=== PATIENT | male | born 1950 | race Caucasian/White ===

== ENCOUNTER → 2020-04-20 09:17 | Outpatient (BNVA) | payer MEDICARE, SELFPAY | PROVIDERS: PCP Nurse Practitioner Family; Visit Provider Urology | DX: N13.30 Unspecified hydronephrosis (principal); N32.0 Bladder-neck obstruction; N52.9 Male erectile dysfunction, unspecified | CPT/HCPCS: 81002; 99212 ==

== ENCOUNTER → 2020-04-22 08:52 | Outpatient (BNVA) | payer MEDICARE, SELFPAY | PROVIDERS: Visit Provider Orthopaedic Surgery | DX: M19.071 Primary osteoarthritis, right ankle and foot (principal); I10 Essential (primary) hypertension | CPT/HCPCS: 20605; 99212; J1100 ==

== ENCOUNTER → 2020-05-05 07:09 | Outpatient (REF) | payer MEDICARE, SELFPAY ==
--- NOTE | 2020-05-05 07:17 | NM_ITS ---
EXAMINATION: NM KIDNEY IMAGING CLINICAL INFORMATION: Atrophy of kidney. COMPARISON: None TECHNIQUE: Following intravenous administration of 10 mCi of 99m Tc DTPA,, imaging over the posterior abdomen was obtained up to 60 minutes. 40 mg of Lasix was administered at 30 minutes into the procedure. FINDINGS: Following IV injection, there is symmetrical bilateral renal perfusion. There is normal cortical uptake with slow excretion and no response post Lasix as more than 50% of contrast was already excreted. On renogram, the right kidney cortical uptake is 56% and the left kidney cortical uptake is 44%. No hydronephrosis or obstruction seen. Time to peak activity in right kidney 3.08 minutes and left kidney 4.08 minutes. NM/NM renal imaging IMPRESSION: Normal bilateral renal perfusion. Almost symmetrical cortical uptake with better cortical function right kidney. No hydronephrosis seen. Post Lasix, there is no significant response as the majority of renal activity has been excreted.
== END ==
LOC: HO.NUCMED 07:09
PROVIDERS: PCP Nurse Practitioner Family; Visit Provider Urology
DX: N26.1 Atrophy of kidney (terminal) (principal); N13.30 Unspecified hydronephrosis
CPT/HCPCS: 78700; A9539; J1940

== ENCOUNTER → 2020-05-13 08:46 | Outpatient (BNVA) | payer MEDICARE, SELFPAY | PROVIDERS: PCP Nurse Practitioner Family; Visit Provider Urology | DX: N13.30 Unspecified hydronephrosis (principal); N32.0 Bladder-neck obstruction | CPT/HCPCS: Q3014 ==

== ENCOUNTER → 2020-07-16 09:49 | Outpatient (BNVA) | payer MEDICARE, SELFPAY | PROVIDERS: Visit Provider Physician Assistant | DX: M77.01 Medial epicondylitis, right elbow (principal) | CPT/HCPCS: 20551; 99212; J1020 ==

== ENCOUNTER 2020-11-02 07:52 | Outpatient (REF) | payer MEDICARE, SELFPAY ==
[2020-11-02 12:17] LABS: TSH reflex Free T4 0.77 uIU/mL (0.32-4.0)
[2020-11-02 12:22] LABS: Alanine Aminotransferase 17 U/L (0-40); Albumin Level 4.5 g/dL (3.5-5.0); Alkaline Phosphatase 65 U/L (39-117); Anion Gap 16 (12-20); Aspartate Amino Transferase 18 U/L (5-37); Bilirubin Total 0.8 mg/dL (0.0-1.0); Blood Urea Nitrogen 29 mg/dL (9-16); Carbon Dioxide 23 mmol/L (22-29); Chloride 95 mmol/L (96-108); Cholesterol 178 mg/dL; Estimated Glomerular Filt Rate 38; Glucose Fasting 97 mg/dL (60-99); HDL Cholesterol 101 mg/dL; LDL Cholesterol Calculated 67 mg/dl; Potassium 4.6 mmol/L (3.3-5.1); Sodium 129 mmol/L (135-145); Total Protein 7.6 g/dL (6.5-8.0); Triglycerides 54 mg/dL
== END 2020-11-02 07:53 | disposition home or self-care (01) ==
LOC: HO.HMGCLDS 07:52
PROVIDERS: PCP Internal Medicine; Visit Provider Nurse Practitioner Family
DX: I10 Essential (primary) hypertension (principal)
CPT/HCPCS: 36415; 80053; 80061; 84443

== ENCOUNTER 2020-11-09 09:07 | Outpatient (REF) | payer MEDICARE, SELFPAY ==
[2020-11-09 11:51] LABS: Osmolality, Serum 275 mosm/kg (281-305)
[2020-11-09 12:09] LABS: Anion Gap 14 (12-20); Carbon Dioxide 24 mmol/L (22-29); Chloride 96 mmol/L (96-108); Potassium 4.8 mmol/L (3.3-5.1); Sodium 129 mmol/L (135-145)
[2020-11-09 12:45] LABS: Osmolality Urine 228 mosm/kg (373-1093)
== END 2020-11-09 09:08 | disposition home or self-care (01) ==
LOC: HO.HMGCLDS 09:07
PROVIDERS: PCP Internal Medicine; Visit Provider Nurse Practitioner Family
DX: E87.1 Hypo-osmolality and hyponatremia (principal)
CPT/HCPCS: 36415; 80051; 83930; 83935

== ENCOUNTER → 2020-11-10 08:21 | Outpatient (BNVA) | payer MEDICARE, SELFPAY | PROVIDERS: PCP Internal Medicine; Visit Provider Urology | DX: N32.0 Bladder-neck obstruction (principal); N52.9 Male erectile dysfunction, unspecified; N13.30 Unspecified hydronephrosis | CPT/HCPCS: 51798; 99212 ==

== ENCOUNTER 2020-11-24 08:06 | Outpatient (REF) | payer MEDICARE, SELFPAY ==
[2020-11-24 12:12] LABS: Anion Gap 15 (12-20); Blood Urea Nitrogen 28 mg/dL (9-16); Calcium 8.9 mg/dL (8.4-10.2); Carbon Dioxide 23 mmol/L (22-29); Chloride 97 mmol/L (96-108); Estimated Glomerular Filt Rate 33; Glucose Random 98 mg/dL (60-115); Potassium 5.3 mmol/L (3.3-5.1); Sodium 130 mmol/L (135-145)
== END 2020-11-24 08:07 | disposition home or self-care (01) ==
LOC: HO.HMGCLDS 08:06
PROVIDERS: PCP Internal Medicine; Visit Provider Internal Medicine
DX: E87.1 Hypo-osmolality and hyponatremia (principal)
CPT/HCPCS: 36415; 80048

== ENCOUNTER 2020-12-22 09:42 | Outpatient (REF) | payer MEDICARE, SELFPAY ==
[2020-12-22 12:22] LABS: Alanine Aminotransferase 20 U/L (0-40); Albumin Level 4.5 g/dL (3.5-5.0); Alkaline Phosphatase 56 U/L (39-117); Anion Gap 15 (12-20); Aspartate Amino Transferase 19 U/L (5-37); Blood Urea Nitrogen 22 mg/dL (9-16); Calcium 9.8 mg/dL (8.4-10.2); Carbon Dioxide 22 mmol/L (22-29); Chloride 103 mmol/L (96-108); Estimated Glomerular Filt Rate 35; Glucose Random 100 mg/dL (60-115); Sodium 135 mmol/L (135-145); Total Protein 7.6 g/dL (6.5-8.0)
== END 2020-12-22 09:43 | disposition home or self-care (01) ==
LOC: HO.HMGCLDS 09:42
PROVIDERS: PCP Internal Medicine; Visit Provider Nurse Practitioner Family
DX: E87.1 Hypo-osmolality and hyponatremia (principal); E87.5 Hyperkalemia
CPT/HCPCS: 36415; 80053

== ENCOUNTER 2021-04-01 09:05 | Outpatient (REF) | payer MEDICARE, SELFPAY ==
[2021-04-01 11:28] LABS: MANUAL DIFF FLAG NO
[2021-04-01 11:33] LABS: Basophils Percent Auto 0.5 % (0-2); Eosinophils Absolute Auto 0.4 X10*3/uL (0.0-0.4); Hematocrit 32.6 % (42.0-52.0); Imm Gran Abs Auto 0.02 X10*3/uL (0.00-0.03); Imm Gran Pct Auto 0.3 % (0.0-0.4); Lymphocytes Absolute Auto 1.9 X10*3/uL (1.2-4.9); Lymphocytes Percent Auto 26.2 % (20-40); Mean Corpuscular HGB Conc 33.7 g/dl (31.0-36.0); Mean Corpuscular Hemoglobin 32.5 pg (27.0-33.0); Mean Corpuscular Volume 96.4 fL (80.0-98.0); Mean Platelet Volume 9.7 fL (9.4-12.4); Monocytes Absolute Auto 0.8 X10*3/uL (0.1-1.2); Monocytes Percent Auto 10.3 % (2-11); Neutrophils Absolute Auto 4.2 x10*3/uL (2.0-8.3); Neutrophils Percent Auto 56.7 % (45-73); Platelet Count 237 X10*3/uL (160-400); Red Blood Count 3.38 X10*6/uL (4.60-5.80); Red Cell Distribution Width 12.4 % (11.0-16.0); White Blood Count 7.4 X10*3/uL (4.8-10.8)
[2021-04-01 11:37] LABS: Appearance Urine CLEAR; Color Urine YELLOW; Glucose Urine UA NEG (NEG); Leukocyte Esterase Urine NEG (NEG); Nitrite Urine NEG (NEG); Specific Gravity - Urine 1.015 (1.005-1.025); Urine Blood NEG (NEG); Urine Ketones NEG (NEG); Urine Protein NEG (NEG-TRACE)
[2021-04-01 12:14] LABS: Prostate Specific Antigen 2.15 ng/mL (<0.05-4.0)
[2021-04-01 12:16] LABS: Ferritin 177 ng/mL (20-250); Vitamin D 25-OH Total 41.4 ng/mL (>30)
[2021-04-01 12:19] LABS: Alanine Aminotransferase 21 U/L (0-40); Albumin Level 4.5 g/dL (3.5-5.0); Alkaline Phosphatase 67 U/L (39-117); Anion Gap 18 (12-20); Aspartate Amino Transferase 17 U/L (5-37); Bilirubin Direct 0.3 mg/dL (0.0-0.5); Bilirubin Total 0.7 mg/dL (0.0-1.0); Blood Urea Nitrogen 38 mg/dL (9-16); Calcium 9.7 mg/dL (8.4-10.2); Carbon Dioxide 23 mmol/L (22-29); Chloride 101 mmol/L (96-108); Cholesterol 177 mg/dL; Estimated Glomerular Filt Rate 19; HDL Cholesterol 95 mg/dL; Iron 63 mcg/dL (45-160); LDL Cholesterol Calculated 70 mg/dl; Magnesium 1.8 mg/dL (1.6-2.6); Percent Iron Saturation 20 % (15-50); Phosphorus 3.1 mg/dL (2.7-4.5); Potassium 4.7 mmol/L (3.3-5.1); Sodium 137 mmol/L (135-145); Total Iron Binding Capacity 323 mcg/dL (228-428); Total Protein 7.9 g/dL (6.5-8.0); Triglycerides 62 mg/dL; Unsaturated Iron Binding 260 ug/dL; Uric Acid 13.1 mg/dL (3.4-7.0)
[2021-04-01 12:20] LABS: Creatinine Urine 181.46 mg/dL; Total Protein Urine Random 18 mg/dL (<12)
[2021-04-01 12:27] LABS: Folate 19.4 ng/mL (> or = 4.0); Vitamin B12 379 pg/mL (200-900)
[2021-04-04 12:15] LABS: PTHI 39 pg/mL (14-64)
== END 2021-04-01 09:06 | disposition home or self-care (01) ==
LOC: HO.HMGCLDS 09:05
PROVIDERS: Absent Provider Urology; PCP Internal Medicine; Visit Provider Internal Medicine Nephrology
DX: N40.1 Benign prostatic hyperplasia with lower urinary tract symptoms (principal); N13.8 Other obstructive and reflux uropathy; N32.0 Bladder-neck obstruction; N18.32 Chronic kidney disease, stage 3b; N13.70 Vesicoureteral-reflux, unspecified; Z12.5 Encounter for screening for malignant neoplasm of prostate
CPT/HCPCS: 36415; 80051; 80061; 80076; 81003; 82306; 82310; 82565; 82607; 82728; 82746; 83540; 83735; 83970; 84100; 84153; 84156; 84520; 84550; 85025

== ENCOUNTER 2021-05-26 15:06 | Outpatient (REF) | payer MEDICARE, SELFPAY ==
--- NOTE | ~2021-05-26 | US_ITS ---
EXAMINATION: US VENOUS ULTRASOUND WITH DOPPLER LOWER EXTREMITY, RIGHT CLINICAL INFORMATION: Edema. COMPARISON: None TECHNIQUE: Ultrasound of the deep veins is performed from the hip to the calf with compression sonography and color and pulse Doppler assessment. Spectral analysis with color-flow imaging is performed. FINDINGS: There is normal venous compression and respiratory variation and augmented flow. The visualized common femoral vein, superficial femoral vein, profunda femoral vein, popliteal vein, and the trifurcation region shows no evidence of deep venous thrombosis. There is no significant popliteal fossa cyst. There are 2 focal areas of fluid collection anterior to the knee joint measuring 2.7 x 0.36 x 0.57 cm and 3.0 x 0.40 x 1.6 cm. If the patient's symptoms persist, followup ultrasound in 5 days 7 days might be of value to exclude proximal propagation from a non-visualized calf vein. US/US venous duplex LE RT IMPRESSION: No DVT demonstrated in the right lower extremity. 2 areas of focal fluid collection anterior to the knee joint. Question injury. No fluid collection seen in the popliteal fossa.
== END 2021-05-26 15:07 | disposition home or self-care (01) ==
LOC: HO.HMGCX 15:06
PROVIDERS: PCP Internal Medicine; Visit Provider Physician Assistant Medical
DX: R60.9 Edema, unspecified (principal); M79.604 Pain in right leg
CPT/HCPCS: 93971

== ENCOUNTER → 2021-05-31 08:46 | Outpatient (BNVA) | payer MEDICARE, SELFPAY | PROVIDERS: PCP Internal Medicine; Visit Provider Urology | DX: N32.0 Bladder-neck obstruction (principal); N52.9 Male erectile dysfunction, unspecified | CPT/HCPCS: 51798; 99212 ==

== ENCOUNTER 2021-06-16 08:37 | Outpatient (REF) | payer MEDICARE, SELFPAY ==
--- NOTE | ~2021-06-16 | XR_ITS ---
EXAMINATION: XR KNEE BILATERAL XR KNEE, RIGHT CLINICAL INFORMATION: Pain COMPARISON: None TECHNIQUE: AP standing view of both knees. Lateral and sunrise views of the right knee. FINDINGS: Right knee: No acute fracture or subluxation. Compartmental joint spaces are maintained. No joint effusion. Enthesophyte formation of the patella. Vascular calcifications are noted. Left knee: No acute fracture or subluxation on the frontal view. Joint spaces maintained. XR/XR knee RT 2V IMPRESSION: No acute abnormality of the right knee. No significant arthritic changes.
--- NOTE | ~2021-06-16 | XR_ITS ---
EXAMINATION: XR KNEE BILATERAL XR KNEE, RIGHT CLINICAL INFORMATION: Pain COMPARISON: None TECHNIQUE: AP standing view of both knees. Lateral and sunrise views of the right knee. FINDINGS: Right knee: No acute fracture or subluxation. Compartmental joint spaces are maintained. No joint effusion. Enthesophyte formation of the patella. Vascular calcifications are noted. Left knee: No acute fracture or subluxation on the frontal view. Joint spaces maintained. XR/XR knee standing BI IMPRESSION: No acute abnormality of the right knee. No significant arthritic changes.
== END 2021-06-16 08:38 | disposition home or self-care (01) ==
LOC: HO.HOSX 08:37
PROVIDERS: Visit Provider Orthopaedic Surgery
DX: M70.41 Prepatellar bursitis, right knee (principal)
CPT/HCPCS: 73560; 73565; 99212

== ENCOUNTER → 2021-09-01 09:57 | Outpatient (BNVA) | payer MEDICARE, SELFPAY | PROVIDERS: PCP Internal Medicine; Visit Provider Orthopaedic Surgery | DX: M70.52 Other bursitis of knee, left knee (principal) | CPT/HCPCS: 20610; 99212; J1100 ==

== ENCOUNTER → 2021-11-25 08:54 | Outpatient (BNVA) | payer MEDICARE, SELFPAY | PROVIDERS: PCP Internal Medicine; Visit Provider Urology | DX: N52.9 Male erectile dysfunction, unspecified (principal); N32.0 Bladder-neck obstruction; N13.30 Unspecified hydronephrosis | CPT/HCPCS: 51798; 99212 ==

== ENCOUNTER 2022-07-12 08:02 | Outpatient (REF) | payer MEDICARE, SELFPAY ==
[2022-07-12 11:04] LABS: MANUAL DIFF FLAG NO
[2022-07-12 11:17] LABS: Basophils Absolute Auto 0.1 X10*3/uL (0.0-0.2); Basophils Percent Auto 0.6 % (0-2); Eosinophils Absolute Auto 0.4 X10*3/uL (0.0-0.4); Eosinophils Percent Auto 5.1 % (0-4); Hematocrit 35.6 % (42.0-52.0); Hemoglobin 11.9 g/dl (14.0-18.0); Imm Gran Abs Auto 0.03 X10*3/uL (0.00-0.03); Imm Gran Pct Auto 0.4 % (0.0-0.4); Lymphocytes Absolute Auto 2.4 X10*3/uL (1.2-4.9); Lymphocytes Percent Auto 29.4 % (20-40); Mean Corpuscular HGB Conc 33.4 g/dl (31.0-36.0); Mean Corpuscular Hemoglobin 32.8 pg (27.0-33.0); Mean Corpuscular Volume 98.1 fL (80.0-98.0); Mean Platelet Volume 9.5 fL (9.4-12.4); Monocytes Absolute Auto 0.8 X10*3/uL (0.1-1.2); Monocytes Percent Auto 10.1 % (2-11); Neutrophils Absolute Auto 4.4 x10*3/uL (2.0-8.3); Neutrophils Percent Auto 54.4 % (45-73); Platelet Count 276 X10*3/uL (160-400); Red Blood Count 3.63 X10*6/uL (4.60-5.80); Red Cell Distribution Width 12.7 % (11.0-16.0); White Blood Count 8.1 X10*3/uL (4.8-10.8)
[2022-07-12 11:48] LABS: Alanine Aminotransferase 18 U/L (0-40); Albumin Level 4.4 g/dL (3.5-5.0); Alkaline Phosphatase 68 U/L (39-117); Anion Gap 15 (12-20); Aspartate Amino Transferase 15 U/L (5-37); Bilirubin Total 0.9 mg/dL (0.0-1.0); Blood Urea Nitrogen 37 mg/dL (9-16); Calcium 9.1 mg/dL (8.4-10.2); Carbon Dioxide 24 mmol/L (22-29); Chloride 104 mmol/L (96-108); Cholesterol 187 mg/dL; Estimated Glomerular Filt Rate 24; Glucose Fasting 104 mg/dL (60-99); HDL Cholesterol 92 mg/dL; LDL Cholesterol Calculated 83 mg/dl; Sodium 138 mmol/L (135-145); Total Protein 7.8 g/dL (6.5-8.0); Triglycerides 62 mg/dL
== END 2022-07-12 08:03 | disposition home or self-care (01) ==
LOC: HO.HMGCLDS 08:02
PROVIDERS: PCP Internal Medicine; Visit Provider Internal Medicine
DX: I12.9 Hypertensive chronic kidney disease with stage 1 through stage 4 chronic kidney disease, or unspecified chronic kidney disease (principal); N18.30 Chronic kidney disease, stage 3 unspecified; E78.5 Hyperlipidemia, unspecified
CPT/HCPCS: 36415; 80053; 80061; 85025

== ENCOUNTER 2022-11-23 07:32 | Outpatient (REF) | payer MEDICARE, SELFPAY ==
[2022-11-23 11:08] LABS: MANUAL DIFF FLAG NO
[2022-11-23 11:29] LABS: Appearance Urine Clear; Color Urine Yellow; Glucose Urine UA Negative (Negative); Leukocyte Esterase Urine Negative (Negative); Nitrite Urine Negative (Negative); Specific Gravity - Urine 1.015 (1.005-1.025); UMIC TRIGGER UACC YES; Urine Blood Negative (Negative); Urine Ketones Negative (Negative); Urine Protein 30 (1+) mg/dL (Neg-Trace)
[2022-11-23 11:32] LABS: Basophils Absolute Auto 0.1 X10*3/uL (0.0-0.2); Basophils Percent Auto 0.8 % (0-2); Eosinophils Absolute Auto 0.7 X10*3/uL (0.0-0.4); Eosinophils Percent Auto 8.3 % (0-4); Hematocrit 33.4 % (42.0-52.0); Hemoglobin 11.6 g/dl (14.0-18.0); Imm Gran Abs Auto 0.04 X10*3/uL (0.00-0.03); Imm Gran Pct Auto 0.5 % (0.0-0.4); Lymphocytes Absolute Auto 2.3 X10*3/uL (1.2-4.9); Lymphocytes Percent Auto 29.3 % (20-40); Mean Corpuscular HGB Conc 34.7 g/dl (31.0-36.0); Mean Corpuscular Hemoglobin 31.9 pg (27.0-33.0); Mean Corpuscular Volume 91.8 fL (80.0-98.0); Mean Platelet Volume 9.2 fL (9.4-12.4); Monocytes Absolute Auto 0.9 X10*3/uL (0.1-1.2); Monocytes Percent Auto 11.5 % (2-11); Neutrophils Absolute Auto 3.9 x10*3/uL (2.0-8.3); Neutrophils Percent Auto 49.6 % (45-73); Platelet Count 272 X10*3/uL (160-400); Red Blood Count 3.64 X10*6/uL (4.60-5.80); Red Cell Distribution Width 12.8 % (11.0-16.0); White Blood Count 7.8 X10*3/uL (4.8-10.8)
[2022-11-23 11:35] LABS: Bacteria Urine None Seen (None Seen); Hyaline Casts Urine 0-2 /LPF (0-2); RBC Urine 0-2 /HPF (0-2); Squamous Epithelial Cell Urine 0-2 /HPF (0-2); WBC Urine 0-5 /HPF (0-5)
[2022-11-23 12:07] LABS: Alanine Aminotransferase 23 U/L (0-40); Albumin Level 4.4 g/dL (3.5-5.0); Alkaline Phosphatase 60 U/L (39-117); Anion Gap 15 (12-20); Aspartate Amino Transferase 22 U/L (5-37); Bilirubin Total 1.3 mg/dL (0.0-1.0); Blood Urea Nitrogen 15 mg/dL (9-16); Calcium 10.3 mg/dL (8.4-10.2); Carbon Dioxide 23 mmol/L (22-29); Chloride 94 mmol/L (96-108); Cholesterol 179 mg/dL; Estimated Glomerular Filt Rate 41; Glucose Fasting 100 mg/dL (60-99); HDL Cholesterol 110 mg/dL; LDL Cholesterol Calculated 60 mg/dl; Potassium 4.8 mmol/L (3.3-5.1); Sodium 127 mmol/L (135-145); Total Protein 7.7 g/dL (6.5-8.0); Triglycerides 49 mg/dL
[2022-11-23 12:15] LABS: Prostate Specific Antigen 2.39 ng/mL (<0.05-4.0)
[2022-11-23 12:24] LABS: TSH reflex Free T4 1.01 uIU/mL (0.32-4.0)
== END 2022-11-23 07:33 | disposition home or self-care (01) ==
LOC: HO.HMGCLDS 07:32
PROVIDERS: Urology; PCP Nurse Practitioner Family; Visit Provider Nurse Practitioner Family
DX: Z12.5 Encounter for screening for malignant neoplasm of prostate (principal); N13.8 Other obstructive and reflux uropathy; N32.0 Bladder-neck obstruction; N40.1 Benign prostatic hyperplasia with lower urinary tract symptoms; I12.9 Hypertensive chronic kidney disease with stage 1 through stage 4 chronic kidney disease, or unspecified chronic kidney disease; N18.30 Chronic kidney disease, stage 3 unspecified
CPT/HCPCS: 36415; 80053; 80061; 81001; 84153; 84443; 85025

== ENCOUNTER 2022-11-28 09:13 | Outpatient (AMB) | payer MEDICARE, SELFPAY ==
--- NOTE | 2022-11-28 09:31 | A.OFFVIS_ITS ---
Intake Intake Visit Reasons: 1Y PSA(psa?) Intake Note: Patient is present for Follow Up PSA Urology Med: Finasteride, Tadalafil Antibiotic Allergy: Sulfa Antibiotic, Trimethroprim Blood Thinner: None Allergies morphine [MORPHINE] Allergy (Mild, Verified 11/28/22 09:33) CONSTIPATION sulfamethoxazole [From Bactrim] Allergy (Unknown, Verified 11/28/22 09:33) Unknown trimethoprim [From Bactrim] Allergy (Unknown, Verified 11/28/22 09:33) Unknown diclofenac Adverse Reaction (Intermediate, Verified 11/28/22 09:33) worsening renal function, hyperkalemia HPI HPI Comments History of Present Illness Details Erasto is a pleasant male. He is a patient of Dr. Whyte, He is seen for the following urologic conditions - BPH - prior hydronephrosis - manage through Dr. Valencia Creatinine stable PSA 12/03 2.4 6 month follow-up PVR Lower Urinary Tract Symptoms: Current visit is for further evaluation of, lower urinary tract symptoms, predominate obstructive symptoms. Current treatment includes medication, alpha gudelia, tamsulosin - since 2007 - added finasteride 07/30 - 08/30 stent with prostate procedure - 07/03 stent removal. - 12/03 combination finasteride and tadalafil g daily Prior treatments include 08/30 prostate procedure, stents 09/29 Lasix renogram. Right 58%, left 42%, reported T 1/2 20 minutes left. States good perfusion with clearance. No obvious obstruction.. - 05/02 Lasix renogram. Prompt excretion bilateral, T half less than 5 minutes bilateral. Prostate Symptom Score 07/02 , Mild (0-8), Bother 3. Symptoms include 07/02 , incomplete emptying, weak stream, and are stable. PSA 07/30 Cr 1.78 08/30 Cr 1.9 01/30 Cr 2.2 07/03 Cr 1.6, 10/31 Cr 1.7, 05/02 2.1, 10/02 1.8, 12/03 1.6 Treatment plan - continue [facility] Medical History Chronic kidney disease High cholesterol HTN (hypertension) Hyponatremia Kidney disease Other hydronephrosis Poor urinary stream Surgical History History of prostate surgery History of right hip replacement S/P foot surgery, right Family History Father Alzheimer's dementia Mother Heart attack HTN (hypertension) [facility] Alcohol intake: current Alcohol intake frequency: a few times a week Alcohol type: beer Patient Tobacco Use Status: Current someday Tobacco user Tobacco use type: Cigar e-Cigarette/Vaping Use: Never Used Current occupational status: retired Current occupation: right handed Cognitive needs: No Hearing needs: No Vision needs: No Review of Systems Const Denies chills and Denies fever(s) Card Reports no additional complaints and Denies syncope Resp Denies cough GI Denies abdominal pain and Denies heartburn Reports as per HPI and Denies change in libido Neuro Denies syncope Psych Denies change in libido Endo Denies change in libido Physical Exam Const General: cooperative, healthy appearing, comfortable and no acute distress Orientation/consciousness: patient oriented x3 HEENT Face and sinus: Yes normal facial exam Mouth: moist mucous membranes Neck Neck: Yes normal visual inspection, Yes full ROM and Yes trachea midline Chest Chest palpation & inspection: normal inspection of the chest Resp Effort & Inspection: normal respiratory effort, able to speak in complete sentences and no respiratory distress GI Inspection: Yes normal to inspection Back/Spine/Pelvis Cervical Spine: normal cervical lordosis Thoracic/Lumbar Spine: thoracic and lumbar spine normal to inspection Skin General skin exam: no rashes or lesions noted Neuro General: patient oriented x3, gait normal, tone normal and moves all extremities Extrem General: Yes normal to inspection and Yes capillary refill normal Assessment & Plan Assessment & Plan (1) Hydronephrosis: Code(s): N13.30 - Unspecified hydronephrosis (2) Bladder outlet obstruction: Comment: s/p TURP 2019 Code(s): N32.0 - Bladder-neck obstruction Plan Six month follow-up PVR Patient Instructions: Imaging studies, laboratory and physical exam results were discussed and reviewed in detail. No major barriers to patient understanding were identified. An opportunity to ask questions regarding the treatment plan was provided. All questions were answered. The patient expressed understanding and agreement with the above treatment plan. The patient is aware they should contact our office by phone for worsening of their current condition or the appearance of new urologic symptoms. Compliance is encouraged with any medications and followup testing that is ordered. It is a privilege to participate in the urologic care of your patient. If you have any questions or concerns regarding treatment for the above conditions, or other urologic issues, please do not hesitate to contact me. The office telephone contact is [phone]. This note is constructed using voice recognition software. While every effort has been made to ensure accuracy logging operations inspector errors may have been included. Yours sincerely, Dr Chico Cooper MD, [facility] - Urology Providers of Expert, Compassionate Care for the Genitourinary System Coding Level of Care Code Est Pt Level 4 (77934) Diagnoses Hydronephrosis N13.30 Bladder outlet obstruction N32.0
== END 2022-11-28 10:01 | disposition home or self-care (01) ==
PROVIDERS: PCP Internal Medicine; Visit Provider Urology
DX: N13.30 Unspecified hydronephrosis (principal); N32.0 Bladder-neck obstruction
CPT/HCPCS: 99213

== ENCOUNTER → 2022-11-28 09:13 | Outpatient (BNVA) | payer MEDICARE, SELFPAY | PROVIDERS: PCP Internal Medicine; Visit Provider Urology | DX: N13.30 Unspecified hydronephrosis (principal); N32.0 Bladder-neck obstruction; N40.1 Benign prostatic hyperplasia with lower urinary tract symptoms; N13.8 Other obstructive and reflux uropathy; R33.8 Other retention of urine; R39.12 Poor urinary stream; Z79.899 Other long term (current) drug therapy | CPT/HCPCS: 99212 ==

== ENCOUNTER 2022-12-18 08:44 | Outpatient (REF) | payer MEDICARE, SELFPAY ==
[2022-12-18 11:25] LABS: Appearance Urine Clear; Color Urine Yellow; Glucose Urine UA Negative (Negative); Leukocyte Esterase Urine Negative (Negative); Nitrite Urine Negative (Negative); PH 5.5 (5.0-9.0); Specific Gravity - Urine 1.015 (1.005-1.025); Urine Blood Negative (Negative); Urine Ketones Negative (Negative); Urine Protein Trace mg/dL (Neg-Trace)
[2022-12-18 12:04] LABS: Anion Gap 18 (12-20); Blood Urea Nitrogen 21 mg/dL (9-16); Calcium 9.6 mg/dL (8.4-10.2); Carbon Dioxide 21 mmol/L (22-29); Chloride 101 mmol/L (96-108); Estimated Glomerular Filt Rate 31; Glucose Random 103 mg/dL (60-115); Iron 79 mcg/dL (45-160); Percent Iron Saturation 27 % (15-50); Sodium 135 mmol/L (135-145); Total Iron Binding Capacity 292 mcg/dL (228-428); Unsaturated Iron Binding 213 ug/dL
[2022-12-18 12:37] LABS: Folate 16.9 ng/mL (> or = 4.0); Vitamin B12 235 pg/mL (200-900)
[2022-12-18 13:03] LABS: Osmolality Urine 400 mosm/kg (373-1093); Osmolality, Serum 293 mosm/kg (281-305)
== END 2022-12-18 08:45 | disposition home or self-care (01) ==
LOC: HO.HMGCLDS 08:44
PROVIDERS: Nurse Practitioner Family; PCP Internal Medicine; Visit Provider Internal Medicine
DX: I12.9 Hypertensive chronic kidney disease with stage 1 through stage 4 chronic kidney disease, or unspecified chronic kidney disease (principal); N18.30 Chronic kidney disease, stage 3 unspecified; D64.9 Anemia, unspecified; E87.1 Hypo-osmolality and hyponatremia; I10 Essential (primary) hypertension
CPT/HCPCS: 36415; 80048; 81003; 82607; 82746; 83540; 83930; 83935

== ENCOUNTER 2023-01-24 10:39 | Outpatient (AMB) | payer MEDICARE, SELFPAY ==
[2023-01-24 10:43] VITALS: BP 160/88; PULSE 100; O2SAT 98; BMI 30.4
--- NOTE | 2023-01-24 10:43 | A.OFFPC_ITS ---
Vital Signs 01/24/23 10:43 01/24/23 11:39 Height 5 ft 7 in Weight 194 lb 2 oz BMI 30.4 BP 160/88 H 158/76 H Blood Pressure Location Lt brachial Lt brachial Position Sitting Sitting Pulse 100 Pulse Source Pulse Oximeter Pulse Oximetry (%) 98 Oxygen Delivery Method Room Air Intake Visit Reasons: PE Allergies morphine [MORPHINE] Allergy (Mild, Verified 01/24/23 10:45) CONSTIPATION sulfamethoxazole [From Bactrim] Allergy (Unknown, Verified 01/24/23 10:45) Unknown trimethoprim [From Bactrim] Allergy (Unknown, Verified 01/24/23 10:45) Unknown diclofenac Adverse Reaction (Intermediate, Verified 01/24/23 10:45) worsening renal function, hyperkalemia Medication List - Last Reconciled 01/24/23 by LONNIE SparksP- amlodipine 10 mg PO DAILY atorvastatin 20 mg PO DAILY famotidine (Acid-Pep) 20 mg PO BEDTIME PRN finasteride 5 mg PO DAILY 90 days folic acid 1 mg PO DAILY lisinopril 40 mg PO DAILY metoprolol succinate ER 50 mg PO DAILY tadalafil 20 mg PO DAILY Tobacco use date assessed: 01/24/23 Fall risk assessment: No Falls in past year Last assessed Fall Risk: 01/24/23 Dental Screening Dental Screen Date: 01/24/23 Did you have a dental visit in the last 12 months?: Yes Did you have a dental problem in the last 6 months where you did not have access to dental care?: No Was dental information given to patient?: Patient has dentist HPI PE HPI Details Pt is here for a PE. Will order labs. Colon screen is up to date. PSA is up to date, sees urology. EKG shows new RBBB. Will order echo and refer to cardiology. Pt is asymptomatic. Pt follows up with nephrology. Pt's blood pressure is elevated today, reports white-coat syndrome. He is taking amlodipine 10mg, lisinopril 40mg, and metoprolol 50mg. Pt reports that his blood pressure at home is in the 130s/70s. Denies chest pain, shortness of breath, headache, dizziness, and blurred vision. [facility] Medical History Chronic kidney disease High cholesterol HTN (hypertension) Hyponatremia Kidney disease Other hydronephrosis Poor urinary stream Surgical History History of prostate surgery History of right hip replacement S/P foot surgery, right Family History Father Alzheimer's dementia Mother Heart attack HTN (hypertension) Social History Housing: Condominium Alcohol intake: current Alcohol intake frequency: a few times a week Alcohol type: beer Patient Tobacco Use Status: Current someday Tobacco user Tobacco use type: Cigar e-Cigarette/Vaping Use: Never Used Current occupational status: retired Current occupation: right handed Cognitive needs: No Hearing needs: No Vision needs: No Questionnaire Thrive Questionnaire Date Thrive assessed: 10/17/21 VALENTINO-7 AMB Questionnaire VALENTINO-7 Date VALENTINO - 7 assessed: 10/17/21 Source: Developed by Drs. Mark Paulino, Fernanda Taylor, Andrés Salcedo and colleagues, with an educational artem from [employer]. Review of Systems Const Denies chills and Denies fever(s) Eyes Denies blurry vision ENT Denies vertigo, Denies dizziness and Denies sore throat Card Denies chest pain at rest, Denies chest pain with activity, Denies diaphoresis, Denies dyspnea and Denies dyspnea on exertion Resp Denies cough, Denies dyspnea, Denies dyspnea on exertion and Denies wheezing GI Denies abdominal pain, Denies melena, Denies hematochezia, Denies constipation, Denies diarrhea and Denies loose stools Denies hematuria Musc Denies numbness and Denies tingling Skin/Breast Denies lesions Neuro Denies vertigo, Denies dizziness, Denies numbness and Denies tingling Psych Denies anxiety, Denies depression, Denies homicidal ideation, Denies suicidal ideation and Denies other (substance abuse) Aller/Immun Denies wheezing Physical exam (Primary Care) Vital Signs: Last Vital Signs Pulse 100 01/24/23 10:43 BP 158/76 H 01/24/23 11:39 Pulse Ox 98 01/24/23 10:43 Oxygen Delivery Method Room Air 01/24/23 10:43 BMI result Body Mass Index 30.4 Tobacco/Smoking Status: Tobacco use Status Tobacco use date assessed 01/24/23 01/24/23 10:49 Patient Tobacco Use Status Current someday Tobacco 01/24/23 10:49 Tobacco use type Cigar 01/24/23 10:49 e-Cigarette/Vaping Use Never Used 01/24/23 10:49 Thrive Assessment: Date of Thrive Assessment Date Thrive assessed 10/17/21 01/24/23 10:49 Const General: cooperative Nutritional Appearance: well nourished Orientation/consciousness: patient oriented x3 HENMT Head: Yes normal to inspection, Yes normocephalic and Yes atraumatic Ears: TM's normal bilaterally Eyes General: appearance normal, both eyes and all related structures Alignment and Position: alignment normal and position normal Neck Neck: Yes normal visual inspection and Yes no lymphadenopathy Thyroid: Thyroid normal Resp Effort & Inspection: normal respiratory effort Auscultation: clear to auscultation bilaterally Cardio Rate: regular rate Rhythm: regular rhythm Heart sounds: S1 normal heart sound present, S2 normal heart sound present and no murmurs GI Other: small umbilical hernia Palpation (GI): Soft to palpation and nontender Auscultation: normal bowel sounds Male General Exam: Yes normal external exam Penis: normal penis Scrotum: scrotum normal, testes descended bilaterally and no inguinal hernias Testes: no testicular mass Skin Rashes: no rashes Neuro General: patient oriented x3, moves all extremities, no focal motor deficits and deep tendon reflexes 2+ bilaterally Romberg Test: Negative Psych Appearance: grossly normal Mental Status: mental status grossly normal Speech and movement: Normal speech and movement present Affect: normal affect Attitude: cooperative Thought process: Normal thought process present Thought content: Normal thought content present Insight: Good insight present (Psych) Judgement: Good judgement present (Psych) Assessment and Plan Assessment & Plan (1) Physical exam: Code(s): Z00.00 - Encounter for general adult medical examination without abnormal findings Plan: Labs ordered (2) RBBB: Code(s): I45.10 - Unspecified right bundle-branch block Plan: Echo ordered, referred to cardiology (3) White coat syndrome with diagnosis of hypertension: Code(s): I10 - Essential (primary) hypertension Plan The patient agreed to the use of a medical research associate for this encounter. Scribed for JENIFER David-HARRY by Aleena Torres, medical research associate, on 01/24/2023 at 11:00 EST. Orders: Orders Complete Blood Count Auto Diff Today Z00.00 - Encounter for general adult medical examination without abnormal findings TSH reflex Free T4 Today Z00.00 - Encounter for general adult medical examination without abnormal findings UA CC w/rflx Micro + Cult Today Z00.00 - Encounter for general adult medical examination without abnormal findings CA echo transthoracic complete Today I45.10 - Unspecified right bundle-branch block Comprehensive Met. Panel Today Z00.00 - Encounter for general adult medical examination without abnormal findings AMB EKG-In Office Today Z00.00 - Encounter for general adult medical examination without abnormal findings Referrals Cardiology Referral I45.10 - Unspecified right bundle-branch block Coding Level of Care Code Est Pt Prev Care >65y(03957) Diagnoses Physical exam Z00.00 RBBB I45.10 White coat syndrome with diagnosis of hypertension I10
[2023-01-24 11:39] VITALS: BP 158/76
== END 2023-01-24 12:07 | disposition home or self-care (01) ==
PROVIDERS: Visit Provider Nurse Practitioner Family
DX: Z00.00 Encounter for general adult medical examination without abnormal findings (principal); I45.10 Unspecified right bundle-branch block; I10 Essential (primary) hypertension
CPT/HCPCS: 99397

== ENCOUNTER 2023-01-26 08:10 | Outpatient (REF) | payer MEDICARE, SELFPAY ==
[2023-01-26 11:14] LABS: MANUAL DIFF FLAG NO
[2023-01-26 11:28] LABS: Appearance Urine Cloudy; Color Urine Yellow; Glucose Urine UA Negative (Negative); Leukocyte Esterase Urine Negative (Negative); Nitrite Urine Negative (Negative); PH 5.5 (5.0-9.0); Specific Gravity - Urine >= 1.030 (1.005-1.025); UMIC TRIGGER UACC YES; Urine Blood Trace (Negative); Urine Ketones Negative (Negative); Urine Protein 100 (2+) mg/dL (Neg-Trace)
[2023-01-26 11:35] LABS: Bacteria Urine None Seen (None Seen); Granular Casts Urine Present; Hyaline Casts Urine >20 /LPF (0-2); RBC Urine 0-2 /HPF (0-2); WBC Urine 0-5 /HPF (0-5)
[2023-01-26 11:41] LABS: Basophils Percent Auto 0.5 % (0-2); Eosinophils Absolute Auto 0.5 X10*3/uL (0.0-0.4); Eosinophils Percent Auto 6.1 % (0-4); Hematocrit 35.3 % (42.0-52.0); Hemoglobin 12.3 g/dl (14.0-18.0); Imm Gran Abs Auto 0.03 X10*3/uL (0.00-0.03); Imm Gran Pct Auto 0.4 % (0.0-0.4); Lymphocytes Absolute Auto 2.1 X10*3/uL (1.2-4.9); Mean Corpuscular HGB Conc 34.8 g/dl (31.0-36.0); Mean Corpuscular Hemoglobin 32.8 pg (27.0-33.0); Mean Corpuscular Volume 94.1 fL (80.0-98.0); Mean Platelet Volume 9.2 fL (9.4-12.4); Monocytes Absolute Auto 0.8 X10*3/uL (0.1-1.2); Monocytes Percent Auto 10.7 % (2-11); Neutrophils Absolute Auto 4.1 x10*3/uL (2.0-8.3); Neutrophils Percent Auto 54.3 % (45-73); Platelet Count 262 X10*3/uL (160-400); Red Blood Count 3.75 X10*6/uL (4.60-5.80); Red Cell Distribution Width 13.1 % (11.0-16.0); White Blood Count 7.5 X10*3/uL (4.8-10.8)
[2023-01-26 15:35] LABS: Alanine Aminotransferase 25 U/L (0-40); Albumin Level 4.6 g/dL (3.5-5.0); Alkaline Phosphatase 61 U/L (39-117); Anion Gap 16 (12-20); Aspartate Amino Transferase 27 U/L (5-37); Bilirubin Total 1.3 mg/dL (0.0-1.0); Blood Urea Nitrogen 12 mg/dL (9-16); Calcium 10.3 mg/dL (8.4-10.2); Carbon Dioxide 23 mmol/L (22-29); Chloride 100 mmol/L (96-108); Estimated Glomerular Filt Rate 46; Glucose Random 80 mg/dL (60-115); Potassium 4.7 mmol/L (3.3-5.1); Sodium 134 mmol/L (135-145); Total Protein 8.1 g/dL (6.5-8.0)
[2023-01-26 15:40] LABS: TSH reflex Free T4 0.91 uIU/mL (0.32-4.0)
== END 2023-01-26 08:11 | disposition home or self-care (01) ==
LOC: HO.HMGCLDS 08:10
PROVIDERS: PCP Nurse Practitioner Family; Visit Provider Nurse Practitioner Family
DX: Z00.00 Encounter for general adult medical examination without abnormal findings (principal); Z20.2 Contact with and (suspected) exposure to infections with a predominantly sexual mode of transmission; I10 Essential (primary) hypertension
CPT/HCPCS: 36415; 80053; 81001; 84443; 85025

== ENCOUNTER → 2023-02-20 12:28 | Outpatient (REF) | payer MEDICARE, SELFPAY | LOC: HO.CARD 12:28 | PROVIDERS: PCP Nurse Practitioner Family; Visit Provider Nurse Practitioner Family | DX: I45.10 Unspecified right bundle-branch block (principal) | CPT/HCPCS: 93306; Q9957 ==

== ENCOUNTER → 2023-02-20 12:30 | Outpatient (BNV) | payer MEDICARE, SELFPAY | PROVIDERS: PCP Nurse Practitioner Family; Visit Provider Internal Medicine | DX: I42.9 Cardiomyopathy, unspecified (principal) | CPT/HCPCS: 93306 ==

== ENCOUNTER 2023-04-27 08:49 | Outpatient (AMB) | payer MEDICARE, SELFPAY ==
[2023-04-27 08:57] VITALS: BP 138/68; PULSE 93; BMI 31.1
--- NOTE | 2023-04-27 08:57 | A.OFFVIS_ITS ---
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: No Accompanied by: Self / Same As Patient Allergies morphine [MORPHINE] Allergy (Mild, Verified 04/27/23 09:03) CONSTIPATION sulfamethoxazole [From Bactrim] Allergy (Unknown, Verified 04/27/23 09:03) Unknown trimethoprim [From Bactrim] Allergy (Unknown, Verified 04/27/23 09:03) Unknown diclofenac Adverse Reaction (Intermediate, Verified 04/27/23 09:03) worsening renal function, hyperkalemia Medication List - Last Reconciled 04/27/23 by Arnoldo Steen MD amlodipine 10 mg PO DAILY atorvastatin 20 mg PO DAILY famotidine (Acid-Pep) 20 mg PO BEDTIME PRN finasteride 5 mg PO DAILY 90 days folic acid 1 mg PO DAILY lisinopril 40 mg PO DAILY metoprolol succinate ER 50 mg PO DAILY tadalafil 20 mg PO DAILY HPI HPI Comments History of Present Illness Details Thank you for referring Kenji in cardiology consultation today for noted abnormal EKG with right bundle-branch block. Subsequently had an echocardiogram which showed hyperdynamic LV ejection fraction of 74% with mild asymmetric septal hypertrophy without any other significant abnormality. Patient has no cardiac symptoms. He said he goes to the gym twice a week and has no exertional chest pain or shortness of breath. During a recent physical exam is when he had an EKG done which had shown right bundle-branch block. EKG again done today in the office confirmed right bundle-branch block. Patient has longstanding history of hypertension which is well controlled but has a component of white coat hypertension. At home usually his blood pressure runs 130/70. Patient also has hyperlipidemia which is not well optimized on statin therapy. He has no history of diabetes. No prior cardiovascular history with no history of myocardial infarction or vascular disease with any intervention done. Patient has chronic kidney disease. Patient denies any palpitations, lightheadedness, syncope. [facility] Medical History Chronic kidney disease Kidney disease HTN (hypertension) Other hydronephrosis Poor urinary stream Hyponatremia High cholesterol Surgical History History of prostate surgery S/P foot surgery, right History of right hip replacement Family History Father Alzheimer's dementia Mother Heart attack HTN (hypertension) Social History [facility]: [facility] Alcohol intake: current Alcohol intake frequency: a few times a week Alcohol type: beer Patient Tobacco Use Status: Current someday Tobacco user Tobacco use type: Cigar e-Cigarette/Vaping Use: Never Used Current occupational status: retired Current occupation: right handed Cognitive needs: No Hearing needs: No Vision needs: No Review of Systems Const Reports chills, Reports fatigue, Reports fever(s), Reports frequent falls, Reports weakness, Reports weight gain and Reports weight loss ENT Reports dizziness Card Reports chest pain, Reports leg edema, Reports lightheadedness, Reports palpitations, Reports dyspnea and Reports dyspnea on exertion Resp Reports cough, Reports dyspnea and Reports dyspnea on exertion GI Reports hematochezia Musc Reports abnormal gait, Reports muscle weakness, Reports numbness, Reports radiating pain into limb and Reports tingling Neuro Reports abnormal gait, Reports dizziness, Reports frequent falls, Reports numbness, Reports tingling and Reports weakness Endo Reports fatigue and Reports palpitations Physical Exam Vital Signs: Last Vital Signs Pulse 93 04/27/23 08:57 BP 138/68 04/27/23 08:57 BMI result Body Mass Index 31.1 Const General: cooperative, comfortable, no acute distress, alert, awake and Physically active Nutritional Appearance: overweight Orientation/consciousness: patient oriented x3 Limitations: no limitations HEENT Head: Yes normocephalic and Yes atraumatic Neck Neck: Yes trachea midline, Yes supple and Yes no JVD Resp Effort & Inspection: normal respiratory effort Auscultation: clear to auscultation bilaterally Cardio Jugular venous distension: no JVD Palpation: normal PMI Rate: regular rate Rhythm: regular rhythm Heart sounds: S1 normal heart sound present, S2 normal heart sound present, no click, no gallops, no murmurs and no rubs GI Auscultation: normal bowel sounds Skin General skin exam: no rashes or lesions noted Neuro General: patient oriented x3 and no focal motor deficits Extrem General: Yes no clubbing, cyanosis or edema Psych Appearance: grossly normal Office Procedures EKG Details: EKG shows normal sinus rhythm with right bundle-branch block [id number], Complete Assessment & Plan Assessment & Plan (1) RBBB: Code(s): I45.10 - Unspecified right bundle-branch block Plan: Patient 72-year-old with risk factors of hypertension hyperlipidemia with noted right bundle-branch block on recent EKG. He is completely asymptomatic at his current work load. His echocardiogram shows overall normal structure of the heart. We discussed about pathophysiology right bundle-branch block and rare progression to advanced heart blocks. This was discussed with him. I would advise him to get annual EKG to evaluate for development of other conduction a bnormality over time. No other workup is indicated at this point time as this is not going to pack changer. He is currently asymptomatic. He is currently with well optimized risk factors with well optimized blood pressure as well as lipids. Continue current treatment. Importance of compliance with medication was discussed. He understands and agrees. Also discussed about gradually increasing his aerobic workload as per aha recommendations. Will follow up in the clinic if need be. Thank you for allowing me to partake in his care Coding Level of Care Code New Pt Level 3 (66337) Diagnoses RBBB I45.10 CPT Codes EKG - CPT: 26950-[id number], Complete ([id number])
== END 2023-04-27 09:23 | disposition home or self-care (01) ==
PROVIDERS: PCP Nurse Practitioner Family; Visit Provider Internal Medicine Cardiovascular Disease
DX: I45.10 Unspecified right bundle-branch block (principal)
CPT/HCPCS: 93010; 99203

== ENCOUNTER → 2023-04-27 08:49 | Outpatient (BNVA) | payer MEDICARE, SELFPAY | PROVIDERS: PCP Nurse Practitioner Family; Visit Provider Internal Medicine Cardiovascular Disease | DX: I45.10 Unspecified right bundle-branch block (principal) | CPT/HCPCS: 93005; 99202 ==

== ENCOUNTER 2023-05-28 09:07 | Outpatient (AMB) | payer MEDICARE, SELFPAY ==
--- NOTE | 2023-05-28 09:15 | A.OFFPC_ITS ---
Vital Signs 05/28/23 09:18 Weight 196 lb BP 130/78 Blood Pressure Location Rt brachial Position Sitting Pulse 103 H Pulse Source Pulse Oximeter Pulse Oximetry (%) 99 Oxygen Delivery Method Room Air Intake Visit Reasons: HTN 4M follow up Intake Note: Patient here for HTN F/U. Pt states BP's have been good 100/72, he checks them about 2x a week. 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 Accompanied by: Self / Same As Patient Allergies morphine [MORPHINE] Allergy (Mild, Verified 05/28/23 09:19) CONSTIPATION sulfamethoxazole [From Bactrim] Allergy (Unknown, Verified 05/28/23 09:19) Unknown trimethoprim [From Bactrim] Allergy (Unknown, Verified 05/28/23 09:19) Unknown diclofenac Adverse Reaction (Intermediate, Verified 05/28/23 09:19) worsening renal function, hyperkalemia Medication List - Last Reconciled 05/28/23 by TANIKA Sparks amlodipine 10 mg PO DAILY atorvastatin 20 mg PO DAILY famotidine (Acid-Pep) 20 mg PO BEDTIME PRN finasteride 5 mg PO DAILY 90 days folic acid 1 mg PO DAILY lisinopril 40 mg PO DAILY metoprolol succinate ER 50 mg PO DAILY prednisone 50 mg PO DAILY tadalafil 20 mg PO DAILY Tobacco use date assessed: 05/28/23 Fall risk assessment: No Falls in past year Last assessed Fall Risk: 05/28/23 Dental Screening Dental Screen Date: 05/28/23 Did you have a dental visit in the last 12 months?: Yes Did you have a dental problem in the last 6 months where you did not have access to dental care?: No Was dental information given to patient?: Patient has dentist HPI HTN 4M follow up HPI Details HTN: Blood pressure is stable, managed with amlodipine 10mg, lisinopril 40mg, and metoprolol 50mg. Denies chest pain, shortness of breath, headache, dizziness, and blurred vision. Pt c/o wrist pain and swelling. Will send predn isone. Recommended stretching heat to the area as well. [facility] Medical History Chronic kidney disease Kidney disease HTN (hypertension) Other hydronephrosis Poor urinary stream Hyponatremia High cholesterol Surgical History History of prostate surgery S/P foot surgery, right History of right hip replacement Family History Father Alzheimer's dementia Mother Heart attack HTN (hypertension) Social History Housing: Condominium Alcohol intake: current Alcohol intake frequency: a few times a week Alcohol type: beer Patient Tobacco Use Status: Current someday Tobacco user Tobacco use type: Cigar e-Cigarette/Vaping Use: Never Used Current occupational status: retired Current occupation: right handed Cognitive needs: No Hearing needs: No Vision needs: No Questionnaire PHQ-9 Over the last 2 weeks, how often have you been bothered by any of the following problems? 48732 - PHQ-9 Billing: Patient declined-do not bill Source: Developed by Drs. Mark Paulino, Fernanda Taylor, Andrés Salcedo and colleagues, with an educational artem from [employer]. Thrive Questionnaire Date Thrive assessed: 05/28/23 I am a: Patient What is your living situation today?: I have a steady place to live Within the past 12 months, did the food you bought not last and you didn't have the money to get more?: Never true Within the past 12 months, did you worry whether your food would run out before you got money to buy more?: Never true Do you have trouble paying for medicines?: No Do you have trouble getting transportation to medical appointments?: No Do you have trouble paying your heating and electricity bill?: No Do you have trouble taking care of your child, family member or friend?: No Do you have trouble with day-to-day activities such as bathing, preparing meals, shopping, managing finances, etc.?: No Are you currently unemployed and looking for a job?: No Are you interested in more education?: No Currently or been in a relationship where the following occur: I choose not to answer this question AUDIT C Alcohol Use Questionnaire (AUDIT-C) 1. How often do you have a drink containing alcohol?: 4 or more times a week 2. How many drinks containing alcohol do you have on a typical day when you are drinking?: 3 or 4 3. How often do you have six or more drinks on one occasion?: Less than monthly Total Score: 6 Score Reviewed/Action Taken: Yes VALENTINO-7 AMB Questionnaire VALENTINO-7 Date VALENTINO - 7 assessed: 05/28/23 Feeling nervous, anxious, or on edge: 0 = Not at all Not being able to stop or control worryin = Not at all Worrying too much about different things: 0 = Not at all Trouble relaxin = Not at all Being so restless that it is hard to sit still: 0 = Not at all Becoming easily annoyed or irritable: 0 = Not at all Feeling afraid as if something awful might happen: 0 = Not at all Total VALENTINO-7 score (0-4 normal; 5-9 mild; 10-14 moderate; 15-21 severe): 0 Source: Developed by Drs. Mark Paulino, Fernanda Taylor, Andrés Salcedo and colleagues, with an educational artem from [employer]. VALENTINO-7 Assessment Billing VALENTINO-7 Assessment Tool: VALENTINO-7 Assessment 42301 Review of Systems Const Reports as per HPI Physical exam (Primary Care) Vital Signs: Last Vital Signs Pulse 103 H 05/28/23 09:18 BP 130/78 05/28/23 09:18 Pulse Ox 99 05/28/23 09:18 Oxygen Delivery Method Room Air 05/28/23 09:18 Tobacco/Smoking Status: Tobacco use Status Tobacco use date assessed 05/28/23 05/28/23 09:22 Patient Tobacco Use Status Current someday Tobacco 05/28/23 09:15 Tobacco use type Cigar 05/28/23 09:15 e-Cigarette/Vaping Use Never Used 05/28/23 09:15 Thrive Assessment: Date of Thrive Assessment Date Thrive assessed 10/17/21 05/28/23 09:15 Currently or been in a relationship where the following occur: I choose not to answer this question Const General: cooperative Orientation/consciousness: patient oriented x3 Resp Effort & Inspection: normal respiratory effort Auscultation: clear to auscultation bilaterally Cardio Rate: regular rate Rhythm: regular rhythm Heart sounds: S1 normal heart sound present and S2 normal heart sound present Neuro General: patient oriented x3 Psych Appearance: grossly normal Mental Status: mental status grossly normal Speech and movement: Normal speech and movement present Affect: normal affect Attitude: cooperative Thought process: Normal thought process present Thought content: Normal thought content present Insight: Good insight present (Psych) Judgement: Good judgement present (Psych) Assessment and Plan Assessment & Plan (1) HTN (hypertension): Code(s): I10 - Essential (primary) hypertension Plan: Labs ordered Plan The patient agreed to the use of a certified court/medical interpreter for this encounter. Scribed for TANIKA David by Aleena Torres certified court/medical interpreter, on 05/28/2023 at 09:25 EST. Orders: Orders Complete Blood Count Auto Diff Today I10 - Essential (primary) hypertension UA CC w/rflx Micro + Cult Today I10 - Essential (primary) hypertension Comprehensive [place]. Panel Fast Today I10 - Essential (primary) hypertension TSH reflex Free T4 Today I10 - Essential (primary) hypertension Lipid Panel Today I10 - Essential (primary) hypertension Medications: New prednisone 50 mg PO DAILY 7 tabs 0RF Coding Level of Care Code Est Pt Level 3 (86190) Diagnoses HTN (hypertension) I10 Additional Codes VALENTINO-7 Assessment Billing - VALENTINO-7 Assessment Tool: VALENTINO-7 Assessment 57657 ([id number])
[2023-05-28 09:18] VITALS: BP 130/78; PULSE 103; O2SAT 99
== END 2023-05-28 11:55 | disposition home or self-care (01) ==
PROVIDERS: PCP Internal Medicine; Visit Provider Nurse Practitioner Family
DX: I10 Essential (primary) hypertension (principal)
CPT/HCPCS: 99213

== ENCOUNTER 2023-06-01 08:20 | Outpatient (AMB) | payer MEDICARE, SELFPAY ==
--- NOTE | 2023-06-01 08:27 | MHC.OFFVIS ---
Intake Intake Visit Reasons: 6m/PVR(set) Intake Note: Patient is Present for Follow Up PVR Urology Medication: Finasteride, Tadalafil Antibiotic Allergies: Sulfa, Trimethoprim Blood Thinners: None PVR: 20 Allergies morphine [MORPHINE] Allergy (Mild, Verified 06/01/23 08:30) CONSTIPATION sulfamethoxazole [From Bactrim] Allergy (Unknown, Verified 06/01/23 08:30) Unknown trimethoprim [From Bactrim] Allergy (Unknown, Verified 06/01/23 08:30) Unknown diclofenac Adverse Reaction (Intermediate, Verified 06/01/23 08:30) worsening renal function, hyperkalemia Medication List - Last Reconciled 06/01/23 by Chico Cooper MD amlodipine 10 mg PO DAILY atorvastatin 20 mg PO DAILY famotidine (Acid-Pep) 20 mg PO BEDTIME PRN finasteride 5 mg PO DAILY 90 days folic acid 1 mg PO DAILY lisinopril 40 mg PO DAILY metoprolol succinate ER 50 mg PO DAILY prednisone 50 mg PO DAILY tadalafil 20 mg PO DAILY HPI HPI Comments History of Present Illness Details Erasto is a pleasant male. He is a patient of Dr. Whyte, He is seen for the following urologic conditions - BPH - prior hydronephrosis - manage through Dr. Valencia Six-month PVR 20 cc Continues with effective emptying PSA 12/03 2.4 Continues on finasteride 5 mg daily with tadalafil 20 mg daily Lower Urinary Tract Symptoms: Current visit is for further evaluation of, lower urinary tract symptoms, predominate obstructive symptoms. Current treatment includes medication, alpha gudelia, tamsulosin - since 2007 - added finasteride 07/30 - 08/30 stent with prostate procedure - 07/03 stent removal. - 12/03 combination finasteride and tadalafil g daily Prior treatments include 08/30 prostate procedure, stents 09/29 Lasix renogram. Right 58%, left 42%, reported T 1/2 20 minutes left. States good perfusion with clearance. No obvious obstruction.. - 05/02 Lasix renogram. Prompt excretion bilateral, T half less than 5 minutes bilateral. Prostate Symptom Score 07/02 , Mild (0-8), Bother 3. Symptoms include 07/02 , incomplete emptying, weak stream, and are stable. PSA 07/30 Cr 1.78 08/30 Cr 1.9 01/30 Cr 2.2 07/03 Cr 1.6, 10/31 Cr 1.7, 05/02 2.1, 10/02 1.8, 12/03 1.6, 02/03 1.5 Treatment plan - continue PVr [facility] Medical History Chronic kidney disease Kidney disease HTN (hypertension) Other hydronephrosis Poor urinary stream Hyponatremia High cholesterol Surgical History History of prostate surgery S/P foot surgery, right History of right hip replacement Family History Father Alzheimer's dementia Mother Heart attack HTN (hypertension) Social History Housing: [facility] Alcohol intake: current Alcohol intake frequency: a few times a week Alcohol type: beer Patient Tobacco Use Status: Current someday Tobacco user Tobacco use type: Cigar e-Cigarette/Vaping Use: Never Used Current occupational status: retired Current occupation: right handed Cognitive needs: No Hearing needs: No Vision needs: No Review of Systems Const Denies chills and Denies fever(s) Card Reports no additional complaints and Denies syncope Resp Denies cough GI Denies abdominal pain and Denies heartburn Reports as per HPI and Denies change in libido Neuro Denies syncope Psych Denies change in libido Endo Denies change in libido Physical Exam Const General: cooperative, healthy appearing, comfortable and no acute distress Orientation/consciousness: patient oriented x3 HEENT Face and sinus: Yes normal facial exam Mouth: moist mucous membranes Neck Neck: Yes normal visual inspection, Yes full ROM and Yes trachea midline Chest Chest palpation & inspection: normal inspection of the chest Resp Effort & Inspection: normal respiratory effort, able to speak in complete sentences and no respiratory distress GI Inspection: Yes normal to inspection Back/Spine/Pelvis Cervical Spine: normal cervical lordosis Thoracic/Lumbar Spine: thoracic and lumbar spine normal to inspection Skin General skin exam: no rashes or lesions noted Neuro General: patient oriented x3, gait normal, tone normal and moves all extremities Extrem General: Yes normal to inspection and Yes capillary refill normal Office Procedures Post Void Residual Post Residual Void Post Void Residual (PVR): 20 11161-[id number] Void Residual by ultrasound Assessment & Plan Assessment & Plan (1) Bladder outlet obstruction: Comment: s/p TURP 2019 Code(s): N32.0 - Bladder-neck obstruction (2) Erectile dysfunction: Code(s): N52.9 - Male erectile dysfunction, unspecified Plan Six month follow-up PSA tele Orders: Orders AMB Post Void Residual by ultrasound Today N32.0 - Bladder-neck obstruction Prostate Specific Antigen 6 Months N32.0 - Bladder-neck obstruction Patient Instructions: Imaging studies, laboratory and physical exam results were discussed and reviewed in detail. No major barriers to patient understanding were identified. An opportunity to ask questions regarding the treatment plan was provided. All questions were answered. The patient expressed understanding and agreement with the above treatment plan. The patient is aware they should contact our office by phone for worsening of their current condition or the appearance of new urologic symptoms. Compliance is encouraged with any medications and followup testing that is ordered. It is a privilege to participate in the urologic care of your patient. If you have any questions or concerns regarding treatment for the above conditions, or other urologic issues, please do not hesitate to contact me. The office telephone contact is [phone]. This note is constructed using voice recognition software. While every effort has been made to ensure accuracy dried yeast supervisor errors may have been included. Yours sincerely, Dr Chico Cooper MD, [facility] - Urology Providers of Expert, Compassionate Care for the Genitourinary System Coding Level of Care Code Est Pt Level 3 (98038) Diagnoses Bladder outlet obstruction N32.0 Erectile dysfunction N52.9 CPT Codes Post Residual Void - PVR CPT Code: 50083-Awgt Void Residual by ultrasound ([id number])
== END 2023-06-01 09:19 | disposition home or self-care (01) ==
PROVIDERS: PCP Internal Medicine; Visit Provider Urology
DX: N32.0 Bladder-neck obstruction (principal); N52.9 Male erectile dysfunction, unspecified
CPT/HCPCS: 99213

== ENCOUNTER → 2023-06-01 08:20 | Outpatient (BNVA) | payer MEDICARE, SELFPAY | PROVIDERS: PCP Internal Medicine; Visit Provider Urology | DX: N32.0 Bladder-neck obstruction (principal); N52.9 Male erectile dysfunction, unspecified | CPT/HCPCS: 51798; 99212 ==

== ENCOUNTER 2023-09-03 10:07 | Outpatient (AMB) | payer MEDICARE, SELFPAY ==
--- NOTE | 2023-09-03 10:15 | A.OFFVIS_ITS ---
Vital Signs 09/03/23 10:25 Height 5 ft 7 in Weight 185 lb BMI 29.0 Intake Visit Reasons: ov-Lt knee pain Intake Note: Erasto is a 73 year old male who presents today with a cane for a follow up of his left knee pain. He was given an injection on 08/13/21 . Patient reports having pain with gait initiation and ambulation. Had relief with his last injection. He would like to receive an injection today. He expresses right ankle pain. Allergies morphine [MORPHINE] Allergy (Mild, Verified 09/03/23 10:24) CONSTIPATION sulfamethoxazole [From Bactrim] Allergy (Unknown, Verified 09/03/23 10:24) Unknown trimethoprim [From Bactrim] Allergy (Unknown, Verified 09/03/23 10:24) Unknown diclofenac Adverse Reaction (Intermediate, Verified 09/03/23 10:24) worsening renal function, hyperkalemia HPI HPI ov-Lt knee pain: Details: Erasto is a 73 year old male who presents today with a cane for a follow up of his left knee pain. He was given an injection on 08/13/21 . Patient reports having pain with gait initiation and ambulation. Had relief with his last injection. He would like to receive an injection today. He expresses right ankle pain. [facility] Medical History Chronic kidney disease Kidney disease HTN (hypertension) Other hydronephrosis Poor urinary stream Hyponatremia High cholesterol Surgical History History of prostate surgery S/P foot surgery, right History of right hip replacement Family History Father Alzheimer's dementia Mother Heart attack HTN (hypertension) [facility] Alcohol intake: current Alcohol intake frequency: a few times a week Alcohol type: beer Patient Tobacco Use Status: Current someday Tobacco user Tobacco use type: Cigar e-Cigarette/Vaping Use: Never Used Current occupational status: retired Current occupation: right handed Cognitive needs: No Hearing needs: No Vision needs: No Physical Exam Vital Signs: BMI result Body Mass Index 29.0 Extrem Other: Left knee with mild effusion and ttp over medial tibial plateau Right midfoot s/p prior surgery with ttp over dorsal and medial navicular with no effusion Office Procedures Joint Injection/Drain Joint Injection/Drain Details: Injected 1 mL of Decadron and 3 mL 1% lidocaine and 3 mL of 0.25% Marcaine. Site was prepped using aseptic technique. Patient tolerated the procedure well. 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 He states fusion but radiographs suggest otherwise. Referral to Dr Hinds Orders: Orders XR ankle RT min 3V Today M25.579 - Pain in unspecified ankle and joints of unspecified foot Referrals Orthopedics Referral M19.071 - Primary osteoarthritis, right ankle and foot
[2023-09-03 10:25] VITALS: BMI 29.0
== END 2023-09-03 11:15 | disposition home or self-care (01) ==
LOC: HO.HOS 10:08
PROVIDERS: PCP Internal Medicine; Visit Provider Orthopaedic Surgery
DX: M25.462 Effusion, left knee (principal); M19.071 Primary osteoarthritis, right ankle and foot
CPT/HCPCS: 20610; 99213

== ENCOUNTER 2023-09-03 10:08 | Outpatient (REF) | payer MEDICARE, SELFPAY ==
--- NOTE | ~2023-09-03 | XR_ITS ---
EXAMINATION: XR ANKLE, RIGHT CLINICAL INFORMATION: Pain COMPARISON: None available. TECHNIQUE: AP, lateral, and mortise views of the right ankle. FINDINGS: Bones have normal alignment at the right ankle. Small osteophytes of the talocrural joint. A subchondral cyst of the medial talar dome measures up to 0.8 cm and is consistent with sequela of old osteochondral injury. Well-corticated ossicles project distal to the malleoli. No acute fractures. The smooth mild cortical thickening of the posterior malleolus is consistent with old healed malleolar fracture. There is dorsal osteophyte formation at the talonavicular joint. The navicular-cuneiform articulations are not well seen on these views focused on the ankle. There appears to be osseous fusion between the navicular cuneiforms. There are osteophytes at the suboptimally evaluated Lisfranc joint, including prominent osteophytes and subchondral cysts of the first tarsometatarsal joint. There are small calcaneal enthesophytes at sites of attachment of the Achilles tendon and plantar aponeurosis. XR/XR ankle RT min 3V IMPRESSION: * Mild osteoarthritis of the right ankle. * The subchondral cystic lucency of the medial talar dome is consistent with sequela of remote osteochondral injury. * Moderate osteoarthritis of the talonavicular joint. * There are osteoarthritic changes of the suboptimally evaluated Lisfranc joint, including prominent osteophytes and small subchondral cysts of the first tarsometatarsal joint.
== END 2023-09-03 10:09 | disposition home or self-care (01) ==
LOC: HO.HOSX 10:08
PROVIDERS: PCP Internal Medicine; Visit Provider Orthopaedic Surgery
DX: M25.562 Pain in left knee (principal); M25.462 Effusion, left knee; M19.071 Primary osteoarthritis, right ankle and foot
CPT/HCPCS: 20610; 73610; 99212; J0665; J1100

== ENCOUNTER 2023-11-20 06:54 | Outpatient (REF) | payer MEDICARE, SELFPAY ==
[2023-11-20 10:10] LABS: MANUAL DIFF FLAG NO
[2023-11-20 10:16] LABS: Appearance Urine Clear; Color Urine Yellow; Glucose Urine UA Negative (Negative); Leukocyte Esterase Urine Negative (Negative); Nitrite Urine Negative (Negative); PH 5.5 (5.0-9.0); Urine Blood Negative (Negative); Urine Ketones Trace mg/dL (Negative); Urine Protein Trace mg/dL (Neg-Trace)
[2023-11-20 10:22] LABS: Bacteria Urine None Seen (None Seen); Basophils Percent Auto 0.6 % (0-2); Eosinophils Absolute Auto 0.4 X10*3/uL (0.0-0.4); Eosinophils Percent Auto 5.3 % (0-4); Hemoglobin 11.4 g/dl (14.0-18.0); Hyaline Casts Urine 0-2 /LPF (0-2); Imm Gran Abs Auto 0.03 X10*3/uL (0.00-0.03); Imm Gran Pct Auto 0.4 % (0.0-0.4); Lymphocytes Absolute Auto 1.8 X10*3/uL (1.2-4.9); Lymphocytes Percent Auto 25.8 % (20-40); Mean Corpuscular HGB Conc 34.5 g/dl (31.0-36.0); Mean Corpuscular Hemoglobin 32.4 pg (27.0-33.0); Mean Corpuscular Volume 93.8 fL (80.0-98.0); Mean Platelet Volume 9.3 fL (9.4-12.4); Monocytes Absolute Auto 0.8 X10*3/uL (0.1-1.2); Monocytes Percent Auto 12.2 % (2-11); Neutrophils Absolute Auto 3.8 x10*3/uL (2.0-8.3); Neutrophils Percent Auto 55.7 % (45-73); Platelet Count 234 X10*3/uL (160-400); RBC Urine 0-2 /HPF (0-2); Red Blood Count 3.52 X10*6/uL (4.60-5.80); Red Cell Distribution Width 13.3 % (11.0-16.0); Squamous Epithelial Cell Urine 0-2 /HPF (0-2); WBC Urine 0-5 /HPF (0-5); White Blood Count 6.8 X10*3/uL (4.8-10.8)
[2023-11-20 10:59] LABS: Creatinine Urine 140.15 mg/dL
[2023-11-20 11:02] LABS: Parathyroid Hormone Intact 57.4 pg/mL (8.7-77.1)
[2023-11-20 11:15] LABS: Albumin Level 4.6 g/dL (3.5-5.0); Anion Gap 18 (12-20); Blood Urea Nitrogen 16 mg/dL (9-16); Calcium 9.6 mg/dL (8.4-10.2); Carbon Dioxide 23 mmol/L (22-29); Chloride 95 mmol/L (96-108); Estimated Glomerular Filt Rate 40; Glucose Random 90 mg/dL (60-115); Magnesium 1.5 mg/dL (1.6-2.6); Phosphorus 2.8 mg/dL (2.7-4.5); Potassium 4.8 mmol/L (3.3-5.1); Sodium 131 mmol/L (135-145)
[2023-11-20 11:53] LABS: Uric Acid 8.4 mg/dL (3.4-7.0)
[2023-11-23 17:04] LABS: VITAMIN D (1,25 OH) D3 10 pg/mL; Vit D (1,25-Dihydroxy) Total 10 pg/mL (18-72); Vitamin D (1,25 OH) D2 <8 pg/mL
== END 2023-11-20 06:55 | disposition home or self-care (01) ==
LOC: HO.HMGCLDS 06:54
PROVIDERS: PCP Nurse Practitioner Family; Referring Provider Internal Medicine Nephrology; Visit Provider Nurse Practitioner Family
DX: N18.32 Chronic kidney disease, stage 3b (principal)
CPT/HCPCS: 36415; 80048; 81001; 82040; 82043; 82570; 82652; 83735; 83970; 84100; 84550; 85025

== ENCOUNTER 2023-12-31 06:39 | Outpatient (REF) | payer MEDICARE, SELFPAY ==
[2023-12-31 11:28] LABS: Prostate Specific Antigen 3.87 ng/mL (<0.05-4.0)
== END 2023-12-31 06:40 | disposition home or self-care (01) ==
LOC: HO.HMGCLDS 06:39
PROVIDERS: PCP Internal Medicine; Visit Provider Urology
DX: N32.0 Bladder-neck obstruction (principal); Z12.5 Encounter for screening for malignant neoplasm of prostate
CPT/HCPCS: 36415; 84153

== ENCOUNTER 2024-01-04 14:18 | Outpatient (AMB) | payer MEDICARE, SELFPAY ==
--- NOTE | 2024-01-04 14:15 | A.OFFVIS_ITS ---
Intake Visit Reasons: 6M Follow Up-PSA(set) Intake Note: Patient is present for 6m f/u PSA Urology Medication:finasteride, tadalafil Antibiotic Allergy:none Blood Thinner:none Trim Installer Required: No Allergies morphine [MORPHINE] Allergy (Mild, Verified 01/04/24 14:16) CONSTIPATION sulfamethoxazole [From Bactrim] Allergy (Unknown, Verified 01/04/24 14:16) Unknown trimethoprim [From Bactrim] Allergy (Unknown, Verified 01/04/24 14:16) Unknown diclofenac Adverse Reaction (Intermediate, Verified 01/04/24 14:16) worsening renal function, hyperkalemia Medication List - Last Reconciled 01/04/24 by Chico Cooper MD amlodipine 10 mg PO DAILY atorvastatin 20 mg PO DAILY famotidine (Acid-Pep) 20 mg PO BEDTIME PRN finasteride 5 mg PO DAILY 90 days folic acid 1 mg PO DAILY lisinopril 40 mg PO DAILY metoprolol succinate ER 50 mg PO DAILY tadalafil 20 mg PO DAILY HPI Comments Details: Erasto is a pleasant male. He is a patient of Dr. Whyte, He is seen for the following urologic conditions - BPH - prior hydronephrosis - manage through Dr. Valencia Telemedicine Evaluation 15 min Consultation [facility] [facility] [employer] Moni Video attempted 6m f/u Slight rise in PSA Creatinine remains stable 1.7 Six-month PVR 20 cc Continues with effective emptying PSA 12/03 2.4, 12/04 3.8 Continues on finasteride 5 mg daily with tadalafil 20 mg daily Lower Urinary Tract Symptoms: Current visit is for further evaluation of, lower urinary tract symptoms, predominate obstructive symptoms. Current treatment includes medication, alpha gudelia, tamsulosin - since 2007 - added finasteride 07/30 - 08/30 stent with prostate procedure - 07/03 stent removal. - 12/03 combination finasteride and tadalafil g daily Prior treatments include 08/30 prostate procedure, stents 09/29 Lasix renogram. Right 58%, left 42%, reported T 1/2 20 minutes left. States good perfusion with clearance. No obvious obstruction.. - 05/02 Lasix renogram. Prompt excretion bilateral, T half less than 5 minutes bilateral. Prostate Symptom Score 07/02 , Mild (0-8), Bother 3. Symptoms include 07/02 , incomplete emptying, weak stream, and are stable. PSA 07/30 Cr 1.78 08/30 Cr 1.9 01/30 Cr 2.2 07/03 Cr 1.6, 10/31 Cr 1.7, 05/02 2.1, 10/02 1.8, 12/03 1.6, 02/03 1.5 Treatment plan - continue PVR PFSH Medical History Chronic kidney disease Kidney disease HTN (hypertension) Other hydronephrosis Poor urinary stream Hyponatremia High cholesterol Surgical History History of prostate surgery S/P foot surgery, right History of right hip replacement Family History Father Alzheimer's dementia Mother Heart attack HTN (hypertension) Social History Housing: [facility] Alcohol intake: current Alcohol intake frequency: a few times a week Alcohol type: beer Patient Tobacco Use Status: Current someday Tobacco user Tobacco use type: Cigar e-Cigarette/Vaping Use: Never Used Current occupational status: retired Current occupation: right handed Cognitive needs: No Hearing needs: No Vision needs: No Review of Systems Const All systems reviewed & are unremarkable except as noted in HPI and below Reports no additional complaints Resp Reports no additional complaints GI Reports no additional complaints Reports as per HPI Musc Reports no additional complaints Physical Exam Telemedicine evaluation Appropriate responses Regular breathing rate and rhythm HEENT Head: Yes normal to inspection Ears: hearing grossly normal bilaterally Eyes General: appearance normal, both eyes and all related structures Neck Neck: Yes normal visual inspection Chest Chest palpation & inspection: normal inspection of the chest Resp Effort & Inspection: normal respiratory effort and able to speak in complete sentences Telehealth Telehealth [facility] Location of provider rendering services: practice address Location of patient: address on file Patient Identification confirmed using: Name, : Yes Telehealth method: video Patient verbally consented to treatment: Yes Patient verbally consented to billing insurance company: Yes Patient informed of any privacy concerns related to visit: Yes Minutes spent on Phone/Video with Pt.: 15 Assessment & Plan Assessment & Plan (1) Hydronephrosis: Code(s): N13.30 - Unspecified hydronephrosis Category: Medical (2) Bladder outlet obstruction: Comment: s/p TURP 2019 Code(s): N32.0 - Bladder-neck obstruction Category: Medical (3) Erectile dysfunction: Code(s): N52.9 - Male erectile dysfunction, unspecified Category: Medical Plan Six month follow-up PSA office Orders: Orders PSA,Total (Free>4and<10) 6 Months N32.0 - Bladder-neck obstruction Patient Instructions: Imaging studies, laboratory and physical exam results were discussed and reviewed in detail. No major barriers to patient understanding were identified. An opportunity to ask questions regarding the treatment plan was provided. All questions were answered. The patient expressed understanding and agreement with the above treatment plan. The patient is aware they should contact our office by phone for worsening of their current condition or the appearance of new urologic symptoms. Compliance is encouraged with any medications and followup testing that is ordered. It is a privilege to participate in the urologic care of your patient. If you have any questions or concerns regarding treatment for the above conditions, or other urologic issues, please do not hesitate to contact me. The office telephone contact is [phone]. This note is constructed using voice recognition software. While every effort has been made to ensure accuracy training and development project leader errors may have been included. Yours sincerely, Dr Chico Cooper MD, [facility] - Urology Providers of Expert, Compassionate Care for the Genitourinary System Coding Level of Care Code Tele Est Pt Level 3 (51906) Diagnoses Hydronephrosis N13.30 Bladder outlet obstruction N32.0 Erectile dysfunction N52.9
== END 2024-01-04 15:02 | disposition home or self-care (01) ==
LOC: HO.HUSH 14:18
PROVIDERS: PCP Internal Medicine; Visit Provider Urology
DX: N13.30 Unspecified hydronephrosis (principal); N32.0 Bladder-neck obstruction; N52.9 Male erectile dysfunction, unspecified
CPT/HCPCS: 99213

== ENCOUNTER → 2024-01-04 14:18 | Outpatient (BNVA) | payer MEDICARE, SELFPAY | PROVIDERS: PCP Internal Medicine; Visit Provider Urology ==

== ENCOUNTER 2024-02-04 10:21 | Outpatient (AMB) | payer MEDICARE, SELFPAY ==
[2024-02-04 10:29] VITALS: BP 120/60; PULSE 80; O2SAT 97; BMI 29.1
--- NOTE | 2024-02-04 10:29 | A.OFFPC_ITS ---
Vital Signs 02/04/24 10:29 Height 5 ft 7 in Weight 186 lb BMI 29.1 BP 120/60 Blood Pressure Location Rt brachial Position Sitting Pulse 80 Pulse Source Pulse Oximeter Pulse Oximetry (%) 97 Intake Visit Reasons: PE Intake Note: pt is here for physical exam Logistics Research Engineer Required: No Accompanied by: Self / Same As Patient Allergies morphine [MORPHINE] Allergy (Mild, Verified 02/04/24 11:01) CONSTIPATION sulfamethoxazole [From Bactrim] Allergy (Unknown, Verified 02/04/24 11:01) Unknown trimethoprim [From Bactrim] Allergy (Unknown, Verified 02/04/24 11:01) Unknown diclofenac Adverse Reaction (Intermediate, Verified 02/04/24 11:01) worsening renal function, hyperkalemia Medication List - Last Reconciled 02/04/24 by TANIKA Sparks amlodipine 10 mg PO DAILY atorvastatin 20 mg PO DAILY famotidine (Acid-Pep) 20 mg PO BEDTIME PRN finasteride 5 mg PO DAILY 90 days folic acid 1 mg PO DAILY lisinopril 40 mg PO DAILY metoprolol succinate ER 50 mg PO DAILY tadalafil 20 mg PO DAILY Tobacco use date assessed: 05/28/23 Fall risk assessment: No Falls in past year Last assessed Fall Risk: 02/04/24 Dental Screening Dental Screen Date: 05/28/23 HPI PE HPI Details Pt is here for a PE. Will order labs. Colon screen is up to date. PSA is up to date. Denies dribbling with urination, weak stream, and frequent nocturia. Pt follows up with nephrology and urology. Refuses all vaccines. Pt reports feeling well [facility] Medical History Chronic kidney disease Kidney disease HTN (hypertension) Other hydronephrosis Poor urinary stream Hyponatremia High cholesterol Surgical History History of prostate surgery S/P foot surgery, right History of right hip replacement Family History Father Alzheimer's dementia Mother Heart attack HTN (hypertension) Social History Housing: Condominium Alcohol intake: current Alcohol intake frequency: a few times a week Alcohol type: beer Patient Tobacco Use Status: Current someday Tobacco user Tobacco use type: Cigar e-Cigarette/Vaping Use: Never Used Current occupational status: retired Current occupation: right handed Cognitive needs: No Hearing needs: No Vision needs: No Questionnaire PHQ-9 Over the last 2 weeks, how often have you been bothered by any of the following problems? 1. Little interest or pleasure in doing things: not at all 2. Feeling down, depressed, or hopeless: not at all 3. Trouble falling or staying asleep, or sleeping too much: not at all 4. Feeling tired or having little energy: not at all 5. Poor appetite or overeating: not at all 6. Feeling bad about yourself - or that you are a failure or have let yourself or your family down: not at all 7. Trouble concentrating on things, such as reading the newspaper or watching television: not at all 8. Moving or speaking so slowly that other people could have noticed. Or the opposite - being so fidgety or restless that you have been moving around a lot more than usual: not at all 9. Thoughts that you would be better off or of hurting yourself in some way: not at all Total score: 0 Depression Screening Interpretation: Negative Depression Screening Done: Yes 19170 - PHQ-9 Billing: Yes Source: Developed by Drs. Mark Paulino, Fernanda Taylor, Andrés Salcedo and colleagues, with an educational artem from [employer]. Thrive Questionnaire Date Thrive assessed: 02/04/24 I am a: Patient What is your living situation today?: I have a steady place to live Within the past 12 months, did the food you bought not last and you didn't have the money to get more?: Never true Within the past 12 months, did you worry whether your food would run out before you got money to buy more?: Never true Do you have trouble paying for medicines?: No Do you have trouble getting transportation to medical appointments?: No Do you have trouble paying your heating and electricity bill?: No Do you have trouble taking care of your child, family member or friend?: No Do you have trouble with day-to-day activities such as bathing, preparing meals, shopping, managing finances, etc.?: No Are you interested in more education?: No Please select the resources that you would like help with: None Currently or been in a relationship where the following occur: No concerns reported THRIVE Score: 0 AUDIT C Alcohol Use Questionnaire (AUDIT-C) 1. How often do you have a drink containing alcohol?: 4 or more times a week 2. How many drinks containing alcohol do you have on a typical day when you are drinking?: 3 or 4 3. How often do you have six or more drinks on one occasion?: Less than monthly Total Score: 6 Score Reviewed/Action Taken: Yes VALENTINO-7 AMB Questionnaire VALENTINO-7 Date VALENTINO - 7 assessed: 02/04/24 Feeling nervous, anxious, or on edge: 0 = Not at all Not being able to stop or control worryin = Not at all Worrying too much about different things: 0 = Not at all Trouble relaxin = Not at all Being so restless that it is hard to sit still: 0 = Not at all Becoming easily annoyed or irritable: 0 = Not at all Feeling afraid as if something awful might happen: 0 = Not at all Total VALENTINO-7 score (0-4 normal; 5-9 mild; 10-14 moderate; 15-21 severe): 0 Source: Developed by Drs. Mark Paulino, Fernanda Taylor, Andrés Salcedo and colleagues, with an educational artem from [employer]. VALENTINO-7 Assessment Billing VALENTINO-7 Assessment Tool: VALENTINO-7 Assessment 11753 Review of Systems Const Denies chills and Denies fever(s) Eyes Denies blurry vision ENT Denies vertigo, Denies dizziness and Denies sore throat Card Denies chest pain at rest, Denies chest pain with activity, Denies diaphoresis, Denies dyspnea and Denies dyspnea on exertion Resp Denies cough, Denies dyspnea, Denies dyspnea on exertion and Denies wheezing GI Denies abdominal pain, Denies melena, Denies hematochezia, Denies constipation, Denies diarrhea and Denies loose stools Denies hematuria Musc Denies numbness and Denies tingling Skin/Breast Denies lesions Neuro Denies vertigo, Denies dizziness, Denies numbness and Denies tingling Psych Denies anxiety, Denies depression, Denies homicidal ideation, Denies suicidal ideation and Denies other (substance abuse) Aller/Immun Denies wheezing Physical exam (Primary Care) Vital Signs: Last Vital Signs Pulse 80 02/04/24 10:29 BP 120/60 02/04/24 10:29 Pulse Ox 97 02/04/24 10:29 BMI result Body Mass Index 29.1 Tobacco/Smoking Status: Tobacco use Status Tobacco use date assessed 05/28/23 02/04/24 10:29 Patient Tobacco Use Status Current someday Tobacco 02/04/24 10:29 Tobacco use type Cigar 02/04/24 10:29 e-Cigarette/Vaping Use Never Used 02/04/24 10:29 PHQ-9: PHQ-9 Score PHQ-9: Total score 0 02/04/24 10:58 Depression Screening Interpretation: Negative Thrive Assessment: Date of Thrive Assessment Date Thrive assessed 02/04/24 02/04/24 10:33 Currently or been in a relationship where the following occur: No concerns reported Const General: cooperative Nutritional Appearance: well nourished Orientation/consciousness: patient oriented x3 HENMT Head: Yes normal to inspection, Yes normocephalic and Yes atraumatic Ears: TM's normal bilaterally Eyes General: appearance normal, both eyes and all related structures Alignment and Position: alignment normal and position normal Neck Neck: Yes normal visual inspection, Yes no lymphadenopathy and Yes supple Resp Effort & Inspection: normal respiratory effort Auscultation: clear to auscultation bilaterally Cardio Rate: regular rate Rhythm: regular rhythm Heart sounds: S1 normal heart sound present, S2 normal heart sound present and no murmurs GI Palpation (GI): Soft to palpation and nontender Auscultation: normal bowel sounds Male General Exam: Yes normal external exam Penis: normal penis Scrotum: scrotum normal, testes descended bilaterally and no inguinal hernias Testes: no testicular mass Skin Rashes: no rashes Neuro General: patient oriented x3, moves all extremities, no focal motor deficits and deep tendon reflexes 2+ bilaterally Romberg Test: Negative Psych Appearance: grossly normal Mental Status: mental status grossly normal Speech and movement: Normal speech and movement present Affect: normal affect Attitude: cooperative Thought process: Normal thought process present Thought content: Normal thought content present Insight: Good insight present (Psych) Judgement: Good judgement present (Psych) Assessment and Plan Assessment & Plan (1) Elevated uric acid in blood: Code(s): E79.0 - Hyperuricemia without signs of inflammatory arthritis and tophaceous disease Plan: recheck levels (2) Physical exam: Code(s): Z00.00 - Encounter for general adult medical examination without abnormal findings Plan: Labs ordered Plan The patient agreed to the use of a medical doctor md/medical director for this encounter. Scribed for TANIKA David by Aleena Torres medical doctor md/medical director, on 02/04/2024 at 10:55 EST. Orders: Orders Uric Acid Today E79.0 - Hyperuricemia without signs of inflammatory arthritis and tophaceous disease Coding Level of Care Code Est Pt Prev Care >65y(15530) Diagnoses Elevated uric acid in blood E79.0 Physical exam Z00.00 Additional Codes VALENTINO-7 Assessment Billing - VALENTINO-7 Assessment Tool: VALENTINO-7 Assessment 35832 ([id number])
== END 2024-02-04 11:20 | disposition home or self-care (01) ==
PROVIDERS: PCP Internal Medicine; Visit Provider Nurse Practitioner Family
DX: E79.0 Hyperuricemia without signs of inflammatory arthritis and tophaceous disease (principal); Z00.00 Encounter for general adult medical examination without abnormal findings

== ENCOUNTER → 2024-02-04 10:21 | Outpatient (BNVA) | payer MEDICARE, SELFPAY | PROVIDERS: PCP Internal Medicine; Visit Provider Nurse Practitioner Family | DX: Z00.00 Encounter for general adult medical examination without abnormal findings (principal); E79.0 Hyperuricemia without signs of inflammatory arthritis and tophaceous disease | CPT/HCPCS: 96127 ==

== ENCOUNTER 2024-05-12 06:41 | Outpatient (REF) | payer MEDICARE, SELFPAY ==
[2024-05-12 09:59] LABS: MANUAL DIFF FLAG NO
[2024-05-12 10:02] LABS: Basophils Percent Auto 0.6 % (0-2); Eosinophils Absolute Auto 0.4 X10*3/uL (0.0-0.4); Eosinophils Percent Auto 6.1 % (0-4); Hematocrit 32.8 % (42.0-52.0); Imm Gran Abs Auto 0.02 X10*3/uL (0.00-0.03); Imm Gran Pct Auto 0.3 % (0.0-0.4); Lymphocytes Absolute Auto 2.3 X10*3/uL (1.2-4.9); Lymphocytes Percent Auto 34.5 % (20-40); Mean Corpuscular HGB Conc 33.5 g/dl (31.0-36.0); Mean Corpuscular Hemoglobin 32.7 pg (27.0-33.0); Mean Corpuscular Volume 97.6 fL (80.0-98.0); Mean Platelet Volume 9.6 fL (9.4-12.4); Monocytes Absolute Auto 0.8 X10*3/uL (0.1-1.2); Monocytes Percent Auto 12.5 % (2-11); Neutrophils Absolute Auto 3.1 x10*3/uL (2.0-8.3); Platelet Count 244 X10*3/uL (160-400); Red Blood Count 3.36 X10*6/uL (4.60-5.80); Red Cell Distribution Width 12.7 % (11.0-16.0); White Blood Count 6.7 X10*3/uL (4.8-10.8)
[2024-05-12 10:07] LABS: Appearance Urine Clear; Color Urine Yellow; Glucose Urine UA Negative (Negative); Leukocyte Esterase Urine Negative (Negative); Nitrite Urine Negative (Negative); PH 5.5 (5.0-9.0); Urine Blood Negative (Negative); Urine Ketones Negative (Negative); Urine Protein Trace mg/dL (Neg-Trace)
[2024-05-12 10:24] LABS: Alanine Aminotransferase 28 U/L (0-40); Albumin Level 4.3 g/dL (3.5-5.0); Alkaline Phosphatase 63 U/L (39-117); Anion Gap 15 (12-20); Aspartate Amino Transferase 34 U/L (5-37); Bilirubin Total 0.8 mg/dL (0.0-1.0); Blood Urea Nitrogen 19 mg/dL (9-16); Calcium 9.3 mg/dL (8.4-10.2); Carbon Dioxide 23 mmol/L (22-29); Chloride 102 mmol/L (96-108); Cholesterol 175 mg/dL (<200); Estimated Glomerular Filt Rate 36; Glucose Fasting 96 mg/dL (60-99); HDL Cholesterol 121 mg/dL (>40); LDL Cholesterol Calculated 44 mg/dL (<100); Potassium 5.2 mmol/L (3.3-5.1); Sodium 135 mmol/L (135-145); Total Protein 7.6 g/dL (6.5-8.0); Triglycerides 53 mg/dL (<150)
[2024-05-12 10:29] LABS: Uric Acid 8.9 mg/dL (3.4-7.0)
[2024-05-12 10:37] LABS: TSH reflex Free T4 1.26 uIU/mL (0.32-4.0)
== END 2024-05-12 06:42 | disposition home or self-care (01) ==
LOC: HO.HMGCLDS 06:41
PROVIDERS: PCP Nurse Practitioner Family; Visit Provider Nurse Practitioner Family
DX: I10 Essential (primary) hypertension (principal); E79.0 Hyperuricemia without signs of inflammatory arthritis and tophaceous disease
CPT/HCPCS: 36415; 80053; 80061; 81003; 84443; 84550; 85025

== ENCOUNTER 2024-05-19 06:29 | Outpatient (REF) | payer MEDICARE, SELFPAY ==
[2024-05-19 10:55] LABS: Anion Gap 13 (12-20); Carbon Dioxide 22 mmol/L (22-29); Chloride 102 mmol/L (96-108); Potassium 4.6 mmol/L (3.3-5.1); Sodium 132 mmol/L (135-145)
== END 2024-05-19 06:30 | disposition home or self-care (01) ==
LOC: HO.HMGCLDS 06:29
PROVIDERS: PCP Nurse Practitioner Family; Visit Provider Nurse Practitioner Family
DX: E87.5 Hyperkalemia (principal)
CPT/HCPCS: 36415; 80051

== ENCOUNTER 2024-07-04 07:40 | Outpatient (REF) | payer MEDICARE, SELFPAY ==
--- OUTSIDE RECORDS SUMMARY | 2024-07-04 07:43 | XMS_ITS | Encounter Summary ---
Author Organization [facility] Address [address] [place] [address] Phone Care Team Providers Care Communication Instructor Name Role Phone Lesly Whyte MD Primary Care Provider [phone] Encounter Details Date Type Department Care Team (Late st Contact Info) Description 11/21/2023 Documentation Only [facility] [address] [place] [address] Kelley Oakes [place] [address] [place] [phone] Social History Tobacco Use Types Packs/Day Years Used Date Smoking Tobacco: Some Days Cigars Sex and Gender Information Value Date Recorded Sex Assigned at Not on file Legal Sex Male 4:32 PM EST Gender Identity Not on file Sexual Orientation Not on file documented as of this encounter Plan of Treatment Upcoming Encounters Date Type Department Care Team (Late st Contact Info) Description 07/09/2024 10:40 AM EST Office Visit [facility] [address] [place] [phone] Lalito Novak MD [address] [place] [address] [place] [phone] documented as of this encounter Visit Diagnoses Not on filedocumented in this encounter Care Teams Communication Instructor Relationship Specialty Start Date End Date Lesly Whyte MD [address] [place] [address] PCP - General Internal Medicine 07/15/20 documented as of this encounter
--- OUTSIDE RECORDS SUMMARY | 2024-07-04 07:43 | XMS_ITS | Clinical Summary ---
Author Organization [facility] [place], Address [address] [place] [address] [place] [address] Phone Care Team Providers Care Metal Numerical Control Programmer Name Role Phone Lesly Whyte MD Primary Care Provider [phone] Allergies Active Allergy Reactions Criticality Noted Date Comments Aspirin Other (see comments) 05/12/2019 Patient states gets upset stomach Morphine Other (see comments) 05/12/2019 Patient gets constipation Torsemide 04/26/2021 Medications atorvastatin (LIPITOR) 20 MG tablet Take 20 mg by mouth at bed time Active finasteride (PROSCAR) 5 MG tablet Take 5 mg by mouth 1 (one) time each day Active vardenafil (LEVITRA) 20 MG tablet Take 20 mg by mouth every 3rd (third) day Active Diclofenac Sodium 2.5 % cream Apply 1 Dose topically in the morning and 1 Dose in the evening. 120 g 3 4 Active lisinopril 20 MG tablet TAKE 2 TABLETS BY MOUTH ONCE DAILY 200 tablet 2 4 Active amLODIPine (NORVASC) 10 MG tablet TAKE 1 TABLET BY MOUTH DAILY 100 tablet 2 4 Active folic acid (FOLVITE) 1 MG tablet TAKE 1 TABLET BY MOUTH DAILY 100 tablet 2 4 Active metoprolol succinate XL (TOPROL XL) 50 MG 24 hr tablet TAKE 1 TABLET BY MOUTH AT BEDTIME (DO NOT CRUSH OR CHEW) 100 tablet 2 4 Active Active Problems Problem Noted Date Diagnosed Date Stage 3b chronic kidney disease 07/15/2020 Essential hypertension 05/12/2019 Anemia 05/12/2019 Hyperlipidemia 05/12/2019 Vesicoureteric reflux 05/12/2019 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 Hydronephrosis Obstruction of urinary bladder outlet Encounters Date Type Department Care Team Description 05/13/2024 Refill [facility] [address] [place] [address] Lalito Novak MD 05/12/2024 Refill [facility] [address] [place] [address] Lalito Novak MD 04/23/2024 9:30 AM EST Office Visit [facility] [address] [place] [address] Lalito Novak MD Stage 3b chronic kidney disease (HCC) (Primary Dx) from Last 3 Months Immunizations Name Administration Dates Next Due Pfizer SARS-COV-2 09/23/2020,09/02/2020 Family History Medical History Relation Comments Dementia Father Heart attack Mother Hypertension Mother Stroke Paternal Grandfather Relation Status Comments Father Mother Paternal Grandfather Social History Tobacco Use Types Packs/Day Years Used Date Smoking Tobacco: Some Days Cigars Sex and Gender Information Value Date Recorded Sex Assigned at Not on file Legal Sex Male 4:32 PM EST Gender Identity Not on file Sexual Orientation Not on file Last Filed Vital Signs Vital Sign Reading Time Taken Comments Blood Pressure 136/66 05/19/2019 10:47 AM EST Pulse - - Temperature - - Respiratory Rate - - Oxygen Saturation - - Inhaled Oxygen Concentration - - Weight 86.2 kg (190 lb) 05/19/2019 10:47 AM EST Height 175.3 cm (5' 9 ) 01/27/2019 12:00 PM EDT Body Mass Index 28.06 01/27/2019 12:00 PM EDT Plan of Treatment Upcoming Encounters Date Type Department Care Team (Late st Contact Info) Description 07/09/2024 10:40 AM EST Office Visit [facility] [address] [place] [address] Lalito Novak MD [address] [place] [address] [place] [address] Health Maintenance Due Date Last Done Comments Pneumococcal Vaccine: 65+ Ye ars (1 of 2 - PCV) 1958 Colorectal Cancer Screening: Annual FOBT 2001 Colorectal Cancer Screening: Colonoscopy 2001 Colorectal Cancer Screening: Sigmoidoscopy 2001 Influenza Vaccine (#1) 2024 Hepatitis B Vaccine Aged Out No longe r eligible based on patient's age to complete this topic Insurance [facility] MEDICARE Care Teams Metal Numerical Control Programmer Relationship Specialty Start Date End Date Lesly Whyte MD [address] [place], [place] [id number] PCP - General Internal Medicine 07/15/20
--- OUTSIDE RECORDS SUMMARY | 2024-07-04 07:43 | XMS_ITS | Encounter Summary ---
Author Organization [facility] Address [address] [place] [address] Phone Care Team Providers Care Toy Designer Name Role Phone Lesly Whyte MD Primary Care Provider [phone] Reason for Visit * Reason Comments Med Refill Encounter Details Date Type Department Care Team (Late Contact Info) Description 12/02/2020 Refill [facility] [address] [place] [address] Prosper Valencia MD [address] [place] [address] [place] [address] Social History Tobacco Use Types Packs/Day Years [...] Visit [facility] [place], [address] [place] [phone] Lalito Novak MD [address] [place] [address] [place] [address] documented as of this encounter Visit Diagnoses Not on filedocumented in this encounter Care Teams Toy Designer Relationship Specialty Start Date End Date Lesly Whyte MD [address] [place] [address] PCP - General Internal Medicine 07/15/20 documented as of this encounter
--- OUTSIDE RECORDS SUMMARY | 2024-07-04 07:43 | XMS_ITS | Encounter Summary ---
Author Organization [facility] Address [address] [place] [address] Phone Care Team Providers Care Dietary Aid Name Role Phone Lesly Whyte MD Primary Care Provider [phone] Encounter Details Date Type Department Care Team (Late st Contact Info) Description 11/28/2023 Documentation Only [facility] [address] [place] [address] Kelley Oakes [place] [address] [place] [phone] Social History Tobacco Use Types Packs/Day Years [...] Visit [facility] [address] [place] [phone] Lalito Novak MD [address] [place] [address] [place] [phone] documented as of this encounter Visit Diagnoses Not on filedocumented in this encounter Care Teams Dietary Aid Relationship Specialty Start Date End Date Lesly Whyte MD [address] [place] [address] PCP - General Internal Medicine 07/15/20 documented as of this encounter
--- OUTSIDE RECORDS SUMMARY | 2024-07-04 07:43 | XMS_ITS | Encounter Summary ---
Author Organization [facility] Address [address] [place] [address] Phone Care Team Providers Care Shaving Machine Operator Name Role Phone Lesly Whyte MD Primary Care Provider [phone] Encounter Details Date Type Department Care Team (Late st Contact Info) Description 11/22/2023 Documentation Only [facility] [address] [place] [address] Kelley Oakes [place] [address] [place] [phone] Social History Tobacco Use Types Packs/Day Years [...] Visit [facility] [address] [place] [phone] Lalito Novak MD [address] [place] [address] [place] [phone] documented as of this encounter Visit Diagnoses Not on filedocumented in this encounter Care Teams Shaving Machine Operator Relationship Specialty Start Date End Date Lesly Whyte MD [address] [place] [address] PCP - General Internal Medicine 07/15/20 documented as of this encounter
[2024-07-04 10:17] LABS: Anion Gap 17 (12-20); Carbon Dioxide 22 mmol/L (22-29); Chloride 100 mmol/L (96-108); Potassium 4.7 mmol/L (3.3-5.1); Sodium 134 mmol/L (135-145)
[2024-07-04 10:52] LABS: PSA,Total (Free>4and<10) 5.41 ng/mL (0.00-4.00)
[2024-07-04 11:23] LABS: Osmolality, Serum 284 mosm/kg (281-305)
[2024-07-07 11:29] LABS: Free Prostate Spec Ag 1.1 ng/mL; Percent Free Prostate Spec Ag 22 % (calc) (>25); Prostate Specific Ag Total 5.1 ng/mL (< OR = 4.0)
== END 2024-07-04 07:41 | disposition home or self-care (01) ==
LOC: HO.HMGCLDS 07:40
PROVIDERS: PCP Nurse Practitioner Family; Referring Provider Urology; Visit Provider Nurse Practitioner Family
DX: E87.1 Hypo-osmolality and hyponatremia (principal); N32.0 Bladder-neck obstruction; Z12.5 Encounter for screening for malignant neoplasm of prostate
CPT/HCPCS: 36415; 80051; 83930; 84153; 84154

== ENCOUNTER 2024-07-08 10:09 | Outpatient (AMB) | payer MEDICARE, SELFPAY ==
--- NOTE | 2024-07-08 10:15 | MHC.OFFVIS ---
Intake Visit Reasons: 6m/PSA(set)Elevated Intake Note: Patient is present for 6M/PSA Urology Medication:FINASTERIDE,TADALAFIL Antibiotic Allergy:SULFA,BACTRIM Blood Thinner:NONE Cosmetology Educator Required: No Allergies morphine [MORPHINE] Allergy (Mild, Verified 07/08/24 10:16) CONSTIPATION sulfamethoxazole [From Bactrim] Allergy (Unknown, Verified 07/08/24 10:16) Unknown trimethoprim [From Bactrim] Allergy (Unknown, Verified 07/08/24 10:16) Unknown diclofenac Adverse Reaction (Intermediate, Verified 07/08/24 10:16) worsening renal function, hyperkalemia HPI Comments Details: Erasto is a pleasant male. He is a patient of Dr. Whyte, He is seen for the following urologic conditions - BPH - prior hydronephrosis - manage through Dr. Valencia 6m f/u PSA continued elevation to 5.1 Recommend prostate biopsy Creatinine remains stable 1.7 Six-month PVR 20 cc Continues with effective emptying PSA 12/03 2.4, 12/04 3.8, 07/08 5.1 F 22% Continues on finasteride 5 mg daily with tadalafil 20 mg daily Has upcoming trip [place] Lower Urinary Tract Symptoms: Current visit is for further evaluation of, lower urinary tract symptoms, predominate obstructive symptoms. Current treatment includes medication, alpha gudelia, tamsulosin - since 2007 - added finasteride 07/30 - 08/30 stent with prostate procedure - 07/03 stent removal. - 12/03 combination finasteride and tadalafil g daily Prior treatments include 08/30 prostate procedure, stents 09/29 Lasix renogram. Right 58%, left 42%, reported T 1/2 20 minutes left. States good perfusion with clearance. No obvious obstruction.. - 05/02 Lasix renogram. Prompt excretion bilateral, T half less than 5 minutes bilateral. Prostate Symptom Score 07/02 , Mild (0-8), Bother 3. Symptoms include 07/02 , incomplete emptying, weak stream, and are stable. PSA 07/30 Cr 1.78 08/30 Cr 1.9 01/30 Cr 2.2 07/03 Cr 1.6, 10/31 Cr 1.7, 05/02 2.1, 10/02 1.8, 12/03 1.6, 9/23 1.5 Treatment plan - continue PVR PFSH Medical History Chronic kidney disease Kidney disease HTN (hypertension) Other hydronephrosis Poor urinary stream Hyponatremia High cholesterol Surgical History History of prostate surgery S/P foot surgery, right History of right hip replacement Family History Father Alzheimer's dementia Mother Heart attack HTN (hypertension) Social [facility] Alcohol intake: current Alcohol intake frequency: a few times a week Alcohol type: beer Patient Tobacco Use Status: Current someday Tobacco user Tobacco use type: Cigar e-Cigarette/Vaping Use: Never Used Current occupational status: retired Current occupation: right handed Cognitive needs: No Hearing needs: No Vision needs: No Review of Systems Const Denies chills and Denies fever(s) Card Reports no additional complaints and Denies syncope Resp Denies cough GI Denies abdominal pain and Denies heartburn Reports as per HPI and Denies change in libido Neuro Denies syncope Psych Denies change in libido Endo Denies change in libido Physical Exam Const General: cooperative, healthy appearing, comfortable and no acute distress Orientation/consciousness: patient oriented x3 HEENT Face and sinus: Yes normal facial exam Mouth: moist mucous membranes Neck Neck: Yes normal visual inspection, Yes full ROM and Yes trachea midline Chest Chest palpation & inspection: normal inspection of the chest Resp Effort & Inspection: normal respiratory effort, able to speak in complete sentences and no respiratory distress GI Inspection: Yes normal to inspection Back/Spine/Pelvis Cervical Spine: normal cervical lordosis Thoracic/Lumbar Spine: thoracic and lumbar spine normal to inspection Skin General skin exam: no rashes or lesions noted Neuro General: patient oriented x3, gait normal, tone normal and moves all extremities Extrem General: Yes normal to inspection and Yes capillary refill normal Assessment & Plan Assessment & Plan (1) Bladder outlet obstruction: Comment: s/p TURP 2019 Code(s): N32.0 - Bladder-neck obstruction Category: Medical (2) Elevated PSA: Code(s): R97.20 - Elevated prostate specific antigen [PSA] Category: Medical Plan Risks and benefits regarding trans rectal ultrasound with prostate biopsy were discussed. Options of continued surveillance, no treatment and biopsy were offered. The risks include but are not limited to, urinary tract infection, sepsis, difficulty urinating, bleeding into the rectum or bladder that requires intervention and transfusion,and failure to diagnose prostate cancer. The patient understands the options and the risks involved. They wish to proceed. Printed information was provided to ensure he remains off anticoagulation for the appropriate length of time. He may require cardiology or PCP clearance. An antibiotic will be administered prior to, and following the procedure Medications: New levofloxacin take 1 tablet day before procedure, 1 tablet day of procedure and 1 tablet day after procedure 500 mg PO daily 3 days 3 tabs 0RF R97.20 - Elevated prostate specific antigen [PSA] Patient Instructions: This note is constructed using voice recognition software. While every effort has been made to ensure accuracy drawing in hand errors may have been included. Imaging studies, laboratory and physical exam results were discussed and reviewed in detail. No major barriers to patient understanding were identified. An opportunity to ask questions regarding the treatment plan was provided. All questions were answered. The patient expressed understanding and agreement with the above treatment plan. The patient is aware they should contact our office by phone for worsening of their current condition or the appearance of new urologic symptoms. Compliance is encouraged with any medications and followup testing that is ordered. It is a privilege to participate in the urologic care of your patient. If you have any questions or concerns regarding treatment for the above conditions, or other urologic issues, please do not hesitate to contact me. The office telephone contact is [phone]. Sincerely, Dr Chico Cooper MD, [facility] - Urology Compassionate Specialist Care for the Genitourinary System Coding Level of Care Code Est Pt Level 4 (82659) Diagnoses Bladder outlet obstruction N32.0 Elevated PSA R97.20
--- OUTSIDE RECORDS SUMMARY | 2024-07-08 11:54 | XMS_ITS | Encounter Summary ---
Author Organization [facility] Address [address] [place] [address] Phone Care Team Providers Care Director Employment Name Role Phone Lesly Whyte MD Primary Care Provider [phone] Encounter Details Date Type Department Care Team (Late st Contact Info) Description 11/28/2023 Documentation Only [facility] [address] [place] [address] Kelley Oakes [place] [address] [place] [phone] Social History Tobacco Use Types Packs/Day Years [...] Visit [facility] [address] [place] [phone] Lalito Novak MD [address] [place] [address] [place] [phone] documented as of this encounter Visit Diagnoses Not on filedocumented in this encounter Care Teams Director Employment Relationship Specialty Start Date End Date Lesly Whyte MD [address] [place] [address] PCP - General Internal Medicine 07/15/20 documented as of this encounter
--- OUTSIDE RECORDS SUMMARY | 2024-07-08 11:54 | XMS_ITS | Encounter Summary ---
Author Organization [facility] Address [address] [place] [address] Phone Care Team Providers Care Grinder Watch Parts Name Role Phone Lesly Whyte MD Primary Care Provider [phone] Encounter Details Date Type Department Care Team (Late st Contact Info) Description 11/21/2023 Documentation Only [facility] [address] [place] [address] Kelley Oakes [place] [address] [place] [phone] Social History Tobacco Use Types Packs/Day Years [...] Visit [facility] [address] [place] [phone] Lalito Novak MD [address] [place] [address] [place] [phone] documented as of this encounter Visit Diagnoses Not on filedocumented in this encounter Care Teams Grinder [employer] Relationship Specialty Start Date End Date Lesly Whyte MD [address] [place] [address] PCP - General Internal Medicine 07/15/20 documented as of this encounter
--- OUTSIDE RECORDS SUMMARY | 2024-07-08 11:54 | XMS_ITS | Encounter Summary ---
Author Organization [facility] Address [address] [place] [address] Phone Care Team Providers Care It Investment/Portfolio Manager Name Role Phone Lesly Whyte MD Primary Care Provider [phone] Encounter Details Date Type Department Care Team (Late st Contact Info) Description 11/22/2023 Documentation Only [facility] [address] [place] [address] Kelley Oakes [place] [address] [place] [phone] Social History Tobacco Use Types Packs/Day Years [...] Visit [facility] [address] [place] [phone] Lalito Novak MD [address] [place] [address] [place] [phone] documented as of this encounter Visit Diagnoses Not on filedocumented in this encounter Care Teams It Investment/Portfolio Manager Relationship Specialty Start Date End Date Lesly Whyte MD [address] [place] [address] PCP - General Internal Medicine 07/15/20 documented as of this encounter
--- OUTSIDE RECORDS SUMMARY | 2024-07-08 11:54 | XMS_ITS | Clinical Summary ---
Author Organization [facility] [place], Address [address] [place] [address] [place] [address] Phone Care Team Providers Care Restaurant Busser Name Role Phone Lesly Whyte MD Primary Care Provider [phone] Allergies Active Allergy Reactions Criticality Noted Date [...] Refill [facility] [address] [place] [address] Lalito Novak MD 05/12/2024 Refill [facility] [address] [place] [address] Lalito Novak MD 04/23/2024 9:30 AM EST Office Visit [facility] [address] [place] [address] Lalito Novak MD Stage 3b chronic kidney [...] Visit [facility] [address] [place] [address] Lalito Novak MD [address] [place] [address] [place] [address] Health Maintenance Due Date Last Done Comments Pneumococcal Vaccine: 65+ Ye ars (1 of 2 - PCV) 1958 Colorectal Cancer Screening: Annual FOBT 2001 Colorectal Cancer Screening: Colonoscopy 2001 Colorectal Cancer Screening: Sigmoidoscopy 2001 Influenza Vaccine (#1) 2024 Hepatitis B Vaccine Aged Out No longe r eligible based on patient's age to complete this topic Insurance [facility] MEDICARE Care Teams Restaurant Busser Relationship Specialty Start Date End Date Lesly Whyte MD [address] [place], [place] [phone] PCP - General Internal Medicine 07/15/20
--- OUTSIDE RECORDS SUMMARY | 2024-07-08 11:54 | XMS_ITS | Encounter Summary ---
Author Organization [facility] Address [address] [place] [address] Phone Care Team Providers Care Heel Edge Inker Machine Name Role Phone Lesly Whyte MD Primary Care Provider [phone] Reason for Visit * Reason Comments Med Refill Encounter Details Date Type Department Care Team (Late Contact Info) Description 12/02/2020 Refill [facility] [address] [place] [address] Prosper Valencia MD [address] [place] [address] [place] [address] Social History Tobacco Use Types [...] Visit [facility] [place], [address] [place] [phone] Lalito Novak MD [address] [place] [address] [place] [address] documented as of this encounter Visit Diagnoses Not on filedocumented in this encounter Care Teams Heel Edge Inker Machine Relationship Specialty Start Date End Date Lesly Whyte MD [address] [place] [address] PCP - General Internal Medicine 07/15/20 documented as of this encounter
== END 2024-07-08 10:46 | disposition home or self-care (01) ==
PROVIDERS: PCP Internal Medicine; Visit Provider Urology
DX: N32.0 Bladder-neck obstruction (principal); R97.20 Elevated prostate specific antigen [PSA]
CPT/HCPCS: 99214

== ENCOUNTER → 2024-07-08 10:09 | Outpatient (BNVA) | payer MEDICARE, SELFPAY | PROVIDERS: PCP Internal Medicine; Visit Provider Urology | DX: N32.0 Bladder-neck obstruction (principal); R97.20 Elevated prostate specific antigen [PSA] | CPT/HCPCS: 99212 ==

== ENCOUNTER 2024-08-12 09:46 | Outpatient (AMB) | payer MEDICARE, SELFPAY ==
[2024-08-12 09:58] VITALS: BP 130/70; PULSE 83; O2SAT 97; BMI 29.1
--- NOTE | 2024-08-12 09:58 | A.OFFPC_ITS ---
Vital Signs 08/12/24 09:58 Height 5 ft 7 in Weight 186 lb BMI 29.1 BP 130/70 Blood Pressure Location Lt brachial Position Sitting Pulse 83 Pulse Source Pulse Oximeter Pulse Oximetry (%) 97 Oxygen Delivery Method Room Air Intake Visit Reasons: Office visit Value Advisor Required: No Accompanied by: Self / Same As Patient Allergies morphine [MORPHINE] Allergy (Mild, Verified 08/12/24 10:23) CONSTIPATION sulfamethoxazole [From Bactrim] Allergy (Unknown, Verified 08/12/24 10:23) Unknown trimethoprim [From Bactrim] Allergy (Unknown, Verified 08/12/24 10:23) Unknown diclofenac Adverse Reaction (Intermediate, Verified 08/12/24 10:23) worsening renal function, hyperkalemia Medication List - Last Reconciled 08/12/24 by JENIFER Sparks- amlodipine 10 mg PO DAILY atorvastatin 20 mg PO DAILY famotidine (Acid-Pep) 20 mg PO BEDTIME PRN finasteride 5 mg PO DAILY 90 days folic acid 1 mg PO DAILY lisinopril 40 mg PO DAILY metoprolol succinate ER 50 mg PO DAILY tadalafil 20 mg PO DAILY Tobacco use date assessed: 08/12/24 Fall risk assessment: No Falls in past year Last assessed Fall Risk: 08/12/24 Dental Screening Dental Screen Date: 08/12/24 Did you have a dental visit in the last 12 months?: Yes Did you have a dental problem in the last 6 months where you did not have access to dental care?: No Was dental information given to patient?: Patient has dentist HPI Office visit HPI Details Chief Complaint Follow-up for stable hypertension management History of Present Illness The patient is a 74-year-old male presenting with a follow-up appointment for essential hypertension management. Blood pressure remains stable, with the patient experiencing no chest pain or shortness of breath. He denies any dizziness or blurred vision. His current medication regimen includes a beta gudelia, an GUS inhibitor, and amlodipine, which he has been taking as prescribed. Hx of elevated urice acid. denies any s/s of gout, or a gout flare. Additionally, the patient is managing hyperlipidemia with atorvastatin 20 mg. He has regular consultations with specialists, including a electronic funds transfer coordinator for cardiovascular management, a urologist, and a it service continuity supervisor. Plans are in place for further laboratory testing in the coming month to assess his overall health. Social History - Employment and family history were not discussed during the conversation. - No details provided regarding exercise , functional status, or nutrition. - [facility] Health Maintenance - Routine monitoring and management of b lood pressure. - Continued medication adherence for hyp ertension and hyperlipidemia. Review of Systems - Cardiovascular: Denies chest pain, kalani rtness of breath, dizziness, or blurred vision. Physical Exam General: Cooperative, healthy appearing, comfortable, no acute distress and well developed Orientation: Patient oriented x3 Limitations: No limitations Head: Normal to inspection Ears: Hearing grossly normal bilaterally Nose: Normal external nose present Face and sinus: Normal facial exam Eyes: Appearance normal, both eyes and all related structures Neck: Normal visual inspection and Yes full ROM Respiratory: Normal respiratory effort and able to speak in complete sentences. Clear to auscultation bilaterally Cardiovascular: Regular rate and rhythm. Normal S1 and S2 GI: Normal to inspection. Soft to palpation and nontender Skin: No rashes or lesions noted, recent sun exposure Neuro: Patient oriented x3 Extremities: Normal to inspection Results Plan The patient will maintain his current medication regimen for essential hypertension and hyperlipidemia. Next month, laboratory tests will be conducted to assess his overall health. He will continue seeing his electronic funds transfer coordinator, urologist, and it service continuity supervisor to ensure comprehensive management. These decisions align with his stable blood pressure and absence of related symptoms. Discussion Notes During the visit, I discussed the ongoing management of the patient's essential hypertension and hyperlipidemia. We reviewed the benefits of continuing the current medication regimen, and the patient expressed understanding and agreement. The necessity for forthcoming laboratory tests was explained to evaluate his health status further. The patient was reminded about the importance of adhering to his scheduled specialist consultations. I provided reassurance regarding his current stable condition and encouraged ongoing medication adherence as part of his health maintenance. Patient Instructions - Continue current medications as prescr ibed for hypertension and hyperlipidemia. - Schedule and undergo the laboratory te sts next month as discussed. - Follow up with your electronic funds transfer coordinator, urol ogist, and it service continuity supervisor as recommended. - Report any new symptoms such as chest pain, dizziness, or shortness of breath promptly. [facility] Medical History Chronic kidney disease Kidney disease HTN (hypertension) Other hydronephrosis Poor urinary stream Hyponatremia High cholesterol Surgical History History of prostate surgery S/P foot surgery, right History of right hip replacement Family History Father Alzheimer's dementia Mother Heart attack HTN (hypertension) Social History Housing: Condominium Alcohol intake: current Alcohol intake frequency: a few times a week Alcohol type: beer Patient Tobacco Use Status: Current someday Tobacco user Tobacco use type: Cigar e-Cigarette/Vaping Use: Never Used Current occupational status: retired Current occupation: right handed Cognitive needs: No Hearing needs: No Vision needs: No Questionnaire PHQ-9 Over the last 2 weeks, how often have you been bothered by any of the following problems? 1. Little interest or pleasure in doing things: not at all 2. Feeling down, depressed, or hopeless: not at all 3. Trouble falling or staying asleep, or sleeping too much: not at all 4. Feeling tired or having little energy: not at all 5. Poor appetite or overeating: not at all 6. Feeling bad about yourself - or that you are a failure or have let yourself or your family down: not at all 7. Trouble concentrating on things, such as reading the newspaper or watching television: not at all 8. Moving or speaking so slowly that other people could have noticed. Or the opposite - being so fidgety or restless that you have been moving around a lot more than usual: not at all 9. Thoughts that you would be better off or of hurting yourself in some way: not at all Total score: 0 Depression Screening Interpretation: Negative Depression Screening Done: Yes 17155 - PHQ-9 Billing: Yes Source: Developed by Drs. Mark Paulino, Fernanda Taylor, Andrés Salcedo and colleagues, with an educational artem from [employer]. Thrive Questionnaire Date Thrive assessed: 08/12/24 I am a: Patient What is your living situation today?: I have a steady place to live Within the past 12 months, did the food you bought not last and you didn't have the money to get more?: Never true Within the past 12 months, did you worry whether your food would run out before you got money to buy more?: Never true Do you have trouble paying for medicines?: No Do you have trouble getting transportation to medical appointments?: No Do you have trouble paying your heating and electricity bill?: No Do you have trouble taking care of your child, family member or friend?: No Do you have trouble with day-to-day activities such as bathing, preparing meals, shopping, managing finances, etc.?: No Are you currently unemployed and looking for a job?: No Are you interested in more education?: No Please select the resources that you would like help with: None Currently or been in a relationship where the following occur: No concerns reported THRIVE Score: 0 AUDIT C Alcohol Use Questionnaire (AUDIT-C) 1. How often do you have a drink containing alcohol?: 4 or more times a week 2. How many drinks containing alcohol do you have on a typical day when you are drinking?: 3 or 4 3. How often do you have six or more drinks on one occasion?: Less than monthly Total Score: 6 Score Reviewed/Action Taken: Yes VALENTINO-7 AMB Questionnaire VALENTINO-7 Date VALENTINO - 7 assessed: 08/12/24 Feeling nervous, anxious, or on edge: 0 = Not at all Not being able to stop or control worryin = Not at all Worrying too much about different things: 0 = Not at all Trouble relaxin = Not at all Being so restless that it is hard to sit still: 0 = Not at all Becoming easily annoyed or irritable: 0 = Not at all Feeling afraid as if something awful might happen: 0 = Not at all Total VALENTINO-7 score (0-4 normal; 5-9 mild; 10-14 moderate; 15-21 severe): 0 Source: Developed by Drs. Mark Paulino, Fernanda Taylor, Andrés Salcedo and colleagues, with an educational artem from [employer]. VALENTINO-7 Assessment Billing VALENTINO-7 Assessment Tool: VALENTINO-7 Assessment 32718 Physical exam (Primary Care) Vital Signs: Last Vital Signs Pulse 83 08/12/24 09:58 BP 130/70 08/12/24 09:58 Pulse Ox 97 08/12/24 09:58 Oxygen Delivery Method Room Air 08/12/24 09:58 BMI result Body Mass Index 29.1 Tobacco/Smoking Status: Tobacco use Status Tobacco use date assessed 08/12/24 08/12/24 10:00 Patient Tobacco Use Status Current someday Tobacco 08/12/24 10:00 Tobacco use type Cigar 08/12/24 10:00 e-Cigarette/Vaping Use Never Used 08/12/24 10:00 PHQ-9: PHQ-9 Score PHQ-9: Total score 0 08/12/24 10:00 Depression Screening Interpretation: Negative Thrive Assessment: Date of Thrive Assessment Date Thrive assessed 08/12/24 08/12/24 10:00 Currently or been in a relationship where the following occur: No concerns reported Coding Level of Care Code Est Pt Level 3 (86017) Diagnoses HTN (hypertension) I10 Dyslipidemia E78.5 Elevated uric acid in blood E79.0 Additional Codes VALENTINO-7 Assessment Billing - VALENTINO-7 Assessment Tool: VALENTINO-7 Assessment 06946 ([id number]) PHQ-9 - 43035 - PHQ-9 Billing: Yes ([id number]) Assessment & Plan Assessment & Plan (1) HTN (hypertension): Code(s): I10 - Essential (primary) hypertension Category: Medical (2) Dyslipidemia: Code(s): E78.5 - Hyperlipidemia, unspecified Category: Medical (3) Elevated uric acid in blood: Code(s): E79.0 - Hyperuricemia without signs of inflammatory arthritis and tophaceous disease Category: Medical Plan . Orders: Orders Complete Blood Count Auto Diff Today E78.5 - Hyperlipidemia, unspecified, I10 - Essential (primary) hypertension Comprehensive [place]. Panel Fast Today E78.5 - Hyperlipidemia, unspecified, I10 - Essential (primary) hypertension TSH reflex Free T4 Today E78.5 - Hyperlipidemia, unspecified, I10 - Essential (primary) hypertension UA CC w/rflx Micro + Cult Today E78.5 - Hyperlipidemia, unspecified, I10 - Essential (primary) hypertension Lipid Panel Today E78.5 - Hyperlipidemia, unspecified, I10 - Essential (primary) hypertension Uric Acid Today E79.0 - Hyperuricemia without signs of inflammatory arthritis and tophaceous disease
--- OUTSIDE RECORDS SUMMARY | 2024-08-12 11:21 | XMS_ITS | Encounter Summary ---
Author Organization [facility] Address [address] [place] [address] Phone Care Team Providers Care Information Systems Consultant Name Role Phone Lesly Whyte MD Primary Care Provider [phone] Encounter Details Date Type Department Care Team (Late st Contact Info) Description 11/22/2023 Documentation Only [facility] [address] [place] [address] Kelley Oakes [place] [address] [place] [phone] Social History Tobacco Use Types Packs/Day Years Used Date Smoking Tobacco: Some Days Cigars Sex and Gender Information Value Date Recorded Sex Assigned at Not on file Legal Sex Male 4:32 PM EST Gender Identity Not on file Sexual Orientation Not on file documented as of this encounter Plan of Treatment Upcoming Encounters Date Type Department Care Team (Late st Contact Info) Description 10/02/2024 11:30 AM EDT Office Visit [facility] [address] [place] [address] Lalito Novak MD [address] [place] [address] [place] [address] documented as of this encounter Visit Diagnoses Not on filedocumented in this encounter Care Teams Information Systems Consultant Relationship Specialty Start Date End Date Lesly Whyte MD [address] [place], [place] [id number] PCP - General Internal Medicine 07/15/20 documented as of this encounter
--- OUTSIDE RECORDS SUMMARY | 2024-08-12 11:21 | XMS_ITS | Encounter Summary ---
Author Organization [facility] Address [address] [place] [address] Phone Care Team Providers Care District Court Justice Name Role Phone Lesly Whyte MD Primary Care Provider [phone] Encounter Details Date Type Department Care Team (Late st Contact Info) Description 11/21/2023 Documentation Only [facility] [address] [place] [address] Kelley Oakes [place] [address] [place] [phone] Social History Tobacco Use Types Packs/Day Years [...] [facility] [address] [place] [address] Lalito Novak MD [address] [place] [address] [place] [address] documented as of this encounter Visit Diagnoses Not on filedocumented in this encounter Care Teams District Court Justice Relationship Specialty Start Date End Date Lesly Whyte MD [address] [place], [place] [id number] PCP - General Internal Medicine 07/15/20 documented as of this encounter
--- OUTSIDE RECORDS SUMMARY | 2024-08-12 11:21 | XMS_ITS | Clinical Summary ---
Author Organization [facility] [place], Address [address] [place] [address] [place] [address] Phone Care Team Providers Care Transfer Specialist Name Role Phone Lesly Whyte MD Primary Care Provider [phone] Allergies Active Allergy Reactions Criticality Noted Date [...] Encounters Date Type Department Care Team Description 07/09/2024 10:40 AM EST Office Visit [facility] [place], [address] [place] [address] Lalito Novak MD Stage 3b chronic kidney [...] Office Visit [facility] [place], [address] [place] [phone] Lalito Novak MD [address] [facility] [place] [address] Health Maintenance Due Date Last Done Comments Pneumococcal Vaccine: 65+ Ye ars (1 of 2 - PCV) 1956 Colorectal Cancer Screening: Annual FOBT 2001 Colorectal Cancer Screening: Colonoscopy 2001 Colorectal Cancer Screening: Sigmoidoscopy 2001 Influenza Vaccine (#1) 2024 Hepatitis B Vaccine Aged Out No longe r eligible based on patient's age to complete this topic Insurance [facility] [place] [address] Care Teams Transfer Specialist Relationship Specialty Start Date End Date Lesly Whyte MD [address] [place] [address] PCP - General Internal Medicine 07/15/20
--- OUTSIDE RECORDS SUMMARY | 2024-08-12 11:21 | XMS_ITS | Encounter Summary ---
Author Organization [facility] Address [address] [place] [address] Phone Care Team Providers Care Yarn Skeins Examiner Name Role Phone Lesly Whyte MD Primary Care Provider [phone] Reason for Visit * Reason Comments Med Refill Encounter Details Date Type Department Care Team (Late Contact Info) Description 12/02/2020 Refill [facility] [place] [address] [place] [address] Prosper Valencia MD [address] [place] [address] [place] [address] Social History Tobacco Use Types [...] Visit [facility] [place], [address] [place] [address] Lalito Novak MD [address] [place] [address] [place] [address] documented as of this encounter Visit Diagnoses Not on filedocumented in this encounter Care Teams Yarn Skeins Examiner Relationship Specialty Start Date End Date Lesly Whyte MD [address] [place] [address] PCP - General Internal Medicine 07/15/20 documented as of this encounter
--- OUTSIDE RECORDS SUMMARY | 2024-08-12 11:21 | XMS_ITS | Encounter Summary ---
Author Organization [facility] Address [address] [place] [address] Phone Care Team Providers Care Operations Officer Name Role Phone Lesly Whyte MD Primary Care Provider [phone] Encounter Details Date Type Department Care Team (Late st Contact Info) Description 11/28/2023 Documentation Only [facility] [address] [place] [address] Kelley Oakes [place] [address] [place] [phone] Social History Tobacco Use Types Packs/Day Years [...] Visit [facility] [address] [place] [address] Lalito Novak MD [address] [place] [address] [place] [address] documented as of this encounter Visit Diagnoses Not on filedocumented in this encounter Care Teams Operations Officer Relationship Specialty Start Date End Date Lesly Whyte MD [address] [place], [place] [id number] PCP - General Internal Medicine 07/15/20 documented as of this encounter
== END 2024-08-12 11:23 | disposition home or self-care (01) ==
LOC: HO.HMCC 09:46
PROVIDERS: PCP Internal Medicine; Visit Provider Nurse Practitioner Family
DX: I10 Essential (primary) hypertension (principal); E78.5 Hyperlipidemia, unspecified; E79.0 Hyperuricemia without signs of inflammatory arthritis and tophaceous disease

== ENCOUNTER → 2024-08-12 09:46 | Outpatient (BNVA) | payer MEDICARE, SELFPAY | PROVIDERS: PCP Internal Medicine; Visit Provider Nurse Practitioner Family | DX: I10 Essential (primary) hypertension (principal); E78.5 Hyperlipidemia, unspecified; E79.0 Hyperuricemia without signs of inflammatory arthritis and tophaceous disease | CPT/HCPCS: 96127; 99212 ==

== ENCOUNTER 2024-08-14 07:41 | Outpatient (REF) | payer MEDICARE, SELFPAY ==
--- OUTSIDE RECORDS SUMMARY | 2024-08-14 07:43 | XMS_ITS | Encounter Summary ---
Author Organization [facility] Address [address] [place] [address] Phone Care Team Providers Care Optical Scientist Name Role Phone Lesly Whyte MD Primary Care Provider [phone] Reason for Visit * Reason Comments Med Refill Encounter Details Date Type Department Care Team (Late Contact Info) Description 12/02/2020 Refill [facility] [address] [place] [address] Prosper Valencia MD [address] [place] [address] [place] [address] Social History Tobacco Use Types [...] Visit [facility] [place], [address] [place] [address] Lalito Novak MD [address] [place] [address] [place] [address] documented as of this encounter Visit Diagnoses Not on filedocumented in this encounter Care Teams Optical Scientist Relationship Specialty Start Date End Date Lesly Whyte MD [address] [place] [address] PCP - General Internal Medicine 07/15/20 documented as of this encounter
--- OUTSIDE RECORDS SUMMARY | 2024-08-14 07:44 | XMS_ITS | Clinical Summary ---
Author Organization [facility] [place], Address [address] [place] [address] [place] [address] Phone Care Team Providers Care Non Clinical Advisor Name Role Phone Lesly Whyte MD Primary Care Provider [phone] Allergies Active Allergy Reactions Criticality Noted Date [...] Office Visit [facility], [address] [address] Lalito Novak MD Stage 3b chronic kidney [...] Office Visit [facility], [address] [address] Lalito Novak MD [address] [facility] [place] [address] Health Maintenance Due Date Last Done Comments Pneumococcal Vaccine: 65+ Ye ars (1 of 2 - PCV) 1958 Colorectal Cancer Screening: Annual FOBT 2001 Colorectal Cancer Screening: Colonoscopy 2001 Colorectal Cancer Screening: Sigmoidoscopy 2001 Influenza Vaccine (#1) 2024 Hepatitis B Vaccine Aged Out No longe r eligible based on patient's age to complete this topic Insurance [facility] MEDICARE Care Teams Non Clinical Advisor Relationship Specialty Start Date End Date Lesly Whyte MD [address] [place] [address] PCP - General Internal Medicine 07/15/20
--- OUTSIDE RECORDS SUMMARY | 2024-08-14 07:44 | XMS_ITS | Encounter Summary ---
Author Organization [facility] Address [address] [place] [address] Phone Care Team Providers Care Museum Librarian Name Role Phone Lesly Whyte MD Primary Care Provider [phone] Encounter Details Date Type Department Care Team (Late st Contact Info) Description 11/28/2023 Documentation Only [facility] [address] [place] [address] Kelley Oakes [place] [address] [place] [address] Social History Tobacco Use Types Packs/Day Years [...] Visit [facility] [address] [place] [address] Lalito Novak MD [address] [place] [address] [place] [address] documented as of this encounter Visit Diagnoses Not on filedocumented in this encounter Care Teams Museum Librarian Relationship Specialty Start Date End Date Lesyl Whyte MD [address] [place], [place] [phone] PCP - General Internal Medicine 07/15/20 documented as of this encounter
--- OUTSIDE RECORDS SUMMARY | 2024-08-14 07:44 | XMS_ITS | Encounter Summary ---
Author Organization [facility] Address [address] [place] [address] Phone Care Team Providers Care Fleet Service Clerk Name Role Phone Lesly Whyte MD Primary Care Provider [phone] Encounter Details Date Type Department Care Team (Late st Contact Info) Description 11/22/2023 Documentation Only [facility] [address] [place] [address] Kelley Oakes [place] [address] [place] [phone] Social History Tobacco Use Types Packs/Day Years [...] Visit [facility] [address] [place] [address] Lalito Novak MD [address] [place] [address] [place] [address] documented as of this encounter Visit Diagnoses Not on filedocumented in this encounter Care Teams Fleet Service Clerk Relationship Specialty Start Date End Date Lesly Whyte MD [address] [place], [place] [phone] PCP - General Internal Medicine 07/15/20 documented as of this encounter
--- OUTSIDE RECORDS SUMMARY | 2024-08-14 07:44 | XMS_ITS | Encounter Summary ---
Author Organization [facility] Address [address] [place] [address] Phone Care Team Providers Care Refinery Operator Helper Crude Unit Name Role Phone Lesly Whyte MD Primary Care Provider [phone] Encounter Details Date Type Department Care Team (Late st Contact Info) Description 11/21/2023 Documentation Only [facility] [address] [place] [address] [address] [place] [address] [place] [phone] Social History Tobacco Use Types Packs/Day Years [...] [facility] [address] [place] [address] Lalito oNvak MD [address] [place] [address] [place] [address] documented as of this encounter Visit Diagnoses Not on filedocumented in this encounter Care Teams Refinery Operator Helper Crude Unit Relationship Specialty Start Date End Date Lesly Whyte MD [address] [place], [place] [phone] PCP - General Internal Medicine 07/15/20 documented as of this encounter
[2024-08-14] MEDS: Lidocaine HCl 1 % MPF 5 ML VIAL 10 ML SUBCUT (08:43)
--- NOTE | 2024-08-14 16:55 | W.PM.OPN ---
Operative Note Operative Note Date of Service: 08/14/24 Narrative: Preoperative diagnosis: Elevated PSA Postoperative diagnosis: Elevated PSA Procedure: 1. transrectal ultrasound measurement of prostate 2. transrectal ultrasound-guided pudendal nerve block 3. transrectal ultrasound-guided prostate biopsy 12 core Surgeon: Dr. Chico Cooper Anesthetic: 10cc 1% lidocaine Indications for procedure: Elevated PSA 5.4 Counselling: Technical aspects, risks and benefits of proposed procedure were discussed in full. All questions have been answered, written consent has been obtained and patient agrees to proceed. Procedure: The patient was brought into the procedure area and placed in a left lateral decubitus position. Patient identity confirmed. Perioperative antibiotics confirmed. Safety pause time out performed. GEOFFREY was performed to dilate rectal sphincter Iodine 10cc with 60 cc gel was placed per rectum to reduce infection risk using a catheter tip syringe. 8 Hz Christian rectal end-fire ultrasound probe was placed transrectally without difficulty. The prostate was visualized. Seminal vesicles were normal. Prostate margins were clearly demarcated. Bladder was seen superiorly. No cystic structures were noted No calcifications were noted at the surgical margin The prostate was otherwise homogeneous in nature The prostate was measured in 3 dimensions Prostatic Width: 4 cm Prostatic Height: 3 cm Urethral Length: 5 cm Total volume equals : 60 ml An ultrasound-guided pudendal nerve block was performed using a 22 gauge spinal needle in the sagittal plane. 4 cc of 1% lidocaine placed at the junction of each seminal vesicle and 2 cc placed at the apex of the prostate. A 12 core biopsy was performed with 6 cores each side using an 18 gauge prostate biopsy gun. Two cores each were taken at the prostate apex, mid and base on each side. Cores were spaced between lateral and medial aspects. Each core was examined as placed on specimen foam as part of senior quality control inspector to ensure a minimum 1 cm of length and minimal discontinuity. He tolerated the procedure well with minimal rectal bleeding. Blood pressure remained stable following procedure. He was able to ambulate to bathroom after 5 minutes. Printed instructions regarding antibiotic use and common adverse events from the procedure such as low-grade temperature, potential infection and bleeding were given. He understands to call the office or go to an emergency room should any of these events arise. Pathology: 12 core prostate biopsy. CPT code 77893: Transrectal ultrasound; this is a diagnostic test for evaluation of the prostate and surrounding structures, looking for abnormalities or suspicious areas worrisome for cancer CPT code 80412: Biopsy, prostate; needle or punch, single or multiple, any approach CPT code 11168: Ultrasonic guidance for needle placement (eg, biopsy, aspiration, injection, localization device), imaging supervision and interpretation
== END 2024-08-14 07:42 | disposition home or self-care (01) ==
LOC: HO.US 07:41
PROVIDERS: PCP Internal Medicine; Visit Provider Urology
DX: C61 Malignant neoplasm of prostate (principal); R97.20 Elevated prostate specific antigen [PSA]
CPT/HCPCS: 55700; 76942; 88305; J2003

== ENCOUNTER → 2024-08-14 07:41 | Outpatient (BNV) | payer MEDICARE, SELFPAY | PROVIDERS: PCP Internal Medicine; Visit Provider Urology | DX: R97.20 Elevated prostate specific antigen [PSA] (principal) | CPT/HCPCS: 55700; 76872; 76942 ==

== ENCOUNTER 2024-09-02 10:51 | Outpatient (AMB) | payer MEDICARE, SELFPAY ==
[2024-09-02 11:29] VITALS: BMI 29.1
--- NOTE | 2024-09-02 11:29 | MHC.OFFVIS ---
Vital Signs 09/02/24 11:29 Height 5 ft 7 in Weight 186 lb BMI 29.1 Intake Visit Reasons: Prostate biopsy results Intake Note: Erasto 74 yr old male presents today for his prostate biopsy results. Allergies morphine [MORPHINE] Allergy (Mild, Verified 09/02/24 11:30) CONSTIPATION sulfamethoxazole [From Bactrim] Allergy (Unknown, Verified 09/02/24 11:30) Unknown trimethoprim [From Bactrim] Allergy (Unknown, Verified 09/02/24 11:30) Unknown diclofenac Adverse Reaction (Intermediate, Verified 09/02/24 11:30) worsening renal function, hyperkalemia HPI Comments Details: Erasto is a pleasant male. He is a patient of Dr. Whyte, He is seen for the following urologic conditions - lower urinary tract symptoms - prior hydronephrosis - manage through Dr. Valencia - prostate cancer Prostate cancer diagnosis Discussed findings Plan for staging with prostate MRI and PET-CT Will obtain genetics since discordant Payette score Continues on finasteride 5 mg daily with tadalafil 20 mg daily Prostate cancer low volume, grade group 3 Trigger rising PSA despite finasteride PSA 12/03 2.4, 12/04 3.8, 07/08 5.1 F 22% 60 g prostate at TRUS PT1c 09/05 Histologic type: Adenocarcinoma, acinar type Payette score: 4+3=7 (left mid medial - 60%), 3+3=6 (left apex lateral 70%, left apex medial - 10%) Grade group: 3 and 1 Tumor quantitation: Number cores positive: 3 Total number of cores: 12 Periprostatic fat inv.: Not identified Seminal vesicle inv.: Not identified Perineural inv.: Present LVI: Not identified Lower Urinary Tract Symptoms: Current visit is for further evaluation of, lower urinary tract symptoms, predominate obstructive symptoms. Current treatment includes medication, alpha gudelia, tamsulosin - since 2007 - added finasteride 07/30 - 08/30 stent with prostate procedure - 07/03 stent removal. - 12/03 combination finasteride and tadalafil g daily Prior treatments include 08/30 prostate procedure, stents 09/29 Lasix renogram. Right 58%, left 42%, reported T 1/2 20 minutes left. States good perfusion with clearance. No obvious obstruction.. - 05/02 Lasix renogram. Prompt excretion bilateral, T half less than 5 minutes bilateral. Prostate Symptom Score 2/19 , Mild (0-8), Bother 3. Symptoms include 07/02 , incomplete emptying, weak stream, and are stable. PSA 07/30 Cr 1.78 08/30 Cr 1.9 01/30 Cr 2.2 07/03 Cr 1.6, 10/31 Cr 1.7, 05/02 2.1, 10/02 1.8, 12/03 1.6, 02/03 1.5 Treatment plan - continue [facility] Medical History Chronic kidney disease Kidney disease HTN (hypertension) Other hydronephrosis Poor urinary stream Hyponatremia High cholesterol Surgical History History of prostate surgery S/P foot surgery, right History of right hip replacement Family History Father Alzheimer's dementia Mother Heart attack HTN (hypertension) Social History Housing: Condominium Alcohol intake: current Alcohol intake frequency: a few times a week Alcohol type: beer Patient Tobacco Use Status: Current someday Tobacco user Tobacco use type: Cigar e-Cigarette/Vaping Use: Never Used Current occupational status: retired Current occupation: right handed Cognitive needs: No Hearing needs: No Vision needs: No Review of Systems Const Denies chills and Denies fever(s) Card Reports no additional complaints and Denies syncope Resp Denies cough GI Denies abdominal pain and Denies heartburn Reports as per HPI and Denies change in libido Neuro Denies syncope Psych Denies change in libido Endo Denies change in libido Physical Exam Vital Signs: BMI result Body Mass Index 29.1 Const General: cooperative, healthy appearing, comfortable and no acute distress Orientation/consciousness: patient oriented x3 HEENT Face and sinus: Yes normal facial exam Mouth: moist mucous membranes Neck Neck: Yes normal visual inspection, Yes full ROM and Yes trachea midline Chest Chest palpation & inspection: normal inspection of the chest Resp Effort & Inspection: normal respiratory effort, able to speak in complete sentences and no respiratory distress GI Inspection: Yes normal to inspection Back/Spine/Pelvis Cervical Spine: normal cervical lordosis Thoracic/Lumbar Spine: thoracic and lumbar spine normal to inspection Skin General skin exam: no rashes or lesions noted Neuro General: patient oriented x3, gait normal, tone normal and moves all extremities Extrem General: Yes normal to inspection and Yes capillary refill normal Assessment & Plan Assessment & Plan (1) Hormone sensitive prostate cancer: Code(s): C61 - Malignant neoplasm of prostate; Z19.1 - Hormone sensitive malignancy status Category: Medical Plan PET-CT, prostate MRI, genetics Orders: Orders MR Prostate wo/w con 4 Weeks R97.20 - Elevated prostate specific antigen [PSA] PET CT fusion skull to thigh Today C61 - Malignant neoplasm of prostate Patient Instructions: This note is constructed using voice recognition software. While every effort has been made to ensure accuracy geochemical laboratory technician errors may have been included. Imaging studies, laboratory and physical exam results were discussed and reviewed in detail. No major barriers to patient understanding were identified. An opportunity to ask questions regarding the treatment plan was provided. All questions were answered. The patient expressed understanding and agreement with the above treatment plan. The patient is aware they should contact our office by phone for worsening of their current condition or the appearance of new urologic symptoms. Compliance is encouraged with any medications and followup testing that is ordered. It is a privilege to participate in the urologic care of your patient. If you have any questions or concerns regarding treatment for the above conditions, or other urologic issues, please do not hesitate to contact me. The office telephone contact is [phone]. Sincerely, Dr Chico Cooper MD, [facility] [place] [facility] - Urology Compassionate Specialist Care for the Genitourinary System Coding Level of Care Code Est Pt Level 4 (35473) Complex EM visit Add On G2211 Diagnoses Hormone sensitive prostate cancer C61; Z19.1
--- OUTSIDE RECORDS SUMMARY | 2024-09-02 12:52 | XMS_ITS | Encounter Summary ---
Author Organization [facility] Address [address] [place] [address] Phone Care Team Providers Care Trademark Affixer Name Role Phone Lesly Whyte MD Primary Care Provider [phone] Encounter Details Date Type Department Care Team (Late st Contact Info) Description 11/28/2023 Documentation Only [facility] [address] [place] [address] Kelley Oakes [place] [address] [place] [address] Social History Tobacco Use Types Packs/Day Years [...] Visit [facility] [address] [place] [place] [address] Lalito Novak MD [address] [place] [address] [place] [address] documented as of this encounter Visit Diagnoses Not on filedocumented in this encounter Care Teams Trademark Affixer Relationship Specialty Start Date End Date Lesly Whyte MD [address] [place], [place] [phone] PCP - General Internal Medicine 07/15/20 documented as of this encounter
--- OUTSIDE RECORDS SUMMARY | 2024-09-02 12:52 | XMS_ITS | Encounter Summary ---
Author Organization [facility] Address [address] [place] [address] Phone Care Team Providers Care V Belt Coverer Name Role Phone Lesly Whyte MD Primary Care Provider [phone] Encounter Details Date Type Department Care Team (Late st Contact Info) Description 11/22/2023 Documentation Only [facility] [address] [place] [address] Kelley Oakes [place] [address] [place] [address] Social History Tobacco Use Types Packs/Day Years [...] Visit [facility] [address] [place] [address] Lalito Novak MD [address] [place] [address] [place] [address] documented as of this encounter Visit Diagnoses Not on filedocumented in this encounter Care Teams V Belt Coverer Relationship Specialty Start Date End Date Lesly Whyte MD [address] [place], [place] [id number] PCP - General Internal Medicine 07/15/20 documented as of this encounter
--- OUTSIDE RECORDS SUMMARY | 2024-09-02 12:52 | XMS_ITS | Encounter Summary ---
Author Organization [facility] Address [address] [place] [address] Phone Care Team Providers Care Traffic Inspector Name Role Phone Lesly Whyte MD Primary Care Provider [phone] Encounter Details Date Type Department Care Team (Late st Contact Info) Description 11/21/2023 Documentation Only [facility] [address] [place] [address] Kelley Oakes [place] [address] [place] [phone] Social History Tobacco Use Types Packs/Day Years [...] Visit [facility] [address] [place] [address] Lalito Novak MD [address] [place] [address] [place] [address] documented as of this encounter Visit Diagnoses Not on filedocumented in this encounter Care Teams Traffic Inspector Relationship Specialty Start Date End Date Lesly Whyte MD [address] [place], [place] [id number] PCP - General Internal Medicine 07/15/20 documented as of this encounter
--- OUTSIDE RECORDS SUMMARY | 2024-09-02 12:52 | XMS_ITS | Encounter Summary ---
Author Organization [facility] Address [address] [place] [address] Phone Care Team Providers Care Human Resources Professional Name Role Phone Lesly Whyte MD Primary Care Provider [phone] Reason for Visit * Reason Comments Med Refill Encounter Details Date Type Department Care Team (Late st Contact Info) Description 12/02/2020 Refill [facility] [address] [place] [phone] Prosper Valencia MD Social History Tobacco Use Types Packs/Day Years Used Date Smoking Tobacco: Some Days Cigars Sex and Gender Information Value Date Recorded Sex Assigned at Not on file Legal Sex Male 4:32 PM EST Gender Identity Not on file Sexual Orientation Not on file documented as of this encounter Plan of Treatment Upcoming Encounters Date Type Department Care Team (Late Contact Info) Description 10/02/2024 11:30 AM EDT Office Visit [facility] [address] [place] [address] Lalito Novak MD [address] [place] [address] [place] [phone] documented as of this encounter Visit Diagnoses Not on filedocumented in this encounter Care Teams Human Resources Professional Relationship Specialty Start Date End Date Lesly Whyte MD [address] [place] [address] PCP - General Internal Medicine 07/15/20 documented as of this encounter
--- OUTSIDE RECORDS SUMMARY | 2024-09-02 12:52 | XMS_ITS | Clinical Summary ---
Author Organization [facility] [place], Address [address] [place] [address] [place] [address] Phone Care Team Providers Care Pcas Name Role Phone Lesly Whyte MD Primary Care Provider [phone] Allergies Active Allergy Reactions Criticality Noted Date [...] Office Visit [facility], [address] [place] [address] Lalito Novak MD Stage 3b chronic kidney disease (HCC) (Primary Dx) from Last 3 Months Immunizations Immunization Administration Dates Next Due Pfizer SARS-COV-2 09/23/2020,09/02/2020 [...] Office Visit [facility], [address] [place] [phone] Lalito Novak MD [address] [place] [phone] Health Maintenance Due Date Last Done Comments Pneumococcal Vaccine: 50+ Ye ars (1 of 2 - PCV) 07/28/1971 Colorectal Cancer Screening: Annual FOBT 2001 Colorectal Cancer Screening: Colonoscopy 2001 Colorectal Cancer Screening: Sigmoidoscopy 2001 Influenza Vaccine (Season Ended) 2025 Hepatitis B Vaccine Aged Out No longe r eligible based on patient's age to complete this topic Insurance [facility] Medicare Care Teams Pcas Relationship Specialty Start Date End Date Lesly Whyte MD [address] [place] [address] PCP - General Internal Medicine 07/15/20
== END 2024-09-02 12:09 | disposition home or self-care (01) ==
LOC: HO.HUSH 10:52
PROVIDERS: PCP Internal Medicine; Visit Provider Urology
DX: C61 Malignant neoplasm of prostate (principal); Z19.1 Hormone sensitive malignancy status
CPT/HCPCS: 99214; G2211

== ENCOUNTER → 2024-09-02 10:51 | Outpatient (BNVA) | payer MEDICARE, SELFPAY | PROVIDERS: PCP Internal Medicine; Visit Provider Urology | DX: C61 Malignant neoplasm of prostate (principal); Z19.1 Hormone sensitive malignancy status | CPT/HCPCS: 99212 ==

== ENCOUNTER 2024-09-23 10:42 | Outpatient (REF) | payer MEDICARE, SELFPAY ==
--- NOTE | ~2024-09-23 | PE_ITS ---
EXAMINATION: FLUORINE-18 FDG PET/CT SCAN CLINICAL INFORMATION: Malignant neoplasm of prostate. TECHNIQUE: 55 minutes following the intravenous administration of 5.3 mCi of gallium PSMA gozetotide from the skull base to proximal thighs were obtained using a combined PET/CT scanner with CT scan based attenuation correction. No oral or intravenous contrast was administered. Transverse, coronal, sagittal, and volume reconstruction projections were obtained. . The radiotracer was injected intravenously through left antecubital vein, without any complications. Total CT exam dose-length product 888 mGy-cm. * These CT images were obtained using dose optimization techniques as appropriate, variously including the following: Automated exposure control * Adjustment of mA and/or kV according to patient size (this includes techniques or standardized protocols for targeted exams where dose is matched to indication/reason for exam; i.e. extremities or head) * Use of iterative reconstruction technique COMPARISON: Ultrasound prostate biopsy 08/14/2024. FINDINGS: HEAD AND NECK: No abnormal radiotracer uptake. No large intracranial hemorrhage, acute territorial infarct or significant shift of midline structures. CHEST: Ports and Devices: None Lungs: No abnormal radiotracer uptake. Pleura: No significant pleural effusion. Lymph Nodes: No tracer-avid mediastinal, hilar or internal mammary or axillary lymphadenopathy. Mediastinum: There is no significant pericardial effusion/thickening. There is mild coronary artery calcifications. No pericardial effusion seen. Breasts/Chest Wall: No abnormal radiotracer uptake. ABDOMEN/PELVIS: Liver/Biliary System: No focal tracer-avid liver lesion. The gallbladder appears unremarkable. Pancreas: Normal.No pancreatic ductal dilatation seen. Spleen: No abnormal radiotracer uptake. No evidence of splenomegaly. Adrenal Glands: No abnormal radiotracer uptake. Kidneys: No hydronephrosis, hydroureter or renal calculi bilaterally. Bowel: There is no significant bowel dilatation to suggest obstruction. Lymph Nodes: No abnormal lymph nodes seen in the retroperitoneal, pelvis or the lateral region. Pelvic Organs: The urinary bladder is underdistended. MUSCULOSKELETAL: No aggressive lytic or sclerotic process seen. VASCULAR: Unremarkable. PET/PET CT fusion skull to thigh IMPRESSION: No abnormal gallium PSMA isotope activity seen in retroperitoneal, internal, external iliac or pelvic lymph nodes to suspect any metastatic lymph nodes.. Electronically signed by: Ishan King MD 09/23/2024 01:52 PM EDT
--- OUTSIDE RECORDS SUMMARY | 2024-09-23 11:57 | XMS_ITS | Encounter Summary ---
Author Organization [facility] Address [address] [place] [address] Phone Care Team Providers Care Glaucoma Specialist Name Role Phone Lesly Whyte MD Primary Care Provider [phone] Encounter Details Date Type Department Care Team (Late st Contact Info) Description 11/21/2023 Documentation Only [facility] [address] [place] [address] Kelley Oakes [place] [address] [place] [phone] Social History Tobacco Use Types Packs/Day Years [...] [facility] [address] [place] [address] Lalito Novak MD [address] [place] [address] [place] [address] documented as of this encounter Visit Diagnoses Not on filedocumented in this encounter Care Teams Glaucoma Specialist Relationship Specialty Start Date End Date Lesly Whyte MD [address] [place], [place] [id number] PCP - General Internal Medicine 07/15/20 documented as of this encounter
--- OUTSIDE RECORDS SUMMARY | 2024-09-23 11:57 | XMS_ITS | Encounter Summary ---
Author Organization [facility] Address [address] [place] [address] Phone Care Team Providers Care Cartographic Designer Name Role Phone Lesly Whyte MD Primary Care Provider [phone] Reason for Visit * Reason Comments Med Refill Encounter Details Date Type Department Care Team (Late st Contact Info) Description 12/02/2020 Refill [facility] [address] [place] [phone] Prosper Valencia MD Social History Tobacco Use [...] Office Visit [facility] [address] [place] [address] Lalito Novak MD [address] [place] [address] [place] [address] documented as of this encounter Visit Diagnoses Not on filedocumented in this encounter Care Teams Cartographic Designer Relationship Specialty Start Date End Date Lesly Whyte MD [address] [place] [address] PCP - General Internal Medicine 07/15/20 documented as of this encounter
--- OUTSIDE RECORDS SUMMARY | 2024-09-23 11:57 | XMS_ITS | Encounter Summary ---
Author Organization [facility] Address [address] [place] [address] Phone Care Team Providers Care Entrepreneur Name Role Phone Lesly Whyte MD Primary Care Provider [phone] Encounter Details Date Type Department Care Team (Late st Contact Info) Description 11/28/2023 Documentation Only [facility] [address] [place] [address] Kelley Oakes [place] [address] [place] [phone] Social History Tobacco Use Types Packs/Day Years [...] Visit [facility] [address] [place] [address] Lalito Novak MD [address] [place] [address] [place] [address] documented as of this encounter Visit Diagnoses Not on filedocumented in this encounter Care Teams Entrepreneur Relationship Specialty Start Date End Date Lesly Whtye MD [address] [place], [place] [id number] PCP - General Internal Medicine 07/15/20 documented as of this encounter
--- OUTSIDE RECORDS SUMMARY | 2024-09-23 11:57 | XMS_ITS | Encounter Summary ---
Author Organization [facility] Address [address] [place] [address] Phone Care Team Providers Care Systems Specialist Name Role Phone Lesly Whyte MD Primary Care Provider [phone] Encounter Details Date Type Department Care Team (Late st Contact Info) Description 11/22/2023 Documentation Only [facility] [address] [place] [address] Kelley Oakes [place] [address] [place] [phone] Social History Tobacco Use Types Packs/Day Years [...] Visit [facility] [address] [place] [address] Lalito Novak MD [address] [place] [address] [place] [address] documented as of this encounter Visit Diagnoses Not on filedocumented in this encounter Care Teams Systems Specialist Relationship Specialty Start Date End Date Lesly Whyte MD [address] [place], [place] [phone] PCP - General Internal Medicine 07/15/20 documented as of this encounter
--- OUTSIDE RECORDS SUMMARY | 2024-09-23 11:57 | XMS_ITS | Clinical Summary ---
Author Organization [facility] [place], Address [address] [place] [address] [place] [address] Phone Care Team Providers Care Medical Biller Coder Name Role Phone Lesly Whyte MD Primary Care Provider [phone] Allergies Active Allergy Reactions Criticality Noted Date [...] Office Visit [facility], [address] [place] [address] Lalito Novak MD Stage 3b chronic kidney [...] Office Visit [facility], [address] [place] [phone] Lalito Novak MD [address] [place] [phone] Health Maintenance Due Date Last Done Comments Pneumococcal Vaccine: 50+ Ye ars (1 of 2 - PCV) 07/28/1971 Colorectal Cancer Screening: Annual FOBT 2001 Colorectal Cancer Screening: Colonoscopy 2001 Colorectal Cancer Screening: Sigmoidoscopy 2001 Influenza Vaccine (Season Ended) 2025 Hepatitis B Vaccine Aged Out No longe r eligible based on patient's age to complete this topic Insurance [facility] Medicare Care Teams Medical Biller Coder Relationship Specialty Start Date End Date Lesly Whyte MD [address] [place] [address] PCP - General Internal Medicine 07/15/20
== END 2024-09-23 10:43 | disposition home or self-care (01) ==
LOC: HO.PET 10:42
PROVIDERS: PCP Nurse Practitioner Family; Visit Provider Urology
DX: Z13.89 Encounter for screening for other disorder (principal)

== ENCOUNTER 2024-09-30 08:29 | Outpatient (REF) | payer MEDICARE, SELFPAY ==
--- NOTE | ~2024-09-30 | MR_ITS ---
EXAMINATION: MR PROSTATE WITHOUT THEN WITH IV CONTRAST HISTORY: R97.20 - Elevated prostate specific antigen [PSA] TECHNIQUE: 1.5T body coil survey of the pelvis was performed. Phase array coil imaging of the prostate was performed in multiplanar high resolution axial, coronal, sagittal fast spin echo T2 and axial T1 weighted imaging sequences. Axial diffusion imaging at intermediate and high field performed with ADC mapping. Next, 8.5 mL Gadavist was given by intravenous infusion, and dynamic axial imaging performed. COMPARISON: There are no prior studies for comparison. CLINICAL DATA: Most recent PSA: 5.41 ng/mL on 07/04/2024 PSA Density: 0.31 ng/mL squared Prostate Biopsy: Positive biopsy on 08/14/2024 with a Crockett score 4+3 = 7. FINDINGS: Prostate size: 2.9 x 4.1 x 2.8 cm. Calculated prostate volume is 17.3 mL. Hemorrhage: There are scattered areas of mildly increased T1 signal intensity within the peripheral zone suggestive of residual hemorrhage from prior biopsy. Transitional Zone: There is minimal heterogeneous nodular hypertrophy of the transitional zone. Peripheral Zone: Evaluation of diffusion weighted images is somewhat limited by magnetic susceptibility artifact from a right total hip arthroplasty. However, there is an area of interest within the peripheral zone as described below: Area of interest #1: Location: Left posteromedial peripheral zone in the mid gland/apex (series 7, images 21-22 and series 10, images 13-14) measuring 11 mm. DWI PI-RADS v2.1 score: 4 T2 PI-RADS v2.1 score: 4 DCE PI-RADS v2.1 score: + Overall PI-RADS v2.1 score: 4 Capsular contact: yes Extracapsular extension: None Seminal vesicle invasion: None Neurovascular bundle involvement: None Seminal Vesicles/Ejaculatory Ducts: Symmetric and normal in signal and caliber. Pelvic Lymph Nodes: No obturator or internal iliac lymph nodes meeting size criteria for adenopathy. Marrow Signal: Normal marrow signal and enhancement without focal lesion identified. MR/MR Prostate wo/w con IMPRESSION: Focus of abnormal signal intensity in the left posteromedial peripheral zone in the mid gland/apex, highly suspicious for clinically significant prostate carcinoma. PI-RADS 4: High (clinically significant cancer is likely to be present) PI-RADS Assessment Categories PI-RADS 1: Very low (clinically significant cancer is highly unlikely to be present) PI-RADS 2: Low (clinically significant cancer is unlikely to be present) PI-RADS 3: Intermediate (the presence of clinically significant cancer is equivocal) PI-RADS 4: High (clinically significant cancer is likely to be present) PI-RADS 5: Very high (clinically significant cancer is highly likely to be present) [employer]. MR Prostate Imaging Reporting and Data System version 2.1. [email or web address] Electronically signed by: Mark Cesar MD 09/30/2024 11:13 AM EDT
--- OUTSIDE RECORDS SUMMARY | 2024-09-30 08:43 | XMS_ITS | Encounter Summary ---
Author Organization [facility] Address [address] [place] [address] Phone Care Team Providers Care Data Programmer Name Role Phone Lesly Whyte MD Primary Care Provider [phone] Encounter Details Date Type Department Care Team (Late st Contact Info) Description 11/21/2023 Documentation Only [facility] [address] [place] [address] Kelley Oakes [place] [address] [place] [phone] Social History Tobacco Use Types Packs/Day Years [...] Visit [facility] [address] [place] [place] [address] Lalito Novak MD [address] [place] [address] [place] [address] documented as of this encounter Visit Diagnoses Not on filedocumented in this encounter Care Teams Data Programmer Relationship Specialty Start Date End Date Lesly Whyte MD [address] [place], [place] [id number] PCP - General Internal Medicine 07/15/20 documented as of this encounter
--- OUTSIDE RECORDS SUMMARY | 2024-09-30 08:43 | XMS_ITS | Encounter Summary ---
Author Organization [facility] Address [address] [place] [address] Phone Care Team Providers Care Pocket Marker Name Role Phone Lesly Whyte MD Primary Care Provider [phone] Reason for Visit * Reason Comments Med Refill Encounter Details Date Type Department Care Team (Late st Contact Info) Description 12/02/2020 Refill [facility] [address] [place] [phone] Prosper Valencia MD Social History Tobacco Use [...] Office Visit [facility] [address] [place] [address] Lalito Novak MD [address] [place] [address] [place] [address] documented as of this encounter Visit Diagnoses Not on filedocumented in this encounter Care Teams Pocket Marker Relationship Specialty Start Date End Date Lesly Whyte MD [address] [place] [address] PCP - General Internal Medicine 07/15/20 documented as of this encounter
--- OUTSIDE RECORDS SUMMARY | 2024-09-30 08:43 | XMS_ITS | Encounter Summary ---
Author Organization [facility] Address [address] [place] [address] Phone Care Team Providers Care Visual Merchandising Director Name Role Phone Lesly Whyte MD Primary Care Provider [phone] Encounter Details Date Type Department Care Team (Late st Contact Info) Description 11/28/2023 Documentation Only [facility] [address] [place] [address] Kelley Oakes [place] [address] [place] [phone] Social History Tobacco Use Types Packs/Day Years [...] Visit [facility] [address] [place] [address] Lalito Novak MD [address] [place] [address] [place] [address] documented as of this encounter Visit Diagnoses Not on filedocumented in this encounter Care Teams Visual Merchandising Director Relationship Specialty Start Date End Date Lesly Whyte MD [address] [place], [place] [phone] PCP - General Internal Medicine 07/15/20 documented as of this encounter
--- OUTSIDE RECORDS SUMMARY | 2024-09-30 08:43 | XMS_ITS | Clinical Summary ---
Author Organization [facility] [place], Address [address] [place] [address] [place] [address] Phone Care Team Providers Care Computer Aided Design Technician Name Role Phone Lesly Whyte MD Primary Care Provider [phone] Allergies Active Allergy Reactions Criticality Noted Date [...] Office Visit [facility] [place], [address] [place] [address] Lalito Novak MD Stage 3b chronic kidney [...] Office Visit [facility] [place], [address] [place] [address] Lalito Novak MD [address] [place] [address] Health Maintenance Due Date Last Done Comments Pneumococcal Vaccine: 50+ Ye ars (1 of 2 - PCV) 07/28/1971 Colorectal Cancer Screening: Annual FOBT 2001 Colorectal Cancer Screening: Colonoscopy 2001 Colorectal Cancer Screening: Sigmoidoscopy 2001 Influenza Vaccine (Season Ended) 2025 Hepatitis B Vaccine Aged Out No longe r eligible based on patient's age to complete this topic Insurance [facility] Medicare Care Teams Computer Aided Design Technician Relationship Specialty Start Date End Date Lesly Whyte MD [address] [place] [address] PCP - General Internal Medicine 07/15/20
--- OUTSIDE RECORDS SUMMARY | 2024-09-30 08:43 | XMS_ITS | Encounter Summary ---
Author Organization [facility] Address [address] [place] [address] Phone Care Team Providers Care Vice President Of Human Resources Name Role Phone Lesly Whyte MD Primary Care Provider [phone] Encounter Details Date Type Department Care Team (Late st Contact Info) Description 11/22/2023 Documentation Only [facility] Of [address] [place] [address] Kelley Oakes [place] [address] [place] [phone] Social History Tobacco Use Types Packs/Day Years [...] Visit [facility] Of [address] [place] [address] Lalito Novak MD [address] [place] [address] [place] [address] documented as of this encounter Visit Diagnoses Not on filedocumented in this encounter Care Teams Vice President Of Human Resources Relationship Specialty Start Date End Date Lesly Whyte MD [address] [place], [place] [phone] PCP - General Internal Medicine 07/15/20 documented as of this encounter
[2024-09-30] MEDS: gadobutroL 10 ML VIAL IVPUSH (09:51)
== END 2024-09-30 08:30 | disposition home or self-care (01) ==
LOC: HO.MRI 08:29
PROVIDERS: Visit Provider Urology
DX: R97.20 Elevated prostate specific antigen [PSA] (principal)
CPT/HCPCS: 72197; A9585

== ENCOUNTER → 2024-09-30 08:44 | Outpatient (BNV) | payer MEDICARE, SELFPAY | PROVIDERS: Visit Provider Radiology Diagnostic Radiology | DX: R97.20 Elevated prostate specific antigen [PSA] (principal) | CPT/HCPCS: 72197 ==

== ENCOUNTER 2024-10-17 09:37 | Outpatient (AMB) | payer MEDICARE, SELFPAY ==
--- NOTE | 2024-10-17 09:48 | A.OFFVIS_ITS ---
Intake Visit Reasons: 6w/MRI/PSMA Intake Note: Patient is present for 6w/MRI/PET Urology Medication:FINASTERIDE,TADALAFIL Antibiotic Allergy:SULFA,BACTRIM Blood Thinner:NONE [employer] Chief Scientist Required: No Allergies morphine [MORPHINE] Allergy (Mild, Verified 10/17/24 09:57) CONSTIPATION sulfamethoxazole [From Bactrim] Allergy (Unknown, Verified 10/17/24 09:57) Unknown trimethoprim [From Bactrim] Allergy (Unknown, Verified 10/17/24 09:57) Unknown diclofenac Adverse Reaction (Intermediate, Verified 10/17/24 09:57) worsening renal function, hyperkalemia HPI Comments Details: Erasto is a pleasant male. He is a patient of Dr. Whyte, He is seen for the following urologic conditions - lower urinary tract symptoms - prior hydronephrosis - manage through Dr. Valencia - prostate cancer Prolaris borderline single agent therapy versus active surveillance PET-CT no evidence of disease outside prostate Prostate MRI confirms left posterolateral 11 mm lesion abutting capsule Treatment choices include external beam radiation, brachytherapy versus targeted cryotherapy Given constellation of age, comorbidities, imaging and staging findings recommendation would be cryotherapy - prior TURP makes brachytherapy higher chance of incontinence related issues Printed information provided Continues on finasteride 5 mg daily with tadalafil 20 mg daily Prostate cancer low volume, grade group 3 Trigger rising PSA despite finasteride PSA 12/03 2.4, 12/04 3.8, 07/08 5.1 F 22% 60 g prostate at TRUS PT1c 09/05 Histologic type: Adenocarcinoma, acinar type Angelia score: 4+3=7 (left mid medial - 60%), 3+3=6 (left apex lateral 70%, left apex medial - 10%) Grade group: 3 and 1 Tumor quantitation: Number cores positive: 3 Total number of cores: 12 Periprostatic fat inv.: Not identified Seminal vesicle inv.: Not identified Perineural inv.: Present LVI: Not identified Lower Urinary Tract Symptoms: Current visit is for further evaluation of, lower urinary tract symptoms, predominate obstructive symptoms. Current treatment includes medication, alpha gudelia, tamsulosin - since 2007 - added finasteride 07/30 - 08/30 stent with prostate procedure - 07/03 stent removal. - 12/03 combination finasteride and tadalafil g daily Prior treatments include 08/30 prostate procedure, stents 09/29 Lasix renogram. Right 58%, left 42%, reported T 1/2 20 minutes left. States good perfusion with clearance. No obvious obstruction.. - 05/02 Lasix renogram. Prompt excretion bilateral, T half less than 5 minutes bilateral. Prostate Symptom Score 07/02 , Mild (0-8), Bother 3. Symptoms include 07/02 , incomplete emptying, weak stream, and are stable. PSA 07/30 Cr 1.78 08/30 Cr 1.9 01/30 Cr 2.2 07/03 Cr 1.6, 10/31 Cr 1.7, 05/02 2.1, 10/02 1.8, 12/03 1.6, 02/03 1.5 Treatment plan - continue PVR COUNT INCLUDES [facility] Medical History Chronic kidney disease Kidney disease HTN (hypertension) Other hydronephrosis Poor urinary stream Hyponatremia High cholesterol Surgical History History of prostate surgery S/P foot surgery, right History of right hip replacement Family History Father Alzheimer's dementia Mother Heart attack HTN (hypertension) Social History Housing: Condominium Alcohol intake: current Alcohol intake frequency: a few times a week Alcohol type: beer Patient Tobacco Use Status: Current someday Tobacco user Tobacco use type: Cigar e-Cigarette/Vaping Use: Never Used Current occupational status: retired Current occupation: right handed Cognitive needs: No Hearing needs: No Vision needs: No Review of Systems Const Denies chills and Denies fever(s) Card Reports no additional complaints and Denies syncope Resp Denies cough GI Denies abdominal pain and Denies heartburn Reports as per HPI and Denies change in libido Neuro Denies syncope Psych Denies change in libido Endo Denies change in libido Physical Exam Const General: cooperative, healthy appearing, comfortable and no acute distress Orientation/consciousness: patient oriented x3 HEENT Face and sinus: Yes normal facial exam Mouth: moist mucous membranes Neck Neck: Yes normal visual inspection, Yes full ROM and Yes trachea midline Chest Chest palpation & inspection: normal inspection of the chest Resp Effort & Inspection: normal respiratory effort, able to speak in complete sentences and no respiratory distress GI Inspection: Yes normal to inspection Back/Spine/Pelvis Cervical Spine: normal cervical lordosis Thoracic/Lumbar Spine: thoracic and lumbar spine normal to inspection Skin General skin exam: no rashes or lesions noted Neuro General: patient oriented x3, gait normal, tone normal and moves all extremities Extrem General: Yes normal to inspection and Yes capillary refill normal Assessment & Plan Assessment & Plan (1) Hormone sensitive prostate cancer: Code(s): C61 - Malignant neoplasm of prostate; Z19.1 - Hormone sensitive malignancy status Category: Medical Plan The patient was counseled regarding the option of targeted focal cryotherapy for treatment of intermediate-risk, localized prostate cancer. Imaging studies, inc luding multiparametric MRI, identified a solitary 11 mm lesion confined to the posterolateral aspect of the prostate, with PET/CT showing no evidence of regional or distant metastatic disease. Based on current clinical and imaging data, the cancer appears organ-confined and amenable to focal treatment. The benefits of targeted cryotherapy include a minimally invasive approach with preservation of surrounding uninvolved prostate tissue and lower risks of urinary incontinence and erectile dysfunction compared to whole-gland therapy. Cryotherapy allows for outpatient or same-day treatment, minimal recovery time, and can be repeated if necessary. It also preserves options for salvage therapies if disease recurs or progresses. The risks discussed include potential complications such as urinary retention, irritative voiding symptoms, rectal discomfort, hematuria, and erectile dysfunction, particularly if the neurovascular bundles are affected by the freeze zone. There is also a risk of incomplete cancer ablation or disease recurrence, especially in multifocal or microscopic disease not seen on imaging. Post-treatment monitoring with PSA, imaging, and possibly repeat biopsy is essential. The patient demonstrated understanding of the procedure, potential outcomes, and the need for ongoing surveillance. All questions were addressed, and the patient expressed interest in proceeding with focal cryotherapy after reviewing the risks, benefits, and alternatives. Orders: Orders AMB Urinalysis Automated Today C61 - Malignant neoplasm of prostate, N32.0 - Bladder-neck obstruction, R97.20 - Elevated prostate specific antigen [PSA], Z19.1 - Hormone sensitive malignancy status Patient Instructions: This note is constructed using voice recognition software. While every effort has been made to ensure accuracy prototype model maker errors may have been included. Imaging studies, laboratory and physical exam results were discussed and reviewed in detail. No major barriers to patient understanding were identified. An opportunity to ask questions regarding the treatment plan was provided. All questions were answered. The patient expressed understanding and agreement with the above treatment plan. The patient is aware they should contact our office by phone for worsening of their current condition or the appearance of new urologic symptoms. Compliance is encouraged with any medications and followup testing that is ordered. It is a privilege to participate in the urologic care of your patient. If you have any questions or concerns regarding treatment for the above conditions, or other urologic issues, please do not hesitate to contact me. The office telephone contact is [phone]. Sincerely, Dr Chico Cooper MD, [facility] - Urology Compassionate Specialist Care for the Genitourinary System Coding Level of Care Code Est Pt Level 4 (89253) Complex EM visit Add On G2211 Diagnoses Hormone sensitive prostate cancer C61; Z19.1
--- OUTSIDE RECORDS SUMMARY | 2024-10-17 10:13 | XMS_ITS | Encounter Summary ---
Author Organization [facility] Address [address] [place] [address] Phone Care Team Providers Care Outside Plant Cable Engineer Name Role Phone Lesly Whyte MD Primary Care Provider [phone] Reason for Visit * Reason Comments Med Refill Encounter Details Date Type Department Care Team (Late st Contact Info) Description 12/02/2020 [facility]ill [facility] [address] [place] [phone] Prosper Valencia MD Social History Tobacco Use [...] Department Care Team (Late Contact Info) Description 01/06/2025 10:20 AM EDT Office Visit [facility] [address] [place] [address] Lalito Novak MD [address] [place] [address] [place] [phone] documented as of this encounter Visit Diagnoses Not on filedocumented in this encounter Care Teams Outside Plant Cable Engineer Relationship Specialty Start Date End Date Lesly Whyte MD [address] [place] [address] PCP - General Internal Medicine 07/15/20 documented as of this encounter
== END 2024-10-17 10:56 | disposition home or self-care (01) ==
LOC: HO.HUSH 09:38
PROVIDERS: PCP Internal Medicine; Visit Provider Urology
DX: C61 Malignant neoplasm of prostate (principal); Z19.1 Hormone sensitive malignancy status
CPT/HCPCS: 99214; G2211

== ENCOUNTER → 2024-10-17 09:37 | Outpatient (BNVA) | payer MEDICARE, SELFPAY | PROVIDERS: PCP Internal Medicine; Visit Provider Urology | DX: C61 Malignant neoplasm of prostate (principal); Z19.1 Hormone sensitive malignancy status | CPT/HCPCS: 99212 ==

== ENCOUNTER 2024-11-27 07:08 | Outpatient (REF) | payer MEDICARE, SELFPAY ==
--- OUTSIDE RECORDS SUMMARY | 2024-11-27 07:11 | XMS_ITS | Encounter Summary ---
Author Organization [facility] Address [address] [place] [address] Phone Care Team Providers Care Credit Verifier Name Role Phone Lesly Whyte MD Primary Care Provider [phone] Reason for Visit * Reason Comments Med Refill Encounter Details Date Type Department Care Team (Late st Contact Info) Description 12/02/2020 Refill [facility] [address] [place] [phone] Prosper Valencia MD Social History Tobacco Use [...] Office Visit [facility] [address] [place] [address] Lalito Novak MD [address] [place] [address] [place] [phone] documented as of this encounter Visit Diagnoses Not on filedocumented in this encounter Care Teams Credit Verifier Relationship Specialty Start Date End Date Lesly Whyte MD [address] [place] [address] PCP - General Internal Medicine 07/15/20 documented as of this encounter
[2024-11-27 10:07] LABS: MANUAL DIFF FLAG NO
[2024-11-27 10:10] LABS: Hematocrit 32.0 % (42.0-52.0); Hemoglobin 11.3 g/dl (14.0-18.0); Imm Gran Abs Auto 0.03 X10*3/uL (0.00-0.03); Imm Gran Pct Auto 0.4 % (0.0-0.4); Lymphocytes Absolute Auto 1.7 X10*3/uL (1.2-4.9); Mean Corpuscular HGB Conc 35.3 g/dl (31.0-36.0); Mean Corpuscular Hemoglobin 32.7 pg (27.0-33.0); Mean Corpuscular Volume 92.5 fL (80.0-98.0); NRBC Abs Auto 0.000 X10*3/uL (0.0-0.012); NRBC Pct Auto 0.0 /100WBC (0.0-0.2); Platelet Count 231 X10*3/uL (160-400); Red Blood Count 3.46 X10*6/uL (4.60-5.80); White Blood Count 8.3 X10*3/uL (4.8-10.8)
[2024-11-27 10:47] LABS: Alanine Aminotransferase 24 U/L (0-40); Albumin Level 4.5 g/dL (3.5-5.0); Alkaline Phosphatase 64 U/L (39-117); Anion Gap 13 (12-20); Aspartate Amino Transferase 25 U/L (5-37); Blood Urea Nitrogen 15 mg/dL (9-16); Calcium 9.3 mg/dL (8.4-10.2); Carbon Dioxide 23 mmol/L (22-29); Chloride 98 mmol/L (96-108); Cholesterol 161 mg/dL (<200); Estimated Glomerular Filt Rate 39; HDL Cholesterol 97 mg/dL (>40); Potassium 4.7 mmol/L (3.3-5.1); Sodium 129 mmol/L (135-145); Total Protein 7.7 g/dL (6.5-8.0); Triglycerides 47 mg/dL (<150); Uric Acid 7.8 mg/dL (3.4-7.0)
[2024-11-27 11:02] LABS: Microalbum/Creatinine Ratio Ur 39.9 ug/mg cr (<30)
[2024-11-27 11:33] LABS: Appearance Urine Clear; Glucose Urine UA Negative (Negative); PH 6.0 (5.0-9.0); Specific Gravity - Urine 1.010 (1.005-1.025)
== END 2024-11-27 07:09 | disposition home or self-care (01) ==
LOC: HO.HMGCLDS 07:08
PROVIDERS: PCP Nurse Practitioner Family; Referring Provider Internal Medicine Nephrology; Visit Provider Nurse Practitioner Family
DX: E78.5 Hyperlipidemia, unspecified (principal); E79.0 Hyperuricemia without signs of inflammatory arthritis and tophaceous disease; I12.9 Hypertensive chronic kidney disease with stage 1 through stage 4 chronic kidney disease, or unspecified chronic kidney disease; N18.32 Chronic kidney disease, stage 3b
CPT/HCPCS: 36415; 80053; 80061; 81003; 82043; 82570; 84443; 84550; 85025

== ENCOUNTER 2024-12-29 10:20 | Day surgery (SDC) | payer MEDICARE, SELFPAY ==
--- OUTSIDE RECORDS SUMMARY | 2024-11-20 07:48 | XMS_ITS | Encounter Summary ---
Author Organization [facility] Address [address] [place] [address] Phone Care Team Providers Care Injection Molding Engineer Name Role Phone Lesly Whyte MD Primary Care Provider [phone] Reason for Visit * Reason Comments Med Refill Encounter Details Date Type Department Care Team (Late st Contact Info) Description 12/02/2020 Refill [facility] [address] [place] [phone] Prosper Valencia MD Social History Tobacco Use [...] Office Visit [facility] [address] [place] [address] Lalito Novak MD [address] [place] [address] [place] [phone] documented as of this encounter Visit Diagnoses Not on filedocumented in this encounter Care Teams Injection Molding Engineer Relationship Specialty Start Date End Date Lesly Whyte MD [address] [place] [address] PCP - General Internal Medicine 07/15/20 documented as of this encounter
[2024-12-25 09:27] VITALS: BMI 29.1
--- NOTE | 2024-12-25 14:55 | P.CONAN_ITS ---
Documented by User: Nona Pringle NP 12/25/24 15:24 HPI - Anesthesia Eval Consult details Narrative: 74yo M for Cryosugical Ablation Prostate Chronic hyponatremia (127-134 since 2020): managed by PCP and follows renal - fluid restriction - Repeat labs DOS 2022 [facility] [place]BBB - Echo OK and prn f/u only PMFSH Active Problems Active Problems: All Active Problems Hormone sensitive prostate cancer (Acute) Elevated PSA (Acute) Elevated uric acid in blood (Acute) Arthrosis of right midfoot (Acute) Effusion, left knee (Acute) White coat syndrome with diagnosis of hypertension (Acute) RBBB (Acute) Physical exam (Acute) Anemia (Acute) Hyponatremia (Acute) CKD (chronic kidney disease) stage 3, GFR 30-59 ml/min (Acute) Hx of colonoscopy (Acute) Annual physical exam (Acute) Cataract (Acute) Medicare annual wellness visit, initial (Acute) Suprapatellar bursitis of left knee (Acute) Prepatellar bursitis, right knee (Acute) Monoarthritis of knee (Acute) Swelling (Acute) Hyperkalemia (Acute) Medial epicondylitis, right elbow (Acute) Erectile dysfunction (Acute) Hydronephrosis (Acute) Bladder outlet obstruction (Acute) HTN (hypertension) (Acute) Dyslipidemia (Acute) Hyponatremia (Acute) Past Medical History Medical History RBBB Chronic kidney disease Kidney disease HTN (hypertension) Other hydronephrosis Poor urinary stream Hyponatremia High cholesterol Family History Family History Father Alzheimer's dementia Mother Heart attack HTN (hypertension) Surgical History Surgical History Hx of cystoscopy History of prostate surgery S/P foot surgery, right History of right hip replacement Social History Social History Housing: Condominium Are you a primary critical care nurse practitioner to a significant other at home: No Do you presently have visiting nurse or other home services: No Alcohol intake: current Alcohol intake frequency: a few times a week Alcohol type: beer Patient Tobacco Use Status: Never used Tobacco Tobacco use type: Cigar e-Cigarette/Vaping Use: Never Used Have you been hit, kicked, punched, or otherwise hurt by someone within the past year? If so, by whom?: No Are you DNR?: No Advance Directives: No Advance Directives Information Provided: Yes Poor oral hygiene: No Current occupational status: retired Current occupation: right handed Cognitive needs: No Hearing needs: No Vision needs: No Meds Allergies Allergy/AdvReac Type Severity Reaction Status Date / Time morphine (MORPHINE) Allergy Mild CONSTIPATIO Verified 12/29/24 11:21 N sulfamethoxazole (From Allergy Unknown Unknown Verified 12/29/24 11:21 Bactrim) trimethoprim (From Bactrim) Allergy Unknown Unknown Verified 12/29/24 11:21 diclofenac AdvReac Intermediate worsening Verified 12/29/24 11:21 renal function, hyperkalemia Home Medications ?Medication ?Instructions ?Recorded ?Confirmed ?Last Taken ?Type amlodipine 10 mg tablet 10 mg PO DAILY 02/13/2012/12 Unknown History metoprolol succinate 50 mg 50 mg PO DAILY 02/13/20 Unknown History tablet,extended release 24 hr tadalafil 20 mg tablet 20 mg PO DAILY 02/13/2012/12 Unknown History folic acid 1 mg tablet 1 mg PO DAILY 04/13/2012/25 Unknown History lisinopril 40 mg tablet 40 mg PO DAILY 06/16/2112/12 Unknown History famotidine 20 mg tablet (Acid-Pep) 20 mg PO BEDTIME MI N Heartburn 01/24/23 12/25/24 Unknown History Exam Height,Weight and Vital Signs: Height 5 ft 7 in Weight 84.368 kg Pertinent Lab Results Pertinent Lab Results: Laboratory Tests 11/27/24 07:52 WBC 8.3 Hgb 11.3 L Hct 32.0 L Plt Count 231 Narrative Narrative: ECHO 2022 Conclusions: - The left ventricular systolic function is hyperdynamic. The calculated ejection fraction is 74% by biplane method. - No obvious valvular pathology seen on this study. Assessment and Plan Assessment Anesthesia Assessment: Chart Reviewed Documented by User: Marlen Mendez MD 12/29/24 12:55 [facility] Past Medical History Medical History RBBB Chronic kidney disease Kidney disease HTN (hypertension) Other hydronephrosis Poor urinary stream Hyponatremia High cholesterol Family History Family History Father Alzheimer's dementia Mother Heart attack HTN (hypertension) Family history of problems with anesthesia: No Surgical History Surgical History Hx of cystoscopy History of prostate surgery S/P foot surgery, right History of right hip replacement History of Problems with Anesthesia: No Social History Social History Housing: [facility] Are you a primary critical care nurse practitioner to a significant other at home: No Do you presently have visiting nurse or other home services: No Alcohol intake: current Alcohol intake frequency: a few times a week Alcohol type: beer Patient Tobacco Use Status: Never used Tobacco Tobacco use type: Cigar e-Cigarette/Vaping Use: Never Used Have you been hit, kicked, punched, or otherwise hurt by someone within the past year? If so, by whom?: No Are you DNR?: No Advance Directives: No Advance Directives Information Provided: Yes Poor oral hygiene: No Current occupational status: retired Current occupation: right handed Cognitive needs: No Hearing needs: No Vision needs: No Meds Allergies Allergy/AdvReac Type Severity Reaction Status Date / Time morphine (MORPHINE) Allergy Mild CONSTIPATIO Verified 12/29/24 11:21 N sulfamethoxazole (From Allergy Unknown Unknown Verified 12/29/24 11:21 Bactrim) trimethoprim (From Bactrim) Allergy Unknown Unknown Verified 12/29/24 11:21 diclofenac AdvReac Intermediate worsening Verified 12/29/24 11:21 renal function, hyperkalemia Home Medications ?Medication ?Instructions ?Recorded ?Confirmed ?Last Taken ?Type amlodipine 10 mg tablet 10 mg PO DAILY 02/13/2012/12 Unknown History metoprolol succinate 50 mg 50 mg PO DAILY 02/13/20 Unknown History tablet,extended release 24 hr tadalafil 20 mg tablet 20 mg PO DAILY 02/13/2012/12 Unknown History folic acid 1 mg tablet 1 mg PO DAILY 04/13/2012/25 Unknown History lisinopril 40 mg tablet 40 mg PO DAILY 06/16/2112/12 Unknown History famotidine 20 mg tablet (Acid-Pep) 20 mg PO BEDTIME MI N Heartburn 01/24/23 12/25/24 Unknown History Exam Airway Mallampati Class: III TM Dist: <=3cm Neck ROM: Limited Heart: rrr Lungs: cta Assessment and Plan Assessment Anesthesia Assessment: Anesthesia Plan Discussed Final Anesthetic Review Family History of Problems with Anesthesia: No History of Problems with Anesthesia: No NPO: Yes ASA Class: III Final Preanesthetic Review: No Changes in Pt Med Stat, Meds/Allgs Chart Reviewed, Consent Obtained/Reviewed and Anes Risks/Benef Reviewed Patient Risk: Intermediate Procedure Risk: Low Anesthetic Plan Anesthetic Plan: GA, MAC: and Agree w/ Assess. and Plan Disposition: Standard PACU
[2024-12-29] MEDS: Lactated Ringers 1,000 ML 100 ML IVCONT (11:00)
[2024-12-29 11:17] VITALS: BMI 28.8
[2024-12-29 11:19] VITALS: BP 136/83; PULSE 78; RESP 16; TEMP 36.2; O2SAT 98
[2024-12-29 11:23] LABS: Anion Gap 17 (12-20); Blood Urea Nitrogen 15 mg/dL (9-16); Calcium 9.9 mg/dL (8.4-10.2); Carbon Dioxide 21 mmol/L (22-29); Chloride 100 mmol/L (96-108); Creatinine Clr Calc Pharmacy 39.8; Estimated Glomerular Filt Rate 39; Potassium 4.9 mmol/L (3.3-5.1); Sodium 133 mmol/L (135-145)
--- NOTE | 2024-12-29 12:59 | MHC.SHP ---
Pre-Procedural Eval Section A - 24 Hr Update-Section A only Date of Service: 12/29/24 The patient is an INPATIENT: No Changes since office visit: No Cold of Flu in the past 2 weeks, No New Medical Problems, No Changes in Medication and No Patient answered all questions The patient has been examined within 24 hours of the surgical procedure. The History & Physical has been completed within 30 days and I have reviewed it.: Yes Section B - Complete if H&P > 30 days Chief Complaint: Malignant neoplasm of prostate Details of Present Illness: Targeted prostate cryotherapy Relevant Social History: None Present Medications: see Short Stay Collaborative assessment Medical History: No relevant PMH History of Previous Operations: No relevant previous surgery Allergies: Allergies Allergy/AdvReac Type Severity Reaction Status Date / Time morphine (MORPHINE) Allergy Mild CONSTIPATIO Verified 12/29/24 11:21 N sulfamethoxazole (From Allergy Unknown Unknown Verified 12/29/24 11:21 Bactrim) trimethoprim (From Bactrim) Allergy Unknown Unknown Verified 12/29/24 11:21 diclofenac AdvReac Intermediate worsening Verified 12/29/24 11:21 renal function, hyperkalemia Review of Systems Sugical H&P ROS: Negative: Constitution, Cardiovascular, Respiratory, Neurological, Psychiatric, Hem-Onc, Allergic/Immunologic, Gastrointestinal, Genitourinary, Musculoskeletal, Integumentary, Endocrine and Eyes/Ears/Nose/Throat Exam Surgical H&P Exam: Normal: HEENT, Normal: Heart, Normal: Lungs, Normal: Extremities, Normal: Abdomen, Normal: Skin and Normal: Neurological Plan Diagnosis/Plan: Unchanged (Targeted prostate cryotherapy) I have reviewed the history and physical and performed a pertinent physical examination on my patient. No changes have occurred unless specified. Time Spent With Patient Time: Total time managing care of this patient today ____ minutes.
[2024-12-29 14:02] VITALS: BP 123/81; PULSE 80; RESP 17; TEMP 36.4; O2SAT 97
[2024-12-29 14:17] VITALS: BP 120/83; PULSE 75; RESP 12; O2SAT 98
[2024-12-29 14:32] VITALS: BP 135/50; PULSE 70; RESP 16; TEMP 36.6; O2SAT 99
--- NOTE | 2025-01-07 16:54 | W.PM.OPN ---
Operative Note Operative Note Date of Service: 01/07/25 Narrative: Preoperative diagnosis: Prostate Cancer Postoperative diagnosis: Prostate Cancer Procedure: 1. Umanzor catheter placement 1. Transrectal Ultrasound prostate 2. Creation of 3D transrectal US model with image registration and model correction including overlap of virtual targeted locations 3. Ultrasound guidance of cryotherapy needle and probe placement 4. Transperineal ultrasound-guided prostate cryotherapy Surgeon: Dr. Chico Cooper Anesthetic: LMA Indications for procedure: Prostate Cancer - 2 cores grade group 1, 1 core grade group 3 - target on primarily left side. Prostate MRI confirms left posterolateral 11 mm lesion abutting capsule Procedure: After informed consent was verified, the patient was brought into the procedure area. Patient identity confirmed. Perioperative antibiotics confirmed. Safety pause time out performed. Anesthesia performed per protocol. Scrotum taped out of operative area. Iodine prep used. 16 Fr umanzor catheter placed on the field with catheter cap. Perineal injection of local anesthetic performed. Ultrasound probe was placed per rectum with adequate lubrication. Ultrasound probe stabilized on a prostate stepper with attached grid. Ultrasound placement was made with external grid calibration for height and prostate diameter in both the transverse and longitudinal planes. Grid A-C covering right prostate and c-F covering left prostate. Numbers 1.0-2.5 covering posterior prostate and 2.5-4.0 covering anterior prostate. [employer] software and hardware platform was used for Ultrasound image acquisition, manual image registration and Ultrasound model creation, and MRI virtual target overlay. Once grid calibration was confirmed prostate ultrasound data acquisition was performed in the stepwise transverse fashion. US prostate image registration was performed using transverse and sagittal generated images. Model boundaries were marked based off acquired images. A three dimensional ultrasound model was created using [employer] software. The model was reviewed against acquired US images. The planned lesion ice ball target, based on prior acquisition of MRI imaging, was overlaid on the ultrasound images and targets confirmed through ultrasound review. Adjustments were then made between real time and projected model targeting locations. Based on pre-planning evaluation the prostate target cryotherapy areas were identified as follows - left side lesion per MRI Cryotherapy area coverage was achieved with - 2 [place] [employer] Ice [employer] needle The first cryotherapy needle was advanced under real time ultrasound at the target coordinates so the tip was just visible at the base of the prostate/bladder interface. Images were reviewed to ensure adequate clearance was obtained between both the urethra, with a umanzor catheter, and the location of the external urethral sphincter. Once in place the needle was quick frozen to stick the prostate to the needle. Cryotherapy cycling was performed as follows - Initial cryotherapy -140C for 8 mins - Active thaw 3 min followed by passive thaw 10 min - Second cryotherapy cycle -140 for 8 mins At the completion of the second cryotherapy cycle active thaw was performed for 3 min. The probe was then rotated and carefully withdrawn. He tolerated the procedure well. Was transferred to stable condition in the PACU. Printed instructions regarding antibiotic use and common side effects such as low-grade temperature, potential infection and bleeding were given CPT codes 48089 - Umanzor catheter placement 85932: Transrectal ultrasound; this is a diagnostic test for evaluation of the prostate and surrounding structures, looking for abnormalities or suspicious areas worrisome for cancer 83691: 3D rendering with interpretation and reporting of computed tomography (CT), MRI, ultrasound, or other tomographic modality with image postprocessing under concurrent supervision; not requiring image postprocessing on an independent workstation - construction of 3D model with TRUS and ongoing refinement of model positioning during procedure 14925: Ultrasonic guidance for needle placement (eg, biopsy, aspiration, injection, localization device), imaging supervision and interpretation 41306 - Perineal prostate cryotherapy
== END 2024-12-29 15:31 | disposition home or self-care (01) ==
PROVIDERS: Nurse Practitioner; Visit Provider Urology
PROC: (CPT 55873; principal; 2024-12-29 12:40)
DX: C61 Malignant neoplasm of prostate (principal); Z19.1 Hormone sensitive malignancy status; R97.20 Elevated prostate specific antigen [PSA]; N32.0 Bladder-neck obstruction; I12.9 Hypertensive chronic kidney disease with stage 1 through stage 4 chronic kidney disease, or unspecified chronic kidney disease; N18.32 Chronic kidney disease, stage 3b; N13.30 Unspecified hydronephrosis; R39.12 Poor urinary stream; E78.00 Pure hypercholesterolemia, unspecified; D64.9 Anemia, unspecified; E87.1 Hypo-osmolality and hyponatremia; Z79.899 Other long term (current) drug therapy; Z88.2 Allergy status to sulfonamides; Z88.5 Allergy status to narcotic agent; Z88.8 Allergy status to other drugs, medicaments and biological substances; Z98.890 Other specified postprocedural states; F17.290 Nicotine dependence, other tobacco product, uncomplicated
CPT/HCPCS: 55873; 36415; 80048; C2618; J0131; J1956; J2003; J2704; J3010

== ENCOUNTER → 2024-12-29 10:20 | Outpatient (BNV) | payer MEDICARE, SELFPAY | PROVIDERS: Visit Provider Urology | DX: C61 Malignant neoplasm of prostate (principal) | CPT/HCPCS: 55873; 76376 ==

== ENCOUNTER 2025-02-24 08:57 | Outpatient (AMB) | payer MEDICARE, SELFPAY ==
[2025-02-24 09:04] VITALS: BP 120/60; PULSE 77; RESP 16; O2SAT 99; BMI 30.1
--- NOTE | 2025-02-24 09:04 | A.OFFPC_ITS ---
Vital Signs 02/24/25 09:04 Height 5 ft 7 in Weight 192 lb BMI 30.1 BP 120/60 Blood Pressure Location Lt brachial Position Sitting Respiration 16 Pulse 77 Pulse Source Pulse Oximeter Pulse Oximetry (%) 99 Oxygen Delivery Method Room Air Intake Visit Reasons: PE - see comments Claims Attorney Required: No Accompanied by: Self / Same As Patient Allergies morphine (MORPHINE) Allergy (Mild, Verified 02/24/25 09:49) CONSTIPATION sulfamethoxazole (From Bactrim) Allergy (Unknown, Verified 02/24/25 09:49) Unknown trimethoprim (From Bactrim) Allergy (Unknown, Verified 02/24/25 09:49) Unknown diclofenac Adverse Reaction (Intermediate, Verified 02/24/25 09:49) worsening renal function, hyperkalemia Medication List - Last Reconciled 02/24/25 by LONNIE SparksP- amlodipine 10 mg PO DAILY atorvastatin 20 mg PO DAILY famotidine (Acid-Pep) 20 mg PO BEDTIME PRN finasteride 5 mg PO DAILY 90 days folic acid 1 mg PO DAILY lisinopril 40 mg PO DAILY metoprolol succinate ER 50 mg PO DAILY tadalafil 20 mg PO DAILY Tobacco use date assessed: 08/12/24 Fall risk assessment: No Falls in past year Last assessed Fall Risk: 02/24/25 Dental Screening Dental Screen Date: 08/12/24 Did you have a dental visit in the last 12 months?: Yes Did you have a dental problem in the last 6 months where you did not have access to dental care?: No Was dental information given to patient?: Patient has dentist HPI PE - see comments HPI Details History of Present Illness The patient is a 74-year-old male presenting with a follow-up physical examination and preventative care. He reports experiencing intermittent loose stools, although not with every bowel movement. He is due for a repeat colon cancer screening next month, and a referral has been made for this. The patient also reports a weak urinary stream and nocturia, having to get up 1 to 2 times at night. He regularly follows up with urology and nephrology for these issues. Health Maintenance - Colon cancer screening scheduled for n ext month Social History Review of Systems - Gastrointestinal: Reports intermittent loose stools. Denies abdominal pain, constipation, diarrhea, or blood in stool. - Genitourinary: Reports weak urinary st ream and nocturia. Denies dysuria or hematuria. denies any fevers, chills, N/V, CP or SOB Physical Exam General: Cooperative, healthy appearing, comfortable, no acute distress and well developed Orientation: Patient oriented x3 Limitations: No limitations Head: Normal to inspection Ears: Hearing grossly normal bilaterally Nose: Normal external nose present Face and sinus: Normal facial exam Eyes: Appearance normal, both eyes and all related structures Neck: Normal visual inspection and Yes full ROM Respiratory: Normal respiratory effort and able to speak in complete sentences. Clear to auscultation bilaterally Cardiovascular: Regular rate and rhythm. Normal S1 and S2, faint systolic murmur GI: Normal to inspection. Soft to palpation and nontender : Testicles without masses/lesions and no hernias appreciated. Skin: No rashes or lesions noted Neuro: Patient oriented x3 Extremities: Normal to inspection Results Plan 1. Preventative Care: Colon Cancer Scree primitivo Referral The patient is scheduled for a repeat colon cancer screening next month, and a referral has been made for this procedure. 2. Urological Follow-Up For Weak Urinary Stream And Nocturia The patient reports a weak urinary stream and nocturia, requiring him to get up 1 to 2 times at night. He is scheduled to follow up with urology for further evaluation and management. 3. Cardiovascular: Faint Systolic Murmur A faint systolic murmur was noted during the examination, and further cardiovascular evaluation may be warranted. Discussion Notes Patient Instructions - Follow up with urology for urinary sym ptoms. - Attend scheduled colon cancer screenin g next month. PFSH Medical History RBBB Chronic kidney disease Kidney disease HTN (hypertension) Other hydronephrosis Poor urinary stream Hyponatremia High cholesterol Surgical History Hx of cystoscopy History of prostate surgery S/P foot surgery, right History of right hip replacement Family History Father Alzheimer's dementia Mother Heart attack HTN (hypertension) Social History Housing: Condominium Are you a primary cattle care worker to a significant other at home: No Do you presently have visiting nurse or other home services: No Alcohol intake: current Alcohol intake frequency: a few times a week Alcohol type: beer Patient Tobacco Use Status: Never used Tobacco Tobacco use type: Cigar e-Cigarette/Vaping Use: Never Used Current occupational status: retired Current occupation: right handed Cognitive needs: No Hearing needs: No Vision needs: No Questionnaire Thrive Questionnaire Date Thrive assessed: 08/12/24 I am a: Patient What is your living situation today?: I have a steady place to live Within the past 12 months, did the food you bought not last and you didn't have the money to get more?: Never true Within the past 12 months, did you worry whether your food would run out before you got money to buy more?: Never true Do you have trouble paying for medicines?: No Do you have trouble getting transportation to medical appointments?: No Do you have trouble paying your heating and electricity bill?: No Do you have trouble taking care of your child, family member or friend?: No Do you have trouble with day-to-day activities such as bathing, preparing meals, shopping, managing finances, etc.?: No Are you currently unemployed and looking for a job?: No Are you interested in more education?: No Please select the resources that you would like help with: None Currently or been in a relationship where the following occur: No concerns reported THRIVE Score: 0 VALENTINO-7 AMB Questionnaire VALENTINO-7 Date VALENTINO - 7 assessed: 08/12/24 Source: Developed by Drs. Mark Paulino, Fernanda Taylor, Andrés Salcedo and colleagues, with an educational artem from [employer]. Physical exam (Primary Care) Vital Signs: Last Vital Signs Pulse 77 02/24/25 09:04 Resp 16 02/24/25 09:04 BP 120/60 02/24/25 09:04 Pulse Ox 99 02/24/25 09:04 Oxygen Delivery Method Room Air 02/24/25 09:04 BMI result Body Mass Index 30.1 Tobacco/Smoking Status: Tobacco use Status Tobacco use date assessed 08/12/24 02/24/25 09:06 Patient Tobacco Use Status Never used Tobacco 02/24/25 09:06 Tobacco use type Cigar 02/24/25 09:06 e-Cigarette/Vaping Use Never Used 02/24/25 09:06 Thrive Assessment: Date of Thrive Assessment Date Thrive assessed 08/12/24 02/24/25 09:06 Currently or been in a relationship where the following occur: No concerns reported Coding Level of Care Code Est Pt Prev Care >65y(52206) Diagnoses Physical exam Z00.00 Screening for colon cancer Z12.11 Assessment & Plan Assessment & Plan (1) Physical exam: Code(s): Z00.00 - Encounter for general adult medical examination without abnormal findings Category: Medical (2) Screening for colon cancer: Code(s): Z12.11 - Encounter for screening for malignant neoplasm of colon Category: Medical Plan . Orders: Orders Comprehensive [place]. Panel Fast Today Z00.00 - Encounter for general adult medical examination without abnormal findings TSH reflex Free T4 Today Z00.00 - Encounter for general adult medical examination without abnormal findings UA CC w/rflx Micro + Cult Today Z00.00 - Encounter for general adult medical examination without abnormal findings Complete Blood Count Auto Diff Today Z00.00 - Encounter for general adult medical examination without abnormal findings Lipid Panel Today Z00.00 - Encounter for general adult medical examination without abnormal findings Referrals Gastroenterology Referral Z12.11 - Encounter for screening for malignant neoplasm of colon
--- OUTSIDE RECORDS SUMMARY | 2025-02-24 09:34 | XMS_ITS | Encounter Summary ---
Author Organization [facility] Address [address] [place] [address] Phone Care Team Providers Care Label Fuser Tender Name Role Phone Lesly Whyte MD Primary Care Provider Encounter Details Date Type Department Care Team (Late st Contact Info) Description 11/21/2023 Documentation Only [facility] [address] [place] [address] Kelley Oakes [place] [address] [place] [phone] Social History Tobacco Use Types Packs/Day Years Used Date Smoking Tobacco: Some Days Cigars Sex and Gender Information Value Date Recorded Sex Assigned at Not on file Legal Sex Male 4:32 PM EST Gender Identity Not on file Sexual Orientation Not on file documented as of this encounter Plan of Treatment Upcoming Encounters Date Type Department Care Team (Late st Contact Info) Description 04/28/2025 8:50 AM EST Office Visit [facility] [address] [place] [phone] Lalito Novak MD [address] [place] [address] [place] [address] documented as of this encounter Visit Diagnoses Not on filedocumented in this encounter Care Teams Label Fuser Tender Relationship Specialty Start Date End Date Lesly Whyte MD [address] [place] [address] PCP - General Internal Medicine 07/15/20 documented as of this encounter
--- OUTSIDE RECORDS SUMMARY | 2025-02-24 09:34 | XMS_ITS | Encounter Summary ---
Author Organization [facility], Address [address] [place] [address] Phone Care Team Providers Care Travel Information Center Supervisor Name Role Phone Lesly Whyte MD Primary Care Provider [phone] Reason for Visit * Reason Comments Med Refill Encounter Details Date Type Department Care Team (Late st Contact Info) Description 12/02/2020 Refill [facility] [address] [place] [phone] Prosper Valencia MD Social History Tobacco Use [...] Visit [facility] [place], [address] [place] [address] Lalito Novak MD [address] [place] [address] [place] [phone] documented as of this encounter Visit Diagnoses Not on filedocumented in this encounter Care Teams Travel Information Center Supervisor Relationship Specialty Start Date End Date Lesly Whyte MD [address] [place] [address] PCP - General Internal Medicine 07/15/20 documented as of this encounter
--- OUTSIDE RECORDS SUMMARY | 2025-02-24 09:34 | XMS_ITS | Clinical Summary ---
Author Organization [facility] [place], Address [address] [place] [address] [place] [address] Phone Care Team Providers Care Preboarder Name Role Phone Lesly Whyte MD Primary Care Provider [phone] Allergies Active Allergy Reactions Criticality Noted Date [...] BY MOUTH ONCE DAILY 200 tablet 2 5 Active metoprolol succinate XL (TOPROL XL) 50 MG 24 hr tablet TAKE 1 TABLET BY MOUTH AT BEDTIME (DO NOT CRUSH OR CHEW) 100 tablet 2 5 Active amLODIPine (NORVASC) 10 MG tablet TAKE 1 TABLET BY MOUTH DAILY 100 tablet 2 5 Active folic acid (FOLVITE) 1 MG tablet TAKE 1 TABLET BY MOUTH DAILY 100 tablet 2 5 Active Active Problems Problem Noted Date Diagnosed Date Stage 3b chronic kidney disease 07/15/2020 Essential hypertension 05/12/2019 Anemia 05/12/2019 Hyperlipidemia 05/12/2019 Vesicoureteric reflux 05/12/2019 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 Hydronephrosis Obstruction of urinary bladder outlet Encounters Date Type Department Care Team Description 01/14/2025 Refill [facility] [address] [place] [address] Lalito Novak MD 01/06/2025 10:20 AM EDT Office Visit [facility] [address] [place] [address] Lalito Novak MD Stage 3b chronic kidney disease (HCC) (Primary Dx) 11/28/2024 Documentation Only [facility] [address] [place] [address] Kelley Oakes MA from Last 3 Months Immunizations Immunization Administration [...] Visit [facility] [address] [place] [address] Lalito Novak MD [address] [place] [address] [place] [address] Health Maintenance Due Date Last Done Comments Pneumococcal Vaccine: 50+ Ye ars (1 of 2 - PCV) 07/28/1971 Colorectal Cancer Screening: Annual FOBT 2001 Colorectal Cancer Screening: Colonoscopy 2001 Colorectal Cancer Screening: Sigmoidoscopy 2001 Influenza Vaccine (#1) 2025 Hepatitis B Vaccine Aged Out No longe r eligible based on patient's age to complete this topic Insurance [facility] Medicare Care Teams Preboarder Relationship Specialty Start Date End Date Lesly Whyte MD [address] [place], [place] [id number] PCP - General Internal Medicine 07/15/20
--- OUTSIDE RECORDS SUMMARY | 2025-02-24 09:34 | XMS_ITS | Encounter Summary ---
Author Organization [facility] Address [address] [place] [address] Phone Care Team Providers Care Silviculture Forester Name Role Phone Lesly Whyte MD Primary Care Provider [phone] Encounter Details Date Type Department Care Team (Late st Contact Info) Description 11/22/2023 Documentation Only [facility] [address] [place] [address] Kelley Oakes [place] [address] [place] [phone] Social History Tobacco Use Types Packs/Day Years [...] Visit [facility] [address] [place] [phone] Lalito Novak MD [address] [place] [address] [place] [address] documented as of this encounter Visit Diagnoses Not on filedocumented in this encounter Care Teams Silviculture Forester Relationship Specialty Start Date End Date Lesly Whtye MD [address] [place] [address] PCP - General Internal Medicine 07/15/20 documented as of this encounter
--- OUTSIDE RECORDS SUMMARY | 2025-02-24 09:34 | XMS_ITS | Encounter Summary ---
Author Organization [facility] Address [address] [place] [address] Phone Care Team Providers Care Peer Financial Counselor Name Role Phone Lesly Whyte MD Primary Care Provider [phone] Encounter Details Date Type Department Care Team (Late st Contact Info) Description 11/28/2024 Documentation Only [facility] [address] [place] [address] Kelley Oaeks [place] [address] [place] [phone] Social History Tobacco Use Types Packs/Day Years [...] Visit [facility] [address] [place] [phone] Lalito Novak MD [address] [place] [address] [place] [address] documented as of this encounter Visit Diagnoses Not on filedocumented in this encounter Care Teams Peer Financial Counselor Relationship Specialty Start Date End Date Lesly Whyte MD [address] [place] [address] PCP - General Internal Medicine 07/15/20 documented as of this encounter
--- OUTSIDE RECORDS SUMMARY | 2025-02-24 09:34 | XMS_ITS | Encounter Summary ---
Author Organization [facility] Address [address] [place] [address] Phone Care Team Providers Care Manager Operating Name Role Phone Lesly Whyte MD Primary Care Provider [phone] Encounter Details Date Type Department Care Team (Late st Contact Info) Description 11/28/2023 Documentation Only [facility] [address] [place] [address] Kelley Oakes [place] [address] [place] [phone] Social History Tobacco Use Types Packs/Day Years [...] Visit [facility] [address] [place] [phone] Lalito Novak MD [address] [place] [address] [place] [address] documented as of this encounter Visit Diagnoses Not on filedocumented in this encounter Care Teams Manager Operating Relationship Specialty Start Date End Date Lesly Whyte MD [address] [place] [address] PCP - General Internal Medicine 07/15/20 documented as of this encounter
== END 2025-02-24 10:03 | disposition home or self-care (01) ==
LOC: HO.HMCC 08:57
PROVIDERS: PCP Internal Medicine; Visit Provider Nurse Practitioner Family
DX: Z00.00 Encounter for general adult medical examination without abnormal findings (principal); Z12.11 Encounter for screening for malignant neoplasm of colon

== ENCOUNTER → 2025-02-24 08:57 | Outpatient (BNVA) | payer MEDICARE, SELFPAY | PROVIDERS: PCP Internal Medicine; Visit Provider Nurse Practitioner Family | DX: Z00.00 Encounter for general adult medical examination without abnormal findings (principal); R19.7 Diarrhea, unspecified; R35.1 Nocturia; R39.12 Poor urinary stream | CPT/HCPCS: 99397 ==

== ENCOUNTER 2025-04-01 12:36 | Outpatient (AMB) | payer MEDICARE, SELFPAY ==
--- NOTE | 2025-04-01 12:56 | MHC.OFFVIS ---
Intake Visit Reasons: Prostate Cryo(01/28/25) Intake Note: Patient is present for Prostate Cryo Urology Med: Finasteride, Tadalafil Antibiotic Allergy: Sulfa, Trimethoprim Blood Thinner: None Last PSA: 5.1 07/04/24 PVR: 48ml Assisted Living Associate Required: No Accompanied by: Self / Same As Patient Allergies morphine (MORPHINE) Allergy (Mild, Verified 04/01/25 12:59) CONSTIPATION sulfamethoxazole (From Bactrim) Allergy (Unknown, Verified 04/01/25 12:59) Unknown trimethoprim (From Bactrim) Allergy (Unknown, Verified 04/01/25 12:59) Unknown diclofenac Adverse Reaction (Intermediate, Verified 04/01/25 12:59) worsening renal function, hyperkalemia HPI Comments Details: Erasto is a pleasant male. He is a patient of Dr. Whyte, He is seen for the following urologic conditions - lower urinary tract symptoms - prior hydronephrosis - manage through Dr. Valencia - prostate cancer 8 week follow-up Did have some restriction to flow after catheter removed Is returning to normal Continues on finasteride 5 mg daily with tadalafil 20 mg daily Six-month follow-up check PSA Prostate cancer low volume, grade group 3 02/05 prostate cryotherapy Trigger rising PSA despite finasteride PSA 12/03 2.4, 12/04 3.8, 07/08 5.1 F 22% 60 g prostate at TRUS PT1c 09/05 Histologic type: Adenocarcinoma, acinar type Angelia score: 4+3=7 (left mid medial - 60%), 3+3=6 (left apex lateral 70%, left apex medial - 10%) Grade group: 3 and 1 Tumor quantitation: Number cores positive: 3 Total number of cores: 12 Periprostatic fat inv.: Not identified Seminal vesicle inv.: Not identified Perineural inv.: Present LVI: Not identified Prolaris borderline single agent therapy versus active surveillance PET-CT no evidence of disease outside prostate Prostate MRI confirms left posterolateral 11 mm lesion abutting capsule Treatment choices include external beam radiation, brachytherapy versus targeted cryotherapy Given constellation of age, comorbidities, imaging and staging findings recommendation would be cryotherapy - prior TURP makes brachytherapy higher chance of incontinence related issues Lower Urinary Tract Symptoms: Current visit is for further evaluation of, lower urinary tract symptoms, predominate obstructive symptoms. Current treatment includes medication, alpha gudelia, tamsulosin - since 2007 - added finasteride 07/30 - 08/30 stent with prostate procedure - 07/03 stent removal. - 12/03 combination finasteride and tadalafil g daily Prior treatments include 08/30 prostate procedure, stents 09/29 Lasix renogram. Right 58%, left 42%, reported T 1/2 20 minutes left. States good perfusion with clearance. No obvious obstruction.. - 05/02 Lasix renogram. Prompt excretion bilateral, T half less than 5 minutes bilateral. Prostate Symptom Score 07/02 , Mild (0-8), Bother 3. Symptoms include 07/02 , incomplete emptying, weak stream, and are stable. PSA 07/30 Cr 1.78 08/30 Cr 1.9 01/30 Cr 2.2 07/03 Cr 1.6, 10/31 Cr 1.7, 05/02 2.1, 10/02 1.8, 12/03 1.6, 02/03 1.5 Treatment plan - continue PVR PFSH Medical History RBBB Chronic kidney disease Kidney disease HTN (hypertension) Other hydronephrosis Poor urinary stream Hyponatremia High cholesterol Surgical History Hx of cystoscopy History of prostate surgery S/P foot surgery, right History of right hip replacement Family History Father Alzheimer's dementia Mother Heart attack HTN (hypertension) Social History [facility] Are you a primary critical care physician to a significant other at home: No Do you presently have visiting nurse or other home services: No Alcohol intake: current Alcohol intake frequency: a few times a week Alcohol type: beer Patient Tobacco Use Status: Never used Tobacco Tobacco use type: Cigar e-Cigarette/Vaping Use: Never Used Current occupational status: retired Current occupation: right handed Cognitive needs: No Hearing needs: No Vision needs: No Review of Systems Const Denies chills and Denies fever(s) Card Reports no additional complaints and Denies syncope Resp Denies cough GI Denies abdominal pain and Denies heartburn Reports as per HPI and Denies change in libido Neuro Denies syncope Psych Denies change in libido Endo Denies change in libido Physical Exam Const General: cooperative, healthy appearing, comfortable and no acute distress Orientation/consciousness: patient oriented x3 HEENT Face and sinus: Yes normal facial exam Mouth: moist mucous membranes Neck Neck: Yes normal visual inspection, Yes full ROM and Yes trachea midline Chest Chest palpation & inspection: normal inspection of the chest Resp Effort & Inspection: normal respiratory effort, able to speak in complete sentences and no respiratory distress GI Inspection: Yes normal to inspection Back/Spine/Pelvis Cervical Spine: normal cervical lordosis Thoracic/Lumbar Spine: thoracic and lumbar spine normal to inspection Skin General skin exam: no rashes or lesions noted Neuro General: patient oriented x3, gait normal, tone normal and moves all extremities Extrem General: Yes normal to inspection and Yes capillary refill normal Office Procedures Post Void Residual Post Residual Void Post Void Residual (PVR): 48 [id number] Void Residual by ultrasound Assessment & Plan Assessment & Plan (1) Hormone sensitive prostate cancer: Code(s): C61 - Malignant neoplasm of prostate; Z19.1 - Hormone sensitive malignancy status Category: Medical Plan Six-month follow-up PSA office Orders: Orders Prostate Specific Antigen 6 Months C61 - Malignant neoplasm of prostate, Z19.1 - Hormone sensitive malignancy status AMB Post Void Residual by ultrasound Today N32.0 - Bladder-neck obstruction Patient Instructions: This note is constructed using voice recognition software. While every effort has been made to ensure accuracy supplier quality errors may have been included. Imaging studies, laboratory and physical exam results were discussed and reviewed in detail. No major barriers to patient understanding were identified. An opportunity to ask questions regarding the treatment plan was provided. All questions were answered. The patient expressed understanding and agreement with the above treatment plan. The patient is aware they should contact our office by phone for worsening of their current condition or the appearance of new urologic symptoms. Compliance is encouraged with any medications and followup testing that is ordered. It is a privilege to participate in the urologic care of your patient. If you have any questions or concerns regarding treatment for the above conditions, or other urologic issues, please do not hesitate to contact me. The office telephone contact is [phone]. Sincerely, Dr Chico Cooper MD, [facility] - Urology Compassionate Specialist Care for the Genitourinary System Coding Level of Care Code Est Pt Level 3 (41593) Complex EM visit Add On G2211 Diagnoses Hormone sensitive prostate cancer C61; Z19.1 CPT Codes Post Residual Void - PVR CPT Code: 11525-Sipr Void Residual by ultrasound ([id number])
--- OUTSIDE RECORDS SUMMARY | 2025-04-01 23:54 | XMS_ITS | Encounter Summary ---
Author Organization [facility] Address [address] [place] [address] Phone Care Team Providers Care Building Estimator Name Role Phone Lesly Whyte MD Primary Care Provider Encounter Details Date Type Department Care Team (Late st Contact Info) Description 11/28/2024 Documentation Only [facility] [address] [place] [address] [address] [place] [phone] Social History Tobacco Use Types Packs/Day Years [...] Visit [facility] [address] [place] [phone] Lalito Novak MD [address] [place] [address] [place] [address] documented as of this encounter Visit Diagnoses Not on filedocumented in this encounter Care Teams Building Estimator Relationship Specialty Start Date End Date Lesly Whyte MD [address] [place] [address] PCP - General Internal Medicine 07/15/20 documented as of this encounter
--- OUTSIDE RECORDS SUMMARY | 2025-04-01 23:54 | XMS_ITS | Clinical Summary ---
Author Organization [facility] [place], Address [address] [place] [address] [place] [address] Phone Care Team Providers Care Salesperson Burial Plots Name Role Phone Lesly Whyte MD Primary Care Provider [phone] Allergies Active Allergy Reactions Criticality Noted Date [...] Refill [facility] [address] [place] [phone] Lalito Novak MD 01/06/2025 10:20 AM EDT Office Visit [facility] [address] [place] [address] Lalito Novak MD Stage 3b chronic kidney [...] Visit [facility] [address] [place] [address] Lalito Novak MD [address] [place] [address] [place] [phone] Health Maintenance Due Date Last Done Comments Pneumococcal Vaccine: 50+ Ye ars (1 of 2 - PCV) 07/28/1971 Colorectal Cancer Screening: Annual FOBT 2001 Colorectal Cancer Screening: Colonoscopy 2001 Colorectal Cancer Screening: Sigmoidoscopy 2001 Influenza Vaccine (#1) 2025 Hepatitis B Vaccine Aged Out No longe r eligible based on patient's age to complete this topic Insurance [facility] Medicare Care Teams Salesperson Burial Plots Relationship Specialty Start Date End Date Lesly Whyte MD [address] [place] [address] PCP - General Internal Medicine 07/15/20
--- OUTSIDE RECORDS SUMMARY | 2025-04-01 23:54 | XMS_ITS | Encounter Summary ---
Author Organization [facility] [place], Address [address] [place] [address] Phone Care Team Providers Care Shoes Salesperson Name Role Phone Lesly Whyte MD Primary Care Provider [phone] Reason for Visit * Reason Comments Med Refill Encounter Details Date Type Department Care Team (Late st Contact Info) Description 12/02/2020 Refill [facility] [address] [place] [phone] Prosper Valencia MD Social History Tobacco Use [...] Visit [facility] [place], [address] [place] [address] Lalito Novak MD [address] [place] [address] [place] [phone] documented as of this encounter Visit Diagnoses Not on filedocumented in this encounter Care Teams Shoes Salesperson Relationship Specialty Start Date End Date Lesly Whyte MD [address] [place] [address] PCP - General Internal Medicine 07/15/20 documented as of this encounter
--- OUTSIDE RECORDS SUMMARY | 2025-04-01 23:54 | XMS_ITS | Clinical Summary ---
Author Organization [address] [facility] Address [address] [place] [address] Phone Care Team Providers Care Raschel Knitting Machine Operator Name Role Phone Lesly Whyte MD Primary Care Provider [phone] Allergies Active Allergy Reactions Criticality Noted Date Comments Diclofenac Other 02/26/2025 Worsening colt; function,hyerkalemia Morphine Other 05/12/2019 Patient gets constipation Sulfamethoxazole 02/26/2025 Trimethoprim 02/26/2025 Medications amLODIPine (NORVASC) 10 mg tablet Take 1 tablet (10 mg total) by mouth 1 (one) time each day. 4 Active atorvastatin (LIPITOR) 20 mg tablet Take 1 tablet (20 mg total) by mouth daily. Active finasteride (PROSCAR) 5 mg tablet Take 1 tablet (5 mg total) by mouth 1 (one) time each day. Active folic acid (FOLVITE) 1 mg tablet Take 1 tablet (1,000 mcg total) by mouth 1 (one) time each day. 4 Active lisinopriL (PRINIVIL,ZESTR IL) 20 mg tablet Take 2 tablets (40 mg total) by mouth 1 (one) time each day. 5 Active metoprolol succinate (TOPROL-XL) 50 mg 24 hr tablet TAKE 1 TABLET BY MOUTH AT BEDTIME (DO NOT CRUSH OR CHEW) 4 Active famotidine (PEPCID) 20 mg tablet Take by mouth. Activ e tadalafiL (CIALIS) 20 mg tablet Take 1 tablet (20 mg total) by mouth 1 (one) time each day if needed for erectile dysfunction. Active polyethylene glycol (Golytely) 236-22.74-6.74 -5.86 gram solution Take 4L by mouth once for one dose. May substitue any PEG. Starting at 2PM the day before your procedure drink 1 8oz glasses at your own pace until you complete half of the gallon. Finish 2nd half of the gallon at 8PM. 4000 mL 5 Active bisacodyL (DULCOLAX) 5 mg EC tablet Take 2 tablets by mouth right before beginning bowel prep. See instructions provided by the office 2 tablet 5 Active Encounters Date Type Department Care Team Description 02/26/2025 Telephone Gastroenterology - [place] [address] [facility] [address] [facility] [address] [place] [phone] Kiara Motnelongo MD from Last 3 Months Social History Tobacco Use Types Packs/Day Years Used Date Smoking Tobacco: Never Assessed Sex and Gender Information Value Date Recorded Sex Assigned at Not on file Legal Sex Male 9:31 AM EST Gender Identity Not on file Sexual Orientation Not on file Plan of Treatment Upcoming Encounters Date Type Department Care Team (Late st Contact Info) Description 04/14/2025 9:00 AM EST Appointment [facility] Endoscopy [address] [place] [phone] Olayinka Funes MD [address] [facility] [address] [place] [address] Health Maintenance Due Date Last Done Comments DTaP,Tdap,and Td Vaccines (1 - Tdap) 07/28/1971 Pneumococcal Vaccine: 50+ Years (1 of 1 - PCV) 2002 Zoster Vaccines (1 of 2) 2002 Depression Screening 05/14/2024 Abdominal Aortic Aneurysm (AAA) Screen 08/29/2024 Cholesterol Screening (Lipid Panel) 08/29/2024 Falls Risk Assessment 08/29/2024 Hepatitis C Screening 08/29/2024 Medicare Annual Wellness Visit 08/29/2024 Social Influencers of Health Screening 08/29/2024 Hypertension/CHF/CAD Annual BMP Blood Test 01/06/2025 COVID-19 Vaccine (3 - 2024-2 6 season) 2025 09/23/2020, 09/02/2020 Influenza Vaccine (#1) 2025 RSV Immunization Adult Patients (1 - 1-dose 75+ series) 07/28/2027 Colorectal Cancer Screening: Colonoscopy 04/12/2030 04/12/2020 HIB Vaccines Aged Out No longer eligi ble based on patient's age to complete this topic HPV Vaccines Aged Out No longer eligi ble based on patient's age to complete this topic Hepatitis A Vaccines Aged Out No long er eligible based on patient's age to complete this topic Hepatitis B Vaccines Aged Out No long er eligible based on patient's age to complete this topic IPV Vaccines Aged Out No longer eligi ble based on patient's age to complete this topic MMR Vaccines Aged Out No longer eligi ble based on patient's age to complete this topic Meningococcal ACWY Vaccine Aged Out N o longer eligible based on patient's age to complete this topic Meningococcal B Vaccine Aged Out No l onger eligible based on patient's age to complete this topic RSV Immunization Patients Under 20 months Aged Out No longer eligible b ased on patient's age to complete this topic Varicella Vaccines Aged Out No longer eligible based on patient's age to complete this topic Goals Goal Patient Goal Type Associated Problems Recent Progress Patient-Stated? Author Autogenerat ed Goal Care Plan Autogenerated Problem No Alicia Pierson Procedures Procedure Name Priority Date/Time Associated Diagnosis Comments EXTERNAL COLONOSCOPY REPORT Routine 04/12/2020 9:06 AM EST from Last 3 Months or Most Recently Relevant to Health Maintenance Results * External Colonoscopy Report (04/12/2020 9:06 AM EST) Anatomical Region Laterality Modality Endoscopy us Historical Provider GI~PROCEDURE ORDERABLES F inal Result from Last 3 Months or Most Recently Relevant to Health Maintenance Additional Health Concerns Active Problems Noted Date Diagnosed Date Autogenerated Problem 02/27/2025 Insurance [place] [address] Care Teams Raschel Knitting Machine Operator Relationship Specialty Start Date End Date Lesly Whyte MD [address] [place] [address] PCP - General Internal Medicine 02/26/25
--- OUTSIDE RECORDS SUMMARY | 2025-04-01 23:54 | XMS_ITS | Encounter Summary ---
Author Organization [facility] Address [address] [place] [address] Phone Care Team Providers Care Pediatrician Active Practice Name Role Phone Lesly Whyte MD Primary Care Provider [phone] Encounter Details Date Type Department Care Team (Late st Contact Info) Description 11/28/2023 Documentation Only [facility] [address] [place] [address] Kelley Oakes [place] [address] [place] [phone] Social History Tobacco Use Types Packs/Day Years [...] Visit [facility] [address] [place] [phone] Lalito Novak MD [address] [place] [address] [place] [address] documented as of this encounter Visit Diagnoses Not on filedocumented in this encounter Care Teams Pediatrician Active Practice Relationship Specialty Start Date End Date Lesly Whyte MD [address] [place] [address] PCP - General Internal Medicine 07/15/20 documented as of this encounter
--- OUTSIDE RECORDS SUMMARY | 2025-04-01 23:54 | XMS_ITS | Encounter Summary ---
Author Organization [facility] Address [address] [place] [address] Phone Care Team Providers Care Cook Boat Name Role Phone Lesly Whyte MD Primary Care Provider Encounter Details Date Type Department Care Team (Late st Contact Info) Description 11/22/2023 Documentation Only [facility] [address] [place] [address] Kelley Oakes [place] [address] [place] [phone] Social History Tobacco Use Types Packs/Day Years [...] Visit [facility] [address] [place] [phone] Lalito Novak MD [address] [place] [address] [place] [address] documented as of this encounter Visit Diagnoses Not on filedocumented in this encounter Care Teams Cook Boat Relationship Specialty Start Date End Date Lesly Whyte MD [address] [place] [address] PCP - General Internal Medicine 07/15/20 documented as of this encounter
--- OUTSIDE RECORDS SUMMARY | 2025-04-01 23:54 | XMS_ITS | Encounter Summary ---
Author Organization [facility] Address [address] [place] [address] Phone Care Team Providers Care Station Chief Name Role Phone Lesly Whyte MD Primary Care Provider [phone] Encounter Details Date Type Department Care Team (Late st Contact Info) Description 11/21/2023 Documentation Only [facility] [address] [place] [address] Kelley Oakes MD [address] [place] [phone] Social History Tobacco Use Types Packs/Day Years [...] [facility] [address] [place] [phone] Lalito Novak MD [address] [place] [address] [place] [address] documented as of this encounter Visit Diagnoses Not on filedocumented in this encounter Care Teams Station Chief Relationship Specialty Start Date End Date Lesly Whyte MD [address] [place] [address] PCP - General Internal Medicine 07/15/20 documented as of this encounter
== END 2025-04-01 13:16 | disposition home or self-care (01) ==
LOC: HO.HUSH 12:37
PROVIDERS: Visit Provider Urology
DX: C61 Malignant neoplasm of prostate (principal); Z19.1 Hormone sensitive malignancy status
CPT/HCPCS: 99024

== ENCOUNTER → 2025-04-01 12:36 | Outpatient (BNVA) | payer MEDICARE, SELFPAY | PROVIDERS: Visit Provider Urology | DX: C61 Malignant neoplasm of prostate (principal); Z19.1 Hormone sensitive malignancy status; N32.0 Bladder-neck obstruction; Z98.890 Other specified postprocedural states | CPT/HCPCS: 51798; 99212 ==